=== PATIENT | male | born 1940 | race Caucasian/White ===

== ENCOUNTER → 2017-07-24 15:37 | Outpatient (CLI) | payer MEDICARE, OTHER, SELFPAY ==
[2017-07-24 18:21] LABS: Vitamin D,25 Hydroxy 49.2 ng/mL (29.95-100.01)
[2017-07-24 18:26] LABS: ALB/GLOB Ratio 1.1 RATIO (0.9-2.4); AST(SGOT) 37 U/L (15-37); Alanine Aminotransfer ALT/SGPT 72 U/L (16-61); Albumin, Serum 3.8 g/dL (3.2-5.0); Alkaline Phosphatase 74 U/L (45-117); Anion Gap 7 (5-15); BUN 19 mg/dL (7-18); BUN/Creat Ratio 17.4 RATIO (10-20); Calcium,Total 8.5 mg/dL (8.5-10.1); Chloride 98 mmol/L (98-107); Creatinine, Serum 1.09 mg/dL (0.70-1.30); EST Glomerular Filtration Rate 70 mL/min (>60); Est Glom Filt Rate - Afr Amer 85 mL/min (>60); Globulin 3.5 g/dL (2.2-4.2); Glucose 80 mg/dL (74-106); Potassium 4.1 mmol/L (3.5-5.1); Protein, Total 7.3 g/dL (6.4-8.2); Sodium Level 134 mmol/L (136-145); Thyroid Stim Hormone (TSH) 0.85 uIU/mL (0.358-3.74)
== END ==
PROVIDERS: Family Provider Internal Medicine; PCP Internal Medicine; Visit Provider Internal Medicine Endocrinology, Diabetes & Metabolism
DX: E03.8 Other specified hypothyroidism (principal); E55.9 Vitamin D deficiency, unspecified
CPT/HCPCS: 36415; 80053; 82306; 84443

== ENCOUNTER → 2018-03-20 07:18 | Outpatient (CLI) | payer MEDICARE, OTHER, SELFPAY ==
[2018-03-20 09:09] LABS: ALB/GLOB Ratio 1.1 RATIO (0.9-2.4); AST(SGOT) 26 U/L (15-37); Alanine Aminotransfer ALT/SGPT 52 U/L (16-61); Albumin, Serum 3.9 g/dL (3.2-5.0); Alkaline Phosphatase 63 U/L (45-117); Anion Gap 9 (5-15); BUN 17 mg/dL (7-18); BUN/Creat Ratio 18.7 RATIO (10-20); Calcium,Total 8.6 mg/dL (8.5-10.1); Chloride 96 mmol/L (98-107); Cholesterol 129 mg/dL (200); Creatinine, Serum 0.91 mg/dL (0.70-1.30); EST Glomerular Filtration Rate 86 mL/min (>60); Est Glom Filt Rate - Afr Amer 104 mL/min (>60); Globulin 3.7 g/dL (2.2-4.2); Glucose 115 mg/dL (74-106); High Density Lipoprotein 66 mg/dL; PSA,Total - Annual Screen 2.99 ng/mL (0.00-4.00); Potassium 4.3 mmol/L (3.5-5.1); Protein, Total 7.6 g/dL (6.4-8.2); Sodium Level 133 mmol/L (136-145); Triglycerides 67 mg/dL; Very Low Density Lipoprotein 13 mg/dL (5-40)
[2018-03-20 12:42] LABS: Hematocrit 42.8 % (40-54); Hemoglobin 14.4 g/dl (13.0-16.5); Mean Corp Hgb Conc 33.6 g/gl (32-36); Mean Corpuscular Hgb 30.6 pg (27.0-32.0); Mean Corpuscular Volume 91.1 fL (80-94); Mean Platelet Vol. 10.1 fl (6.2-12.0); Platelet Count 165 K/mm3 (150-450); RBC Distribution Width CV 13.3 % (11.6-14.6); RBC Distribution Width SD 43.8 fl (35.1-43.9); White Blood Count 5.1 K/mm3 (4.4-11.0)
[2018-03-20 12:43] LABS: Scan Indicated on CBC? Y/N NO
== END ==
PROVIDERS: Family Provider Internal Medicine; PCP Internal Medicine; Referring Provider Internal Medicine; Visit Provider Internal Medicine
DX: Z01.818 Encounter for other preprocedural examination (principal); E78.5 Hyperlipidemia, unspecified; Z12.5 Encounter for screening for malignant neoplasm of prostate
CPT/HCPCS: 36415; 80053; 80061; 84153; 85027; G0103

== ENCOUNTER → 2018-07-03 08:26 | Outpatient (CLI) | payer MEDICARE, OTHER, SELFPAY ==
[2018-07-03 10:32] LABS: Glucose 118 mg/dL (74-106)
[2018-07-03 12:17] LABS: Hemoglobin A1c 5.8 % (4.2-6.3)
== END ==
PROVIDERS: Family Provider Internal Medicine; PCP Internal Medicine; Referring Provider Internal Medicine; Visit Provider Internal Medicine
DX: R73.9 Hyperglycemia, unspecified (principal); E78.5 Hyperlipidemia, unspecified; I10 Essential (primary) hypertension
CPT/HCPCS: 36415; 82947; 83036

== ENCOUNTER 2018-08-26 13:30 | Outpatient (RCR) | payer MEDICARE, OTHER, SELFPAY ==
--- NOTE | 2018-08-07 17:51 | HP.OTEVAL ---
Patient's Visit Information AVEL SANFORD is a 78 year old M, referred to Occupational Therapy by Josesito Alas PA-C, with a diagnosis of synovitis and tenosynovitis R hand. Date of Evaluation: 08/07/18 Occupational Therapist: Alba Alcaraz - Subjective Subjective: Pt seen for initial occupational therapy evaluation secondary to synovitis and tenosynovitis R middle finger and ring finger with increased pain R middle finger and R ring finger. Pt had trigger finger release March 2018 Dr. Kraft was doing well and now has started having increased pain and stiffness with decreased ROM. Pt states increased pain and stiffness of joints especially in the morning when he wakes up and will sometimes wake him up at night. Pt R hand dominent. Pt lives by himself, independent with all BADLs/IADLs works out several times a week variety of classes silver sneakers at [facility]. - Pain R MF and RF 4 Pain Intensity Range: 0, 9 - Objective Objective/Observation: increased edema R hand MF, RF, decreased AROM R MF, RF - ROM ROM Comments: R MP MF -10/100 RF -5/99 L MP MF 0/108 RF 0/109. R PIP MF -3/95 RF -3/88 L PIP MF 0/103 RF 0/106. R DIP MF -3/40 RF -2/25 L DIP MF 0/60 RF 0/40 - Strength Employment Program Representative: R 33#, L 75# Lateral Pinch: R 8 # L 17# Tripod Pinch: R 2#, L 12# - Edema Other: Slight edema volar side R hand - Sensation Sensation Comments: tingling R MF and RF occassionally, not at time of evaluation - Quick DASH-Disab of Arm,Shoulder& Hand Quick DASH Score: 34.0900 - Goals Goal:: Pt will progress w/ R hand non destructive tester strength by 40# to be able to open containers independently by d/c from OT. Pt will progress w/ R hand tripod pinch by 8# to increase indep with functional living tasks. Goal:: Pt will progress with R middle finger MP extension by 8' and PIP extension by 3' to increase indep with functional living tasks by d/c from OT services. Goal:: Pt will demo no pain greater than 1/10 R hand with movement by d/c from OT services. Goal:: Pt will be educated on R UE HEP with good understanding and demo 100%x - Rehabilitation General Assessment: Pt seen for initial OT evaluation for synovitis, tenosynovitis R hand with decreased AROM R hand MF and RF, increased pain with movement, increased edema R hand and decreased non destructive tester strength R hand all indicating a need for skilled OT interventions to increase AROM, decrease pain and edema, increase non destructive tester/pinch strength R hand, educate on HEP and manual massage techniques for R hand to increase pts ability to use R hand normally again. 1-2x/wk x 4-6wks Rehabilitation Potential: Excellent - Anticipated Interventions Anticipated Interventions: A/AAROM/PROM, Strengthening, Edema Control, Scar Care, Massage, Modalities, Orthoses, Joint Protection/Energy Conservation, Ergonomic Education, Fine Motor Coord/John, ADL Training, Education re assistive Equipment, Education re Diagnosis, Education re Self Massage Techniques, Home Program - Visit Plan Frequency: 1-2x /Week Duration: 4-6 Weeks General Plan: increase AROM, decrease pain and edema, increase non destructive tester/pinch strength R hand, educate on HEP and manual massage techniques for R hand to increase pts ability to use R hand normally again with use of modalities as needed TEXT: Thank you for the opportunity to evaluate your patient. For Medicare and Medicare HMO plans, please review the plan of care and approve it. It will need to be FAXED BACK to us at [phone] for Medicare purposes. Please let me know if there are questions or concerns regarding this plan of care. Physician Signature: Date:
== END 2018-08-26 19:00 | disposition home or self-care (01) ==
LOC: OT 13:30
PROVIDERS: Family Provider Internal Medicine; PCP Internal Medicine; Referring Provider Physician Assistant; Visit Provider Physician Assistant
DX: M65.841 Other synovitis and tenosynovitis, right hand (principal)
CPT/HCPCS: 97035; 97110; 97140; 97165; 97166; 97530

== ENCOUNTER → 2018-10-01 | Outpatient (CLI) | payer MEDICARE, OTHER, SELFPAY ==
[2018-10-01 10:41] LABS: Vitamin D,25 Hydroxy 46.1 ng/mL (29.95-100.01)
[2018-10-01 10:55] LABS: AST(SGOT) 40 U/L (15-37); Alanine Aminotransfer ALT/SGPT 73 U/L (16-61); Albumin, Serum 3.8 g/dL (3.2-5.0); Alkaline Phosphatase 69 U/L (45-117); Anion Gap 7 (5-15); BUN 13 mg/dL (7-18); Calcium,Total 8.6 mg/dL (8.5-10.1); Chloride 102 mmol/L (98-107); Creatinine, Serum 0.93 mg/dL (0.70-1.30); EST Glomerular Filtration Rate 84 mL/min (>60); Est Glom Filt Rate - Afr Amer 102 mL/min (>60); Globulin 3.7 g/dL (2.2-4.2); Glucose 110 mg/dL (74-106); Protein, Total 7.5 g/dL (6.4-8.2); Sodium Level 137 mmol/L (136-145); Thyroid Stim Hormone (TSH) 1.05 uIU/mL (0.358-3.74)
== END | disposition home or self-care (01) ==
LOC: MTLAB 08:09
PROVIDERS: Family Provider Internal Medicine; PCP Internal Medicine; Referring Provider Internal Medicine Endocrinology, Diabetes & Metabolism; Visit Provider Internal Medicine Endocrinology, Diabetes & Metabolism
DX: E03.8 Other specified hypothyroidism (principal); E55.9 Vitamin D deficiency, unspecified; R73.01 Impaired fasting glucose
CPT/HCPCS: 36415; 80053; 82306; 84443

== ENCOUNTER → 2019-01-15 | Outpatient (CLI) | payer MEDICARE, OTHER, SELFPAY ==
[2019-01-15 10:44] LABS: AST(SGOT) 27 U/L (15-37); Alanine Aminotransfer ALT/SGPT 52 U/L (16-61); Albumin, Serum 3.9 g/dL (3.2-5.0); Alkaline Phosphatase 78 U/L (45-117); Anion Gap 5 (5-15); BUN 18 mg/dL (7-18); BUN/Creat Ratio 17.6 RATIO (10-20); Calcium,Total 8.8 mg/dL (8.5-10.1); Chloride 102 mmol/L (98-107); Creatinine, Serum 1.02 mg/dL (0.70-1.30); EST Glomerular Filtration Rate 75 mL/min (>60); Est Glom Filt Rate - Afr Amer 91 mL/min (>60); Glucose 102 mg/dL (74-106); Potassium 4.1 mmol/L (3.5-5.1); Protein, Total 7.9 g/dL (6.4-8.2); Sodium Level 135 mmol/L (136-145); Thyroid Stim Hormone (TSH) 1.39 uIU/mL (0.358-3.74)
== END | disposition home or self-care (01) ==
LOC: MTLAB 08:57
PROVIDERS: Family Provider Internal Medicine; PCP Internal Medicine; Referring Provider Internal Medicine Endocrinology, Diabetes & Metabolism; Visit Provider Internal Medicine Endocrinology, Diabetes & Metabolism
DX: E03.8 Other specified hypothyroidism (principal); Z12.5 Encounter for screening for malignant neoplasm of prostate
CPT/HCPCS: 36415; 80053; 84443

== ENCOUNTER 2019-01-16 10:58 | Emergency (ER) | payer MEDICARE, OTHER, SELFPAY ==
[2019-01-16 10:58] VITALS: BP 157/69; PULSE 54; RESP 16; TEMP 36.4; O2SAT 97; BMI 36.2
[2019-01-16 11:18] VITALS: BP 139/73; PULSE 52; RESP 16; O2SAT 96
[2019-01-16] MEDS: Morphine 4 MG/ML Syringe IM ×2 (12:26→13:40)
--- NOTE | 2019-01-16 12:50 | RAD_ITS ---
STUDY: X-RAY - PELVIS AND LEFT HIP REASON FOR EXAM: Male, 78 years old. Chronic left hip pain. TECHNIQUE: 3 views of the pelvis and hip. COMPARISON: None. FINDINGS: There is a non-specific bowel gas pattern. Metallic seeds are seen within the prostate. There is narrowing with cortical sclerosis and osteophyte formation of the sacroiliac joint consistent with degenerative osteoarthritic changes. Normal bilateral superior and inferior pubic rami. There is narrowing with sclerosis of the pubic symphysis. Normal bilateral ischial tuberosities. Normal visualized femoral head. There is osteoarthritic spur formation of the acetabular rim. There is moderate articular joint space narrowing of the hip. Degenerative changes in the lower lumbar spine. RAD/HIP, UNI W/ Pelvis 2-3 Views IMPRESSION: Degenerative changes. Electronically Signed: Alessio Arroyo, at 13:23 EDT , Service support ,
[2019-01-16 13:44] VITALS: RESP 18
--- NOTE | 2019-01-16 15:25 | CM.ED ---
SOCIAL WORK INFORMANT: DR. LOZA REASON FOR REFERRAL: RESOURCES LIVING ARRANGEMENTS: HOME ALONE IN A [address] [place] EMPLOYMENT/FINANCIAL: RETIRED/MEDICARE DME: WALKER (IF NEEDED) PCP: DR. PANCHAL MENTAL HEALTH HX: PATIENT DENIES ANY HX OF MENTAL HEALTH SUBSTANCE ABUSE HX: PATIENT DENIES ANY HX OF SUBSTANCE ABUSE ASSESSMENT: MET WITH PATIENT AND FRIEND AT BEDSIDE. PATIENT GAVE PERMISSION FOR THIS WORKER TO SPEAK OPENLY WITH FRIEND PRESENT. PATIENT STATES LIVES HOME ALONE AND IS INDEPENDENT WITH ALL ADLS. PATIENT STATES DOES NOT USE ASSISTIVE DEVICE, BUT IF NEEDED HAS A WALKER. PATIENT'S PLAN FOR DISCHARGE IS HOME. DISCUSSED HOME CARE SERVICES AND INFORMATION PROVIDED. PATIENT DENIES NEEDS AT THIS TIME. UPDATED DR. LOZA. PLAN: HOME BEFORE. RESOURCES PROVIDED. SINGH VILLARREAL, RN PSYCH, GARBAGE TRUCK DISPATCHER.
--- NOTE | 2019-01-16 15:35 | ED.VISSUMM ---
- ER Visit Summary Date of Service: 01/16/19 Chief Complaint: Left hip pain History of Present Illness: The patient is a 78 M who presents with left hip pain that became worse today. Patient states he was golfing yesterday. Patient states that he had difficulty getting out of bed today because of the pain. Patient states the pain is actually been waxing and waning over the past 5 days. Patient describes the pain is sharp. Patient denies any paresthesias or weakness. Patient states the pain is worse with movement and improves with rest. Patient denies any popping or snapping sensation. Physical Examination: Vital signs are stable. Patient is afebrile. Patient is in no acute distress. Musculoskeletal exam reveals tenderness over the left hip. There is decreased range of motion due to pain. There is no deformity noted. There is no pain over the knee or thigh. Pedal pulses are equal bilaterally. There are no sensory deficits noted. Strength is 5/5 bilaterally in the lower extremities. Heart was regular rate and rhythm. Lungs are clear and equal bilaterally. Abdomen is soft and nontender. Test Results: X-rays of the left hip were obtained. There is no acute fracture. Emergency Department Course and Treatment: Patient was given 2 injections of morphine here in the emergency department. Patient was able to ambulate here in the emergency department. Friend was concerned because he does live at home alone. Social work was in to evaluate the patient. He does have a walker at home that he will be able to use. She also gave him numbers for home health agencies to help him at home. Patient prefers to go home. Patient will follow up with his primary care physician in 5 to 7 days. Patient was given a prescription for a short course of Percocet. Patient understood and was agreeable with the plan. All questions were answered. Disposition: Discharge home Impression: Left hip strain This note was generated with [employer] dictation software. It may contain incorrect words, spelling, and punctuation that were not noted in review of the chart prior to signing ED Disposition - Plan for ED Patient: Disposition: Home or Assisted Living Diagnosis: Muscle strain of left hip Instructions: Hip Strain Prescriptions: Oxycodone HCl/Acetaminophen [Percocet 5/325] 1 tab PO Q6H PRN PRN 3 Days #12 tab PRN Reason: Pain Prescription Printed Referrals: Priya Chin [Primary Care Provider] - 3-5 Days
[2019-01-16 16:03] VITALS: BP 182/78; PULSE 53; RESP 18; O2SAT 97
== END 2019-01-16 16:04 | disposition home or self-care (01) ==
PROVIDERS: Emergency Provider Emergency Medicine; Family Provider Internal Medicine; PCP Internal Medicine
DX: S76.012A Strain of muscle, fascia and tendon of left hip, initial encounter (principal); I10 Essential (primary) hypertension; E78.00 Pure hypercholesterolemia, unspecified; E03.9 Hypothyroidism, unspecified; Z79.899 Other long term (current) drug therapy; X58.XXXA Exposure to other specified factors, initial encounter; Y93.53 Activity, golf; Y92.39 Other specified sports and athletic area as the place of occurrence of the external cause; Y99.8 Other external cause status
CPT/HCPCS: 73502; 96372; 99284

== ENCOUNTER 2019-03-18 11:00 | Outpatient (RCR) | payer MEDICARE, OTHER, SELFPAY ==
--- NOTE | 2019-01-22 17:00 | HP.PTEVAL_ITS ---
Patient's Visit Information AVEL SANFORD is a 78 year old M referred to Physical Therapy by Priya Chin with a diagnosis of LOW BACK PAIN. Date of Evaluation: 01/22/19 Physical Therapist: Anuel Chavez, PT, Cert MDT, OCS - Visit Plan Frequency: 2x /Week Duration: 4 Weeks Plan: PT INTERVENTIONS INTIALLY MODALTIES ,DLS,POSTURAL EX,GRADED LUMBAR ROM - Subjective Findings: This 78 y/o male presents to physical therapy with low back pain. Patient stated back pain from golfing 2 weeks . Patient has left LB ,patient went to ER due to get out bed thus went to ER via ambulance. Patient had MRI in hospital. Patie nt has been in bed past week. Patient aggraveting symptoms walking,bending,lifting,sitting,standing . Patient has difficulty even tie shoes affects self hygine and ADLS. Patient symptoms affects sleeping. Denies parathesia/tingling. Coughing/sneezing -. Bowel/bladder-. Alleviating factors CP. Patient back pain affects pain affects QOL. SOCIAL: SINGLE. VOCATION; retired - Pain Left Back Pain Intensity (Out of 10): 7 Pain Intensity Range: 10 - Objective POSTURE: foward posture ,lateral shift. GAIT :ambulates with mild foward posture antalgic gait. PALAPTION: tender L-S left. NEURO; denies parathesia/tingling ,reflexes 2/3. FLEXABLITY: hams /piriformis mod tight. LUMBAR ROM: flexion mpd loss pain ,extension mod loss pain side glides severe left pain right mod loss - Special Tests L/S Slump test left side: Negative L/S Slump test right side: Negative L/S Left Straight Leg Raise: Negative L/S Right Straight Leg Raise: Negative Lumbar Standing: Flexion - Mechanical Response: No effect Lumbar Standing: Flexion - Symptoms During Testing: Increases Lumbar Standing: Flexion - Symptoms After Testing: Worse Lumbar Standing: Extension - Mechanical Response: No effect Lumbar Standing: Extension - Symptoms During Testing: Increases Lumbar Standing: Extension - Symptoms After Testing: Worse Lumbar Standing: Right Side Glides - Mechanical Response: No effect Lumbar Standing: Right Side [place] - Symptoms During Testing: No effect Lumbar Standing: Right Side [place] - Symptoms After Testing: No effect Lumbar Standing: Left Side [place] - Mechanical Response: No effect Lumbar Standing: Left Side [place] - Symptoms During Testing: Increases Lumbar Standing: Left Side [place] - Symptoms After Testing: Worse - Goals Goal 1:: Independant with HEP Goal Time Frame: 4-6 Weeks Goal 2:: Improve posture for ADL'S Goal Time Frame: 4-6 Weeks Goal 3:: Patient to decrease lumbar pain by 50% or > to improve function with gait, Goal Time Frame: 4-6 Weeks Goal 4:: Patient to improve lumbar ROM for function of recovery Goal Time Frame: 4-6 Weeks Goal 5:: Patient to increase BACK owestry score by 5 points or > to improve QOL. Goal Time Frame: 4-6 Weeks - Rehabilitation Potential Physical Therapy Diagnosis: This pateint has left L-S pain woth possible lateral foraminal stenosis with disc involvemnt. with no perference of direction ,increase pain affecting gait ADL's and QOL thus benifit from skilled PT Rehabilitation Potential: Good - Anticipated Interventions Patient/Client Instruction: Educate patient on: Condition, Plan of Care For the Purpose of:: To decrease pain, To increase ROM, To improve muscle performance and motor function, To improve ability to perform ADL's, To increase tolerance to activity/condition/position, To improve ability of physical actions for home/community/work/leisure, To improve health of tissue, To decrease soft tissue restriction, To increase flexibility/ROM, To reduce risk of recurrence, To improve ability to perform tasks related to life management Therapeutic Exercise to Include: Strength training, Body mechanics, Postural training, Flexibilty training, Dynamic Lumbar Stabilization For the Purpose of:: To decrease pain, To increase ROM, To improve muscle performance and motor function, To improve ability to perform ADL's, To increase tolerance to activity/condition/position, To improve ability of physical actions for home/community/work/leisure, To improve health of tissue, To decrease soft tissue restriction, To increase flexibility/ROM TENS: Yes IF ES: Yes Cryotherapy (ice pack, ice massage): Yes Thermo therapy (hot pack): Yes Ultrasound (thermal/non thermal): Yes For the Purpose of:: To decrease pain, To decrease swelling/inflammation, To improve nutrient delivery to tissue, To increase oxygenation perfusion, To improve health of tissue, To decrease soft tissue restriction Thank you for the opportunity to evaluate your patient. For Medicare and Medicare HMO plans, please review the plan of care and approve it. It will need to be FAXED BACK to us at [phone] for Medicare purposes. For Medicare only, by signing this I certify the plan of care. Please let me know if there are questions or concerns regarding this plan of care. Physician Signature: Date:
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
--- NOTE | 2019-02-24 09:59 | HP.PTREVAL_ITS ---
Priya Chin, It has been my pleasure to treat AVEL SANFORD over the last 9 visits for LOW BACK PAIN. Please see the progress note below for an update on the physical therapy plan of care! Subjective: Doing well ,progressing well with ROM and strength with less pain.Improving ADLS' Objective/Function: POSTURE: mild foward posture. GAIT: reciprocal pattern. NEURO: intact. MMT: QUADS/HAMS 4/5,HIP 4-/5. LUMBAR ROM: flexion min/mod loss ,extension mod loss,side glides min/mod loss Plan Plan: PT INTERVENTIONS 2xWK FOR 4WKS ,DLS,POSTURAL EX, LUMBAR ROM,MODALTIES Goals Goal 1:: Independant with HEP Goal Time Frame: 4-6 Weeks Goal Progress: Progressing Goal 2:: Improve posture for ADL'S Goal Time Frame: 4-6 Weeks Goal Progress: Progressing Goal 3:: Patient to decrease lumbar pain by 50% or > to improve function with gait, Goal Time Frame: 4-6 Weeks Goal Progress: Progressing Goal 4:: Patient to improve lumbar ROM for function of recovery Goal Time Frame: 4-6 Weeks Goal Progress: Progressing Goal 5:: Patient to increase BACK owestry score by 5 points or > to improve QOL. Goal Time Frame: 4-6 Weeks Goal Progress: Progressing Anticipated Interventions Patient/Client Instruction: Educate patient on: Condition, Plan of Care For the Purpose of:: To decrease pain, To increase ROM, To improve muscle performance and motor function, To improve ability to perform ADL's, To increase tolerance to activity/condition/position, To improve ability of physical actions for home/community/work/leisure, To improve health of tissue, To decrease soft tissue restriction, To increase flexibility/ROM, To reduce risk of recurrence, To improve ability to perform tasks related to life management Therapeutic Exercise to Include: Strength training, Body mechanics, Postural training, Flexibilty training, Dynamic Lumbar Stabilization For the Purpose of:: To decrease pain, To increase ROM, To improve muscle performance and motor function, To improve ability to perform ADL's, To increase tolerance to activity/condition/position, To improve ability of physical actions for home/community/work/leisure, To improve health of tissue, To decrease soft tissue restriction, To increase flexibility/ROM TENS: Yes IF ES: Yes Cryotherapy (ice pack, ice massage): Yes Thermo therapy (hot pack): Yes Ultrasound (thermal/non thermal): Yes For the Purpose of:: To decrease pain, To decrease swelling/inflammation, To improve nutrient delivery to tissue, To increase oxygenation perfusion, To improve health of tissue, To decrease soft tissue restriction Please do not hesitate to contact me at [phone] by phone or Fax: if you have questions or concerns regarding this new plan of care! Sincerely, Anuel Chavez, PT, Cert MDT, OCS
--- NOTE | 2019-03-18 11:37 | HP.PTDCSUM ---
HP - PT D/C Summary It has been my pleasure to treat AVEL SANFORD under orders from Priya Chin, for the diagnosis of LOW BACK PAIN for a total of 18 visit(s). Discharge Date: 03/18/19 Please see the following information for a summary of their discharge status. - Subjective Subjective: Doing alot better ..Able to ADLS' and housework tasks - Pain Left Back Pain Intensity (Out of 10): 2 - Overall Improvement % Improvement: 70 - Objective Objective/Function: POSTURE: MILD FOWARD POSTURE. GAIT: RECIPROCAL PATTERN MILD FOWARD POSTURE. NEURO: intact. BLE: 08/15. LUMBAR ROM: MIN/MOD LOSS FLEXION,EXTENSION MOD LOSS,SIDE GLIDES MOD LOSS. FLEXABLITY: HAMS MILD TIGHT - Goals Goal 1:: Independant with HEP Goal Progress: Goal Met Goal 2:: Improve posture for ADL'S Goal Progress: Goal Met Goal 3:: Patient to decrease lumbar pain by 50% or > to improve function with gait, Goal Progress: Goal Met Goal 4:: Patient to improve lumbar ROM for function of recovery Goal Progress: Goal Met Goal 5:: Patient to increase BACK owestry score by 5 points or > to improve QOL. Goal Progress: Goal Met - Plan Plan: D/C - D/C Information Discharge Comments: HEP If there are questions or concerns regarding this patient's physical therapy, please feel free to call me at [phone]. Thank you for the referral of this patient. Sincerely, Anuel Chavez, PT, Cert MDT, OCS
--- NOTE | 2019-03-18 12:09 | HP.PTDCS(2) ---
HP - PT D/C Summary (2) It has been my pleasure to treat AVEL SANFORD under orders from Priya Chin, for the diagnosis of CERVICAL DDD for a total of 10 visit(s). Discharge Date: 03/18/19 Please see the following information for a summary of their discharge status. - Subjective Subjective: Doing good .. plan to see pain management. Nubmess in shoulders worse today - Overall Improvement % Improvement: 60 - Objective Objective/Function/Assessment: POSTURE: MOD THORACIC KYPHOSIS. AROM BUE: WFL. MMT: GROSSLY 4/5. CERVICAL ROM: FLEXION MIN LOS ,LATERAL FLEXION/ROTATION MOD LOSS NO PAIN - Goals Patient Goals: Improve Mobility, Improve Function, Decrease Pain Goal 1:: DECREASE C/O NECK AND UE SX'S Goal Progress: Goal Met Goal 2:: IMPROVE LIFTING, READING, SLEEP, WORK, DRIVING AND RECREATIONAL FUNCTION Goal Progress: Goal Met Goal 3:: INSTRUCT IN PROPHYLAXIS Goal Progress: Goal Met - Plan Plan: D/C TO HOME AND PAIN MANAGEMENT - D/C Information Discharge Comments: HEP, PLAN TO SEE PAIN MANAGEMNET If there are questions or concerns regarding this patient's physical therapy, please feel free to call me at [phone]. Thank you for the referral of this patient. Sincerely, Anuel Chavez, PT, Cert MDT, OCS
== END 2019-03-18 19:00 | disposition home or self-care (01) ==
LOC: PT 11:00
PROVIDERS: Family Provider Internal Medicine; PCP Internal Medicine; Referring Provider Internal Medicine; Visit Provider Internal Medicine
DX: M54.5 Low back pain (principal)
CPT/HCPCS: 97035; 97110; 97162; 97164; 97530

== ENCOUNTER → 2019-04-13 10:15 | Outpatient (CLI) | payer MEDICARE, OTHER, SELFPAY ==
[2019-04-13 12:34] LABS: Absolute Lymphocyte Count 1.36 X10^3/uL (0.83-4.51); Absolute Neutrophil Count 2.8 X10^3/uL (2.0-7.7); Basophil# 0.05 X10^3/uL; Eosinophil# 0.36 X10^3/uL; Eosinophils% 6.8 % (0-5); Hematocrit 45.8 % (40-54); Hemoglobin 15.3 g/dL (13.0-16.5); Lymphocyte # 1.36 X10^3/ul (4.0); Lymphocyte % 25.9 % (19-41); Mean Corp Hgb Conc 33.4 g/dL (32-36); Mean Corpuscular Hgb 30.5 pg (27.0-32.0); Mean Corpuscular Volume 91.2 fL (80-94); Monocyte# 0.65 X10^3/uL; Monocyte% 12.4 % (0-10); NRBC Flagged by Analyzer 0 % (0-5); Neutrophil # 2.82 X10^3/uL (2.7-7.7); Neutrophil % 53.5 % (47-70); Platelet Count 175 K/mm3 (150-450); RBC Distribution Width CV 13.9 % (11.6-14.6); RBC Distribution Width SD 46.3 fl (35.1-43.9); Red Blood Count 5.02 M/mm3 (4.6-6.2); White Blood Count 5.3 K/mm3 (4.4-11.0)
[2019-04-13 12:38] LABS: Hemoglobin A1c 5.9 % (4.2-6.3)
[2019-04-13 12:47] LABS: AST(SGOT) 30 U/L (15-37); Alanine Aminotransfer ALT/SGPT 54 U/L (16-61); Albumin, Serum 3.9 g/dL (3.2-5.0); Alkaline Phosphatase 69 U/L (45-117); Anion Gap 8 (5-15); BUN 18 mg/dL (7-18); Calcium,Total 8.8 mg/dL (8.5-10.1); Chloride 101 mmol/L (98-107); Cholesterol 142 mg/dL (200); EST Glomerular Filtration Rate 77 mL/min (>60); Est Glom Filt Rate - Afr Amer 93 mL/min (>60); Globulin 3.8 g/dL (2.2-4.2); Glucose 114 mg/dL (74-106); High Density Lipoprotein 59 mg/dL; PSA,Total - Annual Screen 1.07 ng/mL (0.00-4.00); Protein, Total 7.7 g/dL (6.4-8.2); Sodium Level 135 mmol/L (136-145); T4 Free Direct 1.09 ng/dL (0.76-1.46); Thyroid Stim Hormone (TSH) 1.18 uIU/mL (0.358-3.74); Triglycerides 115 mg/dL; Uric Acid 6.8 mg/dL (3.5-7.2); Very Low Density Lipoprotein 23 mg/dL (5-40)
[2019-04-14 10:05] LABS: Vitamin D,25 Hydroxy 66.9 ng/mL (29.95-100.01)
== END ==
PROVIDERS: Family Provider Internal Medicine; PCP Internal Medicine; Referring Provider Internal Medicine; Visit Provider Internal Medicine
DX: Z00.00 Encounter for general adult medical examination without abnormal findings (principal); I10 Essential (primary) hypertension; R73.9 Hyperglycemia, unspecified; E55.9 Vitamin D deficiency, unspecified; M10.9 Gout, unspecified; E03.9 Hypothyroidism, unspecified; Z12.5 Encounter for screening for malignant neoplasm of prostate; Z13.31 Encounter for screening for depression; Z13.9 Encounter for screening, unspecified
CPT/HCPCS: 36415; 80053; 80061; 82306; 83036; 84153; 84439; 84443; 84550; 85025; G0103

== ENCOUNTER → 2019-09-01 | Outpatient (CLI) | payer MEDICARE, OTHER, SELFPAY ==
[2019-09-01 18:02] LABS: Vitamin D,25 Hydroxy 55.5 ng/mL
[2019-09-01 18:25] LABS: ALB/GLOB Ratio 1.1 RATIO (0.9-2.4); AST(SGOT) 38 U/L (15-37); Alanine Aminotransfer ALT/SGPT 66 U/L (16-61); Albumin, Serum 3.8 g/dL (3.2-5.0); Alkaline Phosphatase 68 U/L (45-117); Anion Gap 8 (5-15); BUN 20 mg/dL (7-18); BUN/Creat Ratio 21.7 RATIO (10-20); Calcium,Total 8.5 mg/dL (8.5-10.1); Chloride 100 mmol/L (98-107); Creatinine, Serum 0.92 mg/dL (0.70-1.30); EST Glomerular Filtration Rate 85 mL/min (>60); Est Glom Filt Rate - Afr Amer 102 mL/min (>60); Globulin 3.4 g/dL (2.2-4.2); Glucose 101 mg/dL (74-106); Potassium 3.9 mmol/L (3.5-5.1); Protein, Total 7.2 g/dL (6.4-8.2); Sodium Level 136 mmol/L (136-145); Thyroid Stim Hormone (TSH) 1.13 uIU/mL (0.358-3.74)
== END | disposition home or self-care (01) ==
LOC: MTLAB 15:52
PROVIDERS: PCP Internal Medicine; Referring Provider Internal Medicine Endocrinology, Diabetes & Metabolism; Visit Provider Internal Medicine Endocrinology, Diabetes & Metabolism
DX: E03.8 Other specified hypothyroidism (principal); E55.9 Vitamin D deficiency, unspecified
CPT/HCPCS: 36415; 80053; 82306; 84443

== ENCOUNTER → 2019-10-07 11:12 | Outpatient (CLI) | payer MEDICARE, OTHER, SELFPAY ==
[2019-10-07 13:51] LABS: ALB/GLOB Ratio 1.1 RATIO (0.9-2.4); AST(SGOT) 26 U/L (15-37); Alanine Aminotransfer ALT/SGPT 53 U/L (16-61); Albumin, Serum 3.8 g/dL (3.2-5.0); Alkaline Phosphatase 70 U/L (45-117); Anion Gap 9 (5-15); BUN 22 mg/dL (7-18); BUN/Creat Ratio 21.6 RATIO (10-20); Calcium,Total 8.5 mg/dL (8.5-10.1); Chloride 96 mmol/L (98-107); Creatinine, Serum 1.02 mg/dL (0.70-1.30); EST Glomerular Filtration Rate 75 mL/min (>60); Est Glom Filt Rate - Afr Amer 91 mL/min (>60); Globulin 3.6 g/dL (2.2-4.2); Glucose 91 mg/dL (74-106); Potassium 3.7 mmol/L (3.5-5.1); Protein, Total 7.4 g/dL (6.4-8.2); Sodium Level 131 mmol/L (136-145); Thyroid Stim Hormone (TSH) 0.74 uIU/mL (0.358-3.74)
== END ==
PROVIDERS: PCP Internal Medicine; Referring Provider Internal Medicine Endocrinology, Diabetes & Metabolism; Visit Provider Internal Medicine Endocrinology, Diabetes & Metabolism
DX: E03.8 Other specified hypothyroidism (principal)
CPT/HCPCS: 36415; 80053; 84443

== ENCOUNTER 2020-02-20 21:59 | Inpatient (IN) | payer MEDICARE, OTHER, SELFPAY ==
[2020-02-20] VITALS (7 sets, daily range): BP systolic 142–213; BP diastolic 78–101; PULSE 70–82; RESP 14–20; TEMP 36.8; O2SAT 95–96; BMI 34.6
--- NOTE | 2020-02-20 22:01 | ED.RN ---
RN CALLED FOR EKG, NO OLD EKGS IN MUSE
--- NOTE | 2020-02-20 22:08 | EKG12_ITS ---
Test Reason : CP Blood Pressure : / mmHG Vent. Rate : 084 BPM Atrial Rate : 084 BPM P-R Int : 144 ms QRS Dur : 100 ms QT Int : 378 ms P-R-T Axes : 062 -13 086 degrees QTc Int : 446 ms Normal sinus rhythm Marked ST abnormality, possible lateral subendocardial injury Abnormal ECG Confirmed by NORMA MONZON, BAILEE ([id number]), video tape editor ALE MAS ([id number]) on 02/23/2020 12:38:17 PM Referred By: ANGEL Confirmed By:BAILEE GRENE MD
--- NOTE | 2020-02-20 22:08 | EKG12_ITS ---
Test Reason : CP Blood Pressure : / mmHG Vent. Rate : 074 BPM Atrial Rate : 074 BPM P-R Int : 178 ms QRS Dur : 110 ms QT Int : 402 ms P-R-T Axes : 064 -24 061 degrees QTc Int : 446 ms Sinus rhythm with occasional Premature ventricular complexes Consider Voltage criteria for Left ventricular hypertrophy Nonspecific ST - segment Abnormality Abnormal ECG Confirmed by NORMA MONZON, BAILEE ([id number]), gang investigator ALE MAS ([id number]) on 02/23/2020 12:40:20 PM Referred By: ANGEL Confirmed By:BAILEE GREEN MD
--- NOTE | 2020-02-20 22:08 | RAD_ITS ---
STUDY: X-RAY CHEST REASON FOR EXAM: Male, 79 years old. Chest pain. TECHNIQUE: Single frontal view of the chest. COMPARISON: None. FINDINGS: The lungs are clear and expanded. There is no demonstrated pleural abnormality. Normal size heart. Normal mediastinum and shant. Normal visualized pulmonary arteries. Normal visualized aortic arch and descending thoracic aorta. Normal visualized thoracic spine. Normal visualized ribs, clavicles, and shoulders. There is no demonstrated abnormality of the visualized soft tissue structures of the upper abdomen. RAD/Chest 1 View (Portable) IMPRESSION: Normal x-ray examination of the chest. Electronically Signed: Sandor Tejada MD at 23:19 EDT , Service support ,
[2020-02-20] MEDS: Nitroglycerin SL (ED/IMG/CATH) 0.4 MG TABLET SUBLINGUAL ×3 (22:17→22:27)
[2020-02-20 22:19] LABS: Absolute Lymphocyte Count 1.68 X10^3/uL (0.83-4.51); Absolute Neutrophil Count 3.3 X10^3/uL (2.0-7.7); Basophil# 0.03 X10^3/uL; Basophil% 0.5 % (0-1); Eosinophil# 0.21 X10^3/uL; Eosinophils% 3.6 % (0-5); Hematocrit 43.9 % (40-54); Hemoglobin 14.5 g/dL (13.0-16.5); Lymphocyte # 1.68 X10^3/ul (4.0); Lymphocyte % 28.5 % (19-41); Mean Corpuscular Hgb 30.3 pg (27.0-32.0); Mean Corpuscular Volume 91.6 fL (80-94); Mean Platelet Vol. 10.1 fl (6.2-12.0); Monocyte# 0.67 X10^3/uL; Monocyte% 11.4 % (0-10); NRBC Flagged by Analyzer 0 % (0-5); Neutrophil # 3.29 X10^3/uL (2.7-7.7); Neutrophil % 55.8 % (47-70); Platelet Count 154 K/mm3 (150-450); RBC Distribution Width CV 13.1 % (11.6-14.6); RBC Distribution Width SD 44.9 fl (35.1-43.9); Red Blood Count 4.79 M/mm3 (4.6-6.2); White Blood Count 5.9 K/mm3 (4.4-11.0)
[2020-02-20] MEDS: Ondansetron 4 MG/2 ML Vial IV (22:19)
[2020-02-20 22:28] LABS: Prothrombin Time (Protime)PT. 12.7 SECONDS (11.7-14.9)
[2020-02-20 22:29] LABS: Partial Thromboplast Time 27.2 Seconds (24.1-36.2)
[2020-02-20 22:42] LABS: Anion Gap 8 (5-15); BUN 23 mg/dL (7-18); BUN/Creat Ratio 22.3 RATIO (10-20); Calcium,Total 9.2 mg/dL (8.5-10.1); Chloride 107 mmol/L (98-107); Creatinine, Serum 1.03 mg/dL (0.70-1.30); EST Glomerular Filtration Rate 74 mL/min (>60); Est Glom Filt Rate - Afr Amer 90 mL/min (>60); Estimated Creatinine Clearance 67.88 ml/min; Glucose 186 mg/dL (74-106); Magnesium 1.8 mg/dL (1.6-2.6); Potassium 3.3 mmol/L (3.5-5.1); Sodium Level 139 mmol/L (136-145); Thyroid Stim Hormone (TSH) 0.98 uIU/mL (0.358-3.74)
[2020-02-20] MEDS: Heparin Injection (Vial) 5,000 UNIT/ML VIAL 9500 UNIT IV (22:49)
[2020-02-20] MEDS: HEPARIN/D5w 25,000 UNITS 25,000 UNITS/250 ML IV.SOLN. 16 UNITS IV (22:50)
[2020-02-20] MEDS: Nitroglycerin Infusion 250 ML 3 MG CONT INF (23:08)
[2020-02-20] MEDS: 0.9% Normal Saline 1,000 ML 150 ML IV (23:10)
--- NOTE | 2020-02-20 23:30 | ED.DCSUM_ITS ---
- ER Visit Summary Date of Service: 02/20/20 Chief Complaint: Chest pain History of Present Illness: The patient is a [address] Lares. He had a stress test approximately 3 years ago. Is never had a heart catheterization. Reports has had chest pain with exertion for approximately 1 month. Because of this he is not really been undergoing much activity. Patient reports that he has left-sided chest pain he describes a sharp that began 15 minutes ago while he was at rest. Zeta 10 at worst and 7-10 currently. Is worsened by exertion. Is relieved by nothing. He is had nausea. No vomiting. It is also made him short of breath and diaphoretic. He denies any radiation of the pain. Physical Examination: Vitals: Stable. Afebrile. General: Well-nourished and well-developed. Diaphoretic. Head: Normocephalic atraumatic. Neck: Supple, no lymphadenopathy. No JVD. Nontender. Cardiovascular: Regular rate and rhythm. No murmurs. Respiratory: No respiratory distress. Clear to auscultation bilaterally. Abdominal: Soft, nontender, nondistended, normal bowel sounds. No guarding, rebound, or peritoneal signs. Back: Nontender. Extremities: Nontender, no edema. Skin: Normal color, no rash. Neurologic: Alert and oriented ?3. Cranial nerves II through XII are intact. Normal strength and sensation. Psych: Normal affect. Test Results: EKG is sinus at [address] elevation in lead aVR and ST depression in leads I, aVL, V3 to V6. There is no old EKG for comparison. Repeat EKG shows the ST depression to be improved and a PVC. CBC shows monocytes of 11. Chem-7 shows a potassium of 3.3, BUN of 23, glucose 186. TSH is 0.98. Coags are normal. Troponin is negative. Clinical Impression(s) from Imaging Studies Chest X-Ray 02/20/20 22:08 IMPRESSION: Normal x-ray examination of the chest. Electronically Signed: Sandor Tejada MD at 23:19 EDT , Service support , Emergency Department Course and Treatment: Patient was given aspirin p.o. After discussion with Dr. Rodriguez, who reviewed the EKGs, the patient was started on a heparin drip with a bolus. His pain resolved with nitroglycerin and he was placed on an IV. He is chest pain-free currently. Treatment Plan: Patient was discussed with Dr. Shah. The patient will be admitted to the hospital for further evaluation and treatment. Disposition: Admitted in improved condition. Impression: 1. Unstable angina. 2. NEFTALY score 5. 3. Critical care time 33 minutes. This note was generated with [employer] dictation software. It may contain incorrect words, spelling, and punctuation that were not noted in review of the chart prior to signing ED Disposition - Plan for ED Patient: Referrals: Priya Chin MD [Primary Care Provider] -
--- NOTE | 2020-02-20 23:51 | PCM.HP.STD ---
Problem List (1) Unstable angina Status: Acute (2) Hypertensive urgency Status: Acute (3) Hypokalemia Status: Acute (4) Hyperglycemia Status: Acute (5) HTN (hypertension) Status: Chronic Qualifiers: Hypertension type: essential hypertension Qualified Code(s): I10 - Essential (primary) hypertension (6) HLD (hyperlipidemia) Status: Chronic Qualifiers: Hyperlipidemia type: unspecified Qualified Code(s): E78.5 - Hyperlipidemia, unspecified (7) DEEPAK (obstructive sleep apnea) Status: Chronic (8) Anxiety and depression Status: Chronic (9) Obesity (BMI 30.0-34.9) Status: Chronic History of Present Illness Date of Admission: 02/20/20 Chief Complaint: Chest pain 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 He notes he has been having L sided chest discomfort, mild, 1/10 with no associated symptoms with activity for the past ~4 weeks. He noted this evening following NG administration in the ED his pain quickly subsided to 1/10. He notes significant family cardiac history with her and father each undergoing a CABG twice although in their 60s and 70s in addition to a brother who underwent a CABG in his 50s. Work-up in the ED included T 98.3, heart rate 82, BP initially 213/101, respiratory rate 14, 96% on room air, repeat BP following nitroglycerin administration 165/87, CBC with WBC 5.9, hemoglobin 14.5, platelet 154 without market shift, unremarkable coags, BMP with potassium 3.3, glucose 186 otherwise not marked appearing, magnesium 1.8, TSH 0.98, troponin less than 0.015, EKG w/ sinus rhythm with noted initial ST elevations in aVR with ST depression in leads I, aVL, V3 to V6 with then a repeat EKG demonstrating ST depression improved with evidence of PVCs following nitroglycerin administration. In the ED patient administered Zofran, nitroglycerin, aspirin therapy transitioned eventually to nitroglycerin drip and heparin drip following ED discussion with cardiology. Past Medical History Past Medical History (Chronic Problems): Chronic Problems HTN (hypertension) (Chronic) HLD (hyperlipidemia) (Chronic) DEEPAK (obstructive sleep apnea) (Chronic) Anxiety and depression (Chronic) Obesity (BMI 30.0-34.9) (Chronic) Allergies No Known Allergies Allergy (Verified 01/16/19 11:21) Home Medications: Ambulatory Orders Medication Instructions Recorded Aspirin [Aspirin, Baby] 81 mg PO DAILY@0800 01/16/19 Atorvastatin Calcium 20 mg PO DAILY 01/16/19 Cholecalciferol (Vitamin D3) 50,000 unit PO QWEEK 01/16/19 [Vitamin D] Fluoxetine [Prozac] 40 mg PO DAILY 01/16/19 Levothyroxine [Synthroid] 50 mcg PO DAILY 01/16/19 Valsartan/Hydrochlorothiazide 1 ea PO DAILY 01/16/19 [Valsartan-Hctz 320-12.5 mg Tab] Psychiatric History: Anxiety, Depression Lives: Alone Smoking Status: Never smoker Tobacco Use: Non-smoker Alcohol: Occasional Drugs: None - *Family History Maternal History Items: High Cholesterol, Heart Disease, Hypertension, - - Patient notes a significant maternal family history of heart disease, mother with initial bypass surgery at age 72 and eventually requiring an additional bypass cardiac surgery. Paternal History Items: High Cholesterol, Heart Disease, Hypertension, - - Patient notes a significant paternal family history of heart disease, father with initial bypass surgery at age 65 and eventually requiring an additional bypass cardiac surgery. Sibling History Items: High Cholesterol, Heart Disease, Hypertension, - - Patient notes brother with a significant heart disease history with initial heart attack and bypass surgery at age 55. Review of Systems Constitutional: Reports: Malaise, Weakness, Fatigue. Denies: Anorexia, Chills, Fever, Weight Change HEENT: Denies: Head Aches, Sinus Congestion, Sinus Drainage Cardiovascular: Reports: Chest Pain. Denies: Light Headedness, Orthopnea, Palpitations, Syncope Respiratory: Reports: Shortness of Breath. Denies: Cough, Shortness of breath at rest, Shortness of breath upon exertion, Sputum production Gastrointestinal: Reports: Nausea. Denies: Abdominal Pain, Vomiting Genitourinary: Denies: Dysuria Musculoskeletal: Reports: Joint Pain, Neck Pain, Shoulder Pain. Denies: Joint Tenderness Skin: Denies: Rash, Wounds Neurological: Denies: Numbness, Tingling, Focal weakness Psychiatric: Reports: Anxiety, Depression. Denies: Homicidal Ideations, Suicidal Ideations Hematologic/ Lymphatic: Denies: Easy Bruising, Easy Bleeding VTE Information - Inpt Only VTE Present on Admission: No VTE Mechan Device Prophylaxis: SCD's VTE Pharm Prophylaxis ordered?: Yes Patient Problems: Active and Suspected Problems Unstable angina (Acute) Hypertensive urgency (Acute) Hypokalemia (Acute) Hyperglycemia (Acute) Subjective: Patient seated upright in the ED bed, mildly fatigued appearance, notes chest discomfort is significantly improved, 1 out of 10. Objective: Physical Examination: General: awake, alert, oriented x 3 and cooperative, seated upright in the ED bed in no apparent distress, chest pain improved, 1 out of 10 in severity.. Skin: normal color, turgor, no icterus, cyanosis. HEENT: AT/NC, EOMI, PERRLA, MMM, no carotid bruits or JVD noted. Lungs: CTA bilaterally, moderate effort, mild decrease BL bases, no rales, ronchi or wheezing. Heart: Regular rate and rhythm; no gallop, rub audible. Abdomen: soft, obese, NTTP, ND, hyperactive BS, no obvious HSM; however, habitus makes examination difficult. Extremities: no cyanosis, clubbing, or edema. Neurological: patient awake, alert, oriented x 3; cognitive function intact; pupils equally reactive to light and accomodation; cranial nerves II-XII grossly normal, moving all 4 extremities, no focal deficits, strength moderately global decrease secondary to acute presentation complaints. Psychiatric: affect appears mildly fatigued otherwise normal, no acute evidence of depressive or anxiety feelings. - Physical Exam Vitals/I&O's: Vital Signs Temp Pulse Resp BP Pulse Ox 98.3 F 70 20 H 142/81 H 95 02/20/20 22:03 02/20/20 23:08 02/20/20 23:00 02/20/20 23:08 02/20/20 23:00 Oxygen Delivery Method Room Air Weight: 262 lb 5.601 oz Body Mass Index (BMI) 34.6 Laboratory Results 02/20/20 22:08: WBC 5.9, RBC 4.79, Hgb 14.5, Hct 43.9, MCV 91.6, MCH 30.3, MCHC 33.0, RDW Std Deviation 44.9 H, RDW Coeff of Tc 13.1, Plt Count 154, MPV 10.1, Immature Gran % (Auto) 0.200, Neut % (Auto) 55.8, Lymph % (Auto) 28.5, [place] % (Auto) 11.4 H, Eos % (Auto) 3.6, Baso % (Auto) 0.5, Absolute Neuts (auto) 3.3, Absolute Lymphs (auto) 1.68, Nucleated RBC % 0 02/20/20 22:08: PT 12.7, INR 1.0, APTT 27.2 02/20/20 22:08: Sodium 139, Potassium 3.3 L, Chloride 107, Carbon Dioxide 24.0, Anion Gap 8, BUN 23 H, Creatinine 1.03, Estim Creat Clear Calc 67.88, Est GFR (MDRD) Af Amer 90, Est GFR (MDRD) Non-Af 74, BUN/Creatinine Ratio 22.3 H, Glucose 186 H, Calcium 9.2, Magnesium 1.8, Troponin I < 0.015, TSH 0.98 Current Medications Heparin Sodium (Porcine) (Heparin Na) 0 unit IV UD PRN; Protocol PRN Reason: dose adjustment Sodium Chloride () 1,000 mls @ 150 mls/hr IV .[id number] [facility] Last Admin: 02/20/20 23:10 Dose: 150 mls/hr Documented by: Heparin Sodium/Dextrose () 25,000 units in 250 mls @ 16 mls/hr IV .[id number] [facility]; Protocol Last Admin: 02/20/20 22:50 Dose: 1,600 units/hr, 16 mls/hr Documented by: Nitroglycerin/Dextrose () 250 mls @ 3 mls/hr CONT INF .[id number] [facility]; Protocol Last Admin: 02/20/20 23:08 Dose: 5 mcg/min, 3 mls/hr Documented by: Assessment/Plan All Active Problems Unstable angina (Acute) Hypertensive urgency (Acute) Hypokalemia (Acute) Hyperglycemia (Acute) 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 1. Chest Pain concerning for unstable angina with EKG changes: EKG w/ sinus rhythm with noted initial ST elevations in aVR with ST depression in leads I, aVL, V3 to V6 with then a repeat EKG demonstrating ST depression improved with evidence of PVCs following nitroglycerin administration. In the ED patient administered Zofran, nitroglycerin, aspirin therapy transitioned eventually to nitroglycerin drip and heparin drip following ED discussion with cardiology. Initial troponin less than 0.015, magnesium 1.8. Given usage of nitroglycerin drip will plan ICU admission, continue cardiology consultation, maintain on a monitored bed, continue serial cardiac enzymes and EKGs. Continue heparin drip. Continue medical management w/ asa, ARB, add BB, statin w/ AM FLP. Cardiology consulted, plan for cardiac catheterization. Maintain NPO after midnight. ASA, morphine. 2. Hypertensive Urgency: Patient with several day history of elevated blood pressures, significantly elevated upon ED presentation at 213/101, improving following nitroglycerin administration, significant EKG changes as noted #1 with concern for unstable angina with incomplete block concern for discussions with cardiology. We will continue valsartan, add beta-shad, continue for now hydrochlorothiazide but regimen may be discontinued pending cardiology discretion. 3. Hypokalemia: Admission K+ 3.3, magnesium 1.8, supplementation given, repeat level in AM. 4. Hyperglycemia: Admission glucose 186, no history of diabetes, will obtain A1c and if significant would plan oral medication initiation once appropriate, nutrition consultation, transition to ADA diet with Accu-Cheks and sliding scale. 5. Hyperlipidemia: Continue home statin regimen. AM FLP. 6. Anxiety and depression: We will continue patient home Prozac regimen. 7. Hypothyroidism: Continue home synthroid regimen, TSH normal. 8. Obesity: Weight loss and lifestyle changes encouraged. 9. DEEPAK: We will continue BiPAP nightly. 10. DVT prophylaxis: SCDs, Lovenox. 11. CODE status: Patient HCPOA is Kathy Montoya, his daughter and living will is currently in place. Discussed CODE status at length including difference between FULL code, DNR-CCA and DNR-CC status. Following discussions about the differences in these status, requested Full Code status. Advanced Care Planning Face to Face Time: 16 minutes. Inpatient E&M: 28869 Init Hosp L3 Procedures: 54058 Advncd Care Plan 30 Min
[2020-02-21] VITALS (44 sets, daily range): BP systolic 103–177; BP diastolic 55–118; PULSE 53–72; RESP 11–22; TEMP 36.9; O2SAT 95–99; BMI 36.3; BMI 36.4
--- NOTE | 2020-02-21 00:50 | ECHOCS_ITS ---
Reason For Study: Arrhythmia Procedure This was a 2D Doppler, Color Flow transthoracic echocardiogram. The study was technically difficult. Contrast injection was performed. Exam performed portable in ICU/CCU. Left Ventricle Normal LV size. The estimated ejection fraction is 60 %. Unable to assess diastolic dysfunction. No regional wall motion abnormalities noted. Right Ventricle Normal RV size. Normal systolic function. Atria The left atrium is mildly enlarged. Normal right atrium. No doppler evidence for ASD. Mitral Valve There is moderate mitral annular calcification. There is no mitral valve stenosis. Trivial mitral valve insufficiency. Tricuspid Valve There is no tricuspid stenosis. Trivial tricuspid valve insufficiency. Pulmonary artery systolic pressure is 40 mmHg. Aortic Valve Trisinus/trileaflet aortic valve. Mild aortic stenosis. Trivial aortic valve insufficiency. Pulmonic Valve There is no pulmonic valvular stenosis. No pulmonic valve insufficiency. Great Vessels Normal aortic root. Pericardium/Pleural No pericardial effusion. Medication Diluted definity 3ml given slow IV push to enhance endocardial definition. MMode/2D Measurements & Calculations LVIDd: 5.2 cm IVSd: 1.8 cm LVOT diam: 2.2 cm LVIDs: 4.1 cm LVPWd: 1.7 cm RVDd: 4.3 cm FS: 20.8 % LVOT area: 3.7 cm2 Ao root diam: 3.9 cm LAV(MOD-sp4): 89.7 ml LVAd ap4: 55.1 cm2 LA dimension: 4.5 cm EDV(MOD-sp4): 244.7 ml EDV(sp4-el): 257.9 ml LVAs ap4: 31.8 cm2 ESV(MOD-sp4): 96.2 ml ESV(sp4-el): 96.9 ml EF(MOD-sp4): 60.7 % EF(sp4-el): 62.4 % SV(MOD-sp4): 148.5 ml SV(sp4-el): 161.0 ml LA A4 area: 25.9 cm2 RA A4 area: 19.2 cm2 Time Measurements MV dec time: 0.26 sec Doppler Measurements & Calculations MV E max elia: 87.6 cm/sec Lat Peak E' Elia: 9.0 cm/sec Med Peak E' Elia: 6.1 cm/sec MV A max elia: 82.2 cm/sec E/E' lat: 9.7 E/E' med: 14.3 MV E/A: 1.1 MV V2 max: 82.3 cm/sec MV P1/2t max elia: 81.5 cm/sec Ao V2 max: 238.3 cm/sec MV max P.7 mmHg MV P1/2t: 99.5 msec Ao max P.7 mmHg MV V2 mean: 47.7 cm/sec MV dec slope: 240.1 cm/sec2 Ao V2 mean: 161.1 cm/sec MV mean P.0 mmHg MVA(P1/2t): 2.2 cm2 Ao mean P.2 mmHg MV V2 VTI: 30.0 cm Ao V2 VTI: 53.4 cm MVA(VTI): 3.9 cm2 ANGELIQUE(I,D): 2.2 cm2 ANGELIQUE(V,D): 1.9 cm2 AI max elia: 344.0 cm/sec LV V1 max: 120.9 cm/sec SV(LVOT): 117.6 ml AI max P.3 mmHg LV V1 max P.8 mmHg LV V1 mean P.2 mmHg AI dec slope: 99.0 cm/sec2 LV V1 mean: 82.0 cm/sec AI P1/2t: 1018 msec LV V1 VTI: 31.6 cm PA V2 max: 86.7 cm/sec TR max elia: 313.6 cm/sec TR max P.3 mmHg Interpretation Summary Unable to assess diastolic dysfunction. Trivial mitral valve insufficiency. Mild aortic stenosis. Trivial aortic valve insufficiency. The estimated ejection fraction is 60 %. Contrast injection was performed. The study was technically difficult. Ordering Physician: Waleska Shah Referring Physician: Priya Chin Performed By: Aj Brantley RCS
[2020-02-21 01:36] LABS: Hemoglobin A1c 5.5 % (3.8-5.6)
[2020-02-21 04:40] LABS: Absolute Lymphocyte Count 1.68 X10^3/uL (0.83-4.51); Basophil# 0.03 X10^3/uL; Basophil% 0.5 % (0-1); Eosinophil# 0.21 X10^3/uL; Eosinophils% 3.6 % (0-5); Hematocrit 40.2 % (40-54); Hemoglobin 13.3 g/dL (13.0-16.5); Lymphocyte # 1.68 X10^3/ul (4.0); Lymphocyte % 28.6 % (19-41); Mean Corp Hgb Conc 33.1 g/dL (32-36); Mean Corpuscular Hgb 30.5 pg (27.0-32.0); Mean Corpuscular Volume 92.2 fL (80-94); Mean Platelet Vol. 10.2 fl (6.2-12.0); Monocyte# 0.97 X10^3/uL; Monocyte% 16.5 % (0-10); NRBC Flagged by Analyzer 0 % (0-5); Neutrophil # 2.98 X10^3/uL (2.7-7.7); Neutrophil % 50.6 % (47-70); Platelet Count 143 K/mm3 (150-450); RBC Distribution Width CV 13.2 % (11.6-14.6); RBC Distribution Width SD 44.8 fl (35.1-43.9); Red Blood Count 4.36 M/mm3 (4.6-6.2); White Blood Count 5.9 K/mm3 (4.4-11.0)
[2020-02-21 05:10] LABS: Partial Thromboplast Time 131.1 Seconds (24.1-36.2)
[2020-02-21] MEDS: Levothyroxine 50 MCG Tablet PO (05:19)
[2020-02-21 05:47] LABS: ALB/GLOB Ratio 1.1 RATIO (0.9-2.4); AST(SGOT) 28 U/L (15-37); Alanine Aminotransfer ALT/SGPT 34 U/L (16-61); Albumin, Serum 3.4 g/dL (3.2-5.0); Alkaline Phosphatase 73 U/L (45-117); Anion Gap 6 (5-15); BUN 23 mg/dL (7-18); BUN/Creat Ratio 27.1 RATIO (10-20); Calcium,Total 8.5 mg/dL (8.5-10.1); Chloride 106 mmol/L (98-107); Cholesterol 104 mg/dL (200); Creatinine, Serum 0.85 mg/dL (0.70-1.30); EST Glomerular Filtration Rate 93 mL/min (>60); Est Glom Filt Rate - Afr Amer 112 mL/min (>60); Estimated Creatinine Clearance 77.51 ml/min; Globulin 3.1 g/dL (2.2-4.2); Glucose 98 mg/dL (74-106); High Density Lipoprotein 58 mg/dL; Potassium 4.2 mmol/L (3.5-5.1); Protein, Total 6.5 g/dL (6.4-8.2); Sodium Level 139 mmol/L (136-145); Triglycerides 35 mg/dL; Very Low Density Lipoprotein 7 mg/dL (5-40)
--- NOTE | 2020-02-21 05:55 | EKG12_ITS ---
Test Reason : AM EKG Blood Pressure : / mmHG Vent. Rate : 055 BPM Atrial Rate : 055 BPM P-R Int : 150 ms QRS Dur : 084 ms QT Int : 408 ms P-R-T Axes : 101 -17 -15 degrees QTc Int : 390 ms Sinus bradycardia with sinus arrhythmia Inferior infarct , age undetermined Abnormal ECG When compared with ECG of 21-FEB-2020 04:45, MANUAL COMPARISON REQUIRED, DATA IS UNCONFIRMED Confirmed by LUDY MONZON, RICHARD ([id number]), fashion editor JESSY CONTRERAS ([id number]) on 02/24/2020 11:23:45 AM Referred By: JAYA Confirmed By:MARCIA BOSTON MD
--- NOTE | 2020-02-21 07:04 | PCM.PN.HOSP ---
Patient Problems: Active and Suspected Problems Unstable angina (Acute) Hypertensive urgency (Acute) Hypokalemia (Acute) Hyperglycemia (Acute) Reason for Visit: Acute non-STEMI Subjective: Patient is a 79-year-old gentleman admitted with chest pain subsequent serial enzymes obtained as part of patient's evaluation came back consistent with acute non-STEMI treatment initiated per protocol admitted to the intensive care unit with consultation placed to cardiology Objective: GENERAL: cooperative HEENT: Atraumatic; EYES; Anicteric, Normal Conjunctiva NECK; supple, normal thyroid, RESPIRATORY: Diminished to auscultation CARDIOVASCULAR: Regular S1 S2, GI: soft, normoactive bowel sounds, : No Renal angle tenderness; EXTREMITIES: No edema, no clubbing, MUSCULOSKELETAL: no muscle waisting NEURO: Awake; no lateralizing signs. SKIN: No Rash PSYCH; Flat affect Vitals/I&O's: Vital Signs Temp Pulse Resp BP Pulse Ox 98.4 F 57 L 21 H 115/59 L 97 02/21/20 04:00 02/21/20 07:00 02/21/20 07:00 02/21/20 07:00 02/21/20 07:00 Oxygen Flow Rate (L/min) 2 Oxygen Delivery Method Nasal Cannula Weight: 118.3 kg Body Mass Index (BMI) 36.3 Intake and Output for Last 24 Hours 02/19/20 02/20/20 02/21/20 23:59 23:59 23:59 Intake Total 902.72 / 902.72 Output Total 300 / 300 Balance 602.72 / 602.72 Laboratory Results 02/20/20 22:08: WBC 5.9, RBC 4.79, Hgb 14.5, Hct 43.9, MCV 91.6, MCH 30.3, MCHC 33.0, RDW Std Deviation 44.9 H, RDW Coeff of Tc 13.1, Plt Count 154, MPV 10.1, Immature Gran % (Auto) 0.200, Neut % (Auto) 55.8, Lymph % (Auto) 28.5, Bee % (Auto) 11.4 H, Eos % (Auto) 3.6, Baso % (Auto) 0.5, Absolute Neuts (auto) 3.3, Absolute Lymphs (auto) 1.68, Nucleated RBC % 0 02/20/20 22:08: PT 12.7, INR 1.0, APTT 27.2 02/20/20 22:08: Sodium 139, Potassium 3.3 L, Chloride 107, Carbon Dioxide 24.0, Anion Gap 8, BUN 23 H, Creatinine 1.03, Estim Creat Clear Calc 67.88, Est GFR (MDRD) Af Amer 90, Est GFR (MDRD) Non-Af 74, BUN/Creatinine Ratio 22.3 H, Glucose 186 H, Calcium 9.2, Magnesium 1.8, Troponin I < 0.015, TSH 0.98 02/20/20 22:50: Hemoglobin A1c 5.5 02/21/20 01:15: Troponin I 2.010 H* 02/21/20 04:26: WBC 5.9, RBC 4.36 L, Hgb 13.3, Hct 40.2, MCV 92.2, MCH 30.5, MCHC 33.1, RDW Std Deviation 44.8 H, RDW Coeff of Tc 13.2, Plt Count 143 L, MPV 10.2, Immature Gran % (Auto) 0.200, Neut % (Auto) 50.6, Lymph % (Auto) 28.6, Bee % (Auto) 16.5 H, Eos % (Auto) 3.6, Baso % (Auto) 0.5, Absolute Neuts (auto) 3.0, Absolute Lymphs (auto) 1.68, Nucleated RBC % 0 02/21/20 04:26: Sodium 139, Potassium 4.2, Chloride 106, Carbon Dioxide 27.0, Anion Gap 6, BUN 23 H, Creatinine 0.85, Estim Creat Clear Calc 77.51, Est GFR (MDRD) Af Amer 112, Est GFR (MDRD) Non-Af 93, BUN/Creatinine Ratio 27.1 H, Glucose 98, Calcium 8.5, Total Bilirubin 0.40, AST 28, ALT 34, Alkaline Phosphatase 73, Total Protein 6.5, Albumin 3.4, Globulin 3.1, Albumin/Globulin Ratio 1.1, Triglycerides 35, Cholesterol 104, LDL Cholesterol 39, VLDL Cholesterol 7, HDL Cholesterol 58 02/21/20 04:26: Troponin I 3.520 H* 02/21/20 04:26: APTT 131.1 H* Current Medications Acetaminophen (Tylenol) 650 mg PO Q6H PRN PRN PRN Reason: Pain Score 1-10/Temp > 100.7 F Al Hydroxide/Mg Hydroxide (Mylanta Ii) 30 ml PO Q6H PRN PRN PRN Reason: Gastric Burning Albuterol Sulfate (Ventolin Aerosols) 2.5 mg INHALATION Q2H PRN PRN PRN Reason: Dyspnea, wheezing Aspirin (Aspirin, Baby) 81 mg PO DAILY@0800 [facility] Atorvastatin Calcium (Lipitor) 80 mg PO QHS [facility] Carvedilol (Coreg) 3.125 mg PO BID [facility] Famotidine (Pepcid) 20 mg PO BID [facility] Fluoxetine HCl (Prozac) 40 mg PO DAILY [facility] Guaifenesin (Robitussin) 10 ml PO Q4H PRN PRN PRN Reason: COUGH Heparin Sodium (Porcine) (Heparin Na) 0 unit IV UD PRN; Protocol PRN Reason: dose adjustment Hydrochlorothiazide () 12.5 mg PO DAILY [facility] Heparin Sodium/Dextrose () 25,000 units in 250 mls @ 16 mls/hr IV .[id number] [facility]; Protocol Last Titration: 02/21/20 06:00 Dose: 0 units/hr, 0 mls/hr Documented by: Nitroglycerin/Dextrose () 250 mls @ 3 mls/hr CONT INF .[id number] [facility]; Protocol Last Titration: 02/21/20 06:00 Dose: 10 mcg/min, 6 mls/hr Documented by: Sodium Chloride () 1,000 mls @ 100 mls/hr IV .Q10H [facility] Last Admin: 02/21/20 01:39 Dose: Not Given Documented by: Sodium Chloride () 250 mls @ 15 mls/hr IV .[id number] PRN PRN Reason: Saline Flush Sodium Chloride () 250 mls @ 15 mls/hr IV .[id number] PRN PRN Reason: Additional IVPB Infusion Levothyroxine Sodium (Synthroid) 50 mcg PO DAILY@0600 [facility] Last Admin: 02/21/20 05:19 Dose: 50 mcg Documented by: Losartan Potassium (Cozaar) 100 mg PO DAILY [facility] Magnesium Hydroxide (Milk Of Magnesia) 30 ml PO DAILY PRN PRN PRN Reason: Constipation Melatonin (Melatonin) 3 mg PO QHS PRN PRN PRN Reason: INSOMNIA Morphine Sulfate () 2 mg IV Q3H PRN PRN PRN Reason: Pain Score 6-10 Ondansetron HCl (Zofran) 4 mg IV Q8H PRN PRN PRN Reason: NAUSEA/VOMITING Oxycodone HCl (Oxyir) 5 mg PO Q4H PRN PRN PRN Reason: Pain Score 4-5 Prochlorperazine Edisylate (Compazine Iv) 5 mg IV Q4H PRN PRN PRN Reason: Breakthrough Nausea/Vomiting Psyllium Hydrophilic Mucilloid (Metamucil) 1 packet PO DAILY PRN PRN PRN Reason: Constipation Senna/Docusate Sodium (Senokot-S, Ghazala-Colace) 2 tablet PO BID PRN PRN PRN Reason: Constipation Sodium Chloride () 10 - 40 ml IV UD PRN PRN Reason: SALINE FLUSH Throat Lozenges (Cepacol Sore Throat Lozenge) 1 lozenge MUCOUS MEM Q2H PRN PRN PRN Reason: SORE THROAT STROKE Vital Signs/Narrative: Vital Signs Temp Pulse Resp BP BP Pulse Ox 02/21/20 07:00 57 L 21 H 115/59 L 97 02/21/20 06:00 56 L 15 138/69 H 138/69 H 99 02/21/20 05:00 145/72 H 02/21/20 04:45 134/58 H 02/21/20 04:30 157/83 H 02/21/20 04:15 161/90 H 02/21/20 04:00 98.4 F 53 L 13 167/83 H 98 02/21/20 03:32 53 L Medical Necessity - Tobacco Use Smoking Status: Never smoker Tobacco Use: Non-smoker Assessment/Plan All Active Problems Unstable angina (Acute) Hypertensive urgency (Acute) Hypokalemia (Acute) Hyperglycemia (Acute) Patient is a 79-year-old gentleman admitted with chest pain subsequent serial enzymes obtained as part of patient's evaluation came back consistent with acute non-STEMI treatment initiated per protocol admitted to the intensive care unit with consultation placed to cardiology 1. Acute non-STEMI ?Patient has been admitted to the intensive care unit treatment initiated per protocol with heparin, antiplatelet therapy, beta-blockers and statin therapy. 2D echo ordered consultation placed to cardiology 2. Hypertension - Blood pressure controlled, home medications continued with dose adjustment as needed 3. Dyslipidemia -Patient is on statin therapy, continued at home dose 4. Hypothyroidism - Patient is on levothyroxine home dose continued 5. Depression with anxiety ?Patient is on SSRI 6. Obstructive sleep apnea ?On BiPAP at night 7. Obesity with BMI of 36.4 ?Weight loss advised 8. 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 DVT prophylaxis ?Patient on heparin Active Medications Acetaminophen (Tylenol) 650 mg PO Q6H PRN PRN PRN Reason: Pain Score 1-10/Temp > 100.7 F Al Hydroxide/Mg Hydroxide (Mylanta Ii) 30 ml PO Q6H PRN PRN PRN Reason: Gastric Burning Albuterol Sulfate (Ventolin Aerosols) 2.5 mg INHALATION Q2H PRN PRN PRN Reason: Dyspnea, wheezing Aspirin (Aspirin, Baby) 81 mg PO DAILY@0800 [facility] Last Admin: 02/21/20 08:18 Dose: 81 mg Documented by: Atorvastatin Calcium (Lipitor) 80 mg PO QHS [facility] Carvedilol (Coreg) 3.125 mg PO BID [facility] Famotidine (Pepcid) 20 mg PO BID [facility] Fluoxetine HCl (Prozac) 40 mg PO DAILY [facility] Guaifenesin (Robitussin) 10 ml PO Q4H PRN PRN PRN Reason: COUGH Heparin Sodium (Porcine) (Heparin Na) 0 unit IV UD PRN; Protocol PRN Reason: dose adjustment Hydrochlorothiazide () 12.5 mg PO DAILY [facility] Heparin Sodium/Dextrose () 25,000 units in 250 mls @ 16 mls/hr IV .[id number] [facility]; Protocol Last Titration: 02/21/20 06:00 Dose: 0 units/hr, 0 mls/hr Documented by: Nitroglycerin/Dextrose () 250 mls @ 3 mls/hr CONT INF .[id number] [facility]; Protocol Last Titration: 02/21/20 06:00 Dose: 10 mcg/min, 6 mls/hr Documented by: Sodium Chloride () 1,000 mls @ 100 mls/hr IV .Q10H [facility] Last Admin: 02/21/20 01:39 Dose: Not Given Documented by: Sodium Chloride () 250 mls @ 15 mls/hr IV .[id number] PRN PRN Reason: Saline Flush Sodium Chloride () 250 mls @ 15 mls/hr IV .[id number] PRN PRN Reason: Additional IVPB Infusion Levothyroxine Sodium (Synthroid) 50 mcg PO DAILY@0600 [facility] Last Admin: 02/21/20 05:19 Dose: 50 mcg Documented by: Losartan Potassium (Cozaar) 100 mg PO DAILY [facility] Magnesium Hydroxide (Milk Of Magnesia) 30 ml PO DAILY PRN PRN PRN Reason: Constipation Melatonin (Melatonin) 3 mg PO QHS PRN PRN PRN Reason: INSOMNIA Morphine Sulfate () 2 mg IV Q3H PRN PRN PRN Reason: Pain Score 6-10 Ondansetron HCl (Zofran) 4 mg IV Q8H PRN PRN PRN Reason: NAUSEA/VOMITING Oxycodone HCl (Oxyir) 5 mg PO Q4H PRN PRN PRN Reason: Pain Score 4-5 Prochlorperazine Edisylate (Compazine Iv) 5 mg IV Q4H PRN PRN PRN Reason: Breakthrough Nausea/Vomiting Psyllium Hydrophilic Mucilloid (Metamucil) 1 packet PO DAILY PRN PRN PRN Reason: Constipation Senna/Docusate Sodium (Senokot-S, Ghazala-Colace) 2 tablet PO BID PRN PRN PRN Reason: Constipation Sodium Chloride () 10 - 40 ml IV UD PRN PRN Reason: SALINE FLUSH Throat Lozenges (Cepacol Sore Throat Lozenge) 1 lozenge MUCOUS MEM Q2H PRN PRN PRN Reason: SORE THROAT Clinical Impression(s) from Imaging Studies Chest X-Ray 02/20/20 22:08 IMPRESSION: Normal x-ray examination of the chest. Electronically Signed: Sandor Tejada MD at 23:19 EDT , Service support , Inpatient E&M: [id number] [facility] H[facility] L3
[2020-02-21] MEDS: Aspirin 81 MG TAB.CHEW PO (08:18)
[2020-02-21] MEDS: Famotidine 20 MG Tablet PO ×2 (09:32→21:21)
[2020-02-21] MEDS: hydroCHLOROthiazide 12.5mg 12.5 MG PO (09:32)
[2020-02-21] MEDS: Losartan Potassium 100 MG Tablet PO (09:32)
[2020-02-21] MEDS: Carvedilol 3.125 MG TABLET PO ×2 (09:32→21:21)
[2020-02-21] MEDS: FLUoxetine 20 MG Capsule 40 MG PO (09:33)
[2020-02-21] MEDS: 0.9% Normal Saline 1,000 ML 100 ML IV ×2 (09:33→19:39)
--- NOTE | 2020-02-21 11:40 | PCM.CONS.C ---
Problem List (1) CAD (coronary artery disease) Status: Acute Reason for Consult Date of Consultation: 02/21/20 Reason for Consultation: CAD,NSTEMI History of Present Illness: The patient is a 79 year old M [] Patient seen and evaluated at bedside today along with the nursing staff. His symptoms of chest pain improved significantly still having mild discomfort in the left shoulder radiating to the left arm. Patient presented to the hospital last night with symptoms of chest pain His blood pressure in the ER was significant elevated 200/101. Past medical history includes history of depression, hypothyroidism. Has significant family history of CAD parents had a history of: Atherosclerosis as well as his brother He is a retired pharmacist Also on presentation he has hypokalemia with a low serum potassium around 3.2 has been corrected. His initial EKG is abnormal with ST depression noted in the inferolateral leads lead I aVL and also in the fourth V6 He also had a total R wave in V3 Presentation is likely posterior myocardial infarction, his current medication include the heparin, nitro drip, aspirin, beta-shad, Cozaar and atorvastatin And has been stable clinically Today his underlying EKG showed normal sinus with a heart rate in the range of around 59. He still had a prominent R wave in V3 with the Q waves noted in the inferior leads. This is consistent with inferior infarct/inferoposterior. I discussed the cardiac care plan in detail with the patient and nursing staff will continue current medication Patient will need evaluation by cardiac catheterization to assess for CAD and discuss myocardial revascularization based on the finding of cardiac cath As well he will be evaluated by echocardiogram. I also discussed with the patient and nursing staff if he had recurrent episode of chest pain will plan for urgent cardiac catheterization today. Past Medical History Allergies/Adverse Reactions: Allergies No Known Allergies Allergy (Verified 01/16/19 11:21) Home Medications: Ambulatory Orders Medication Instructions Recorded Aspirin [Aspirin, Baby] 81 mg PO DAILY@0800 01/16/19 Atorvastatin Calcium 20 mg PO DAILY 01/16/19 Cholecalciferol (Vitamin D3) 50,000 unit PO QWEEK 01/16/19 [Vitamin D] Fluoxetine [Prozac] 40 mg PO DAILY 01/16/19 Levothyroxine [Synthroid] 50 mcg PO DAILY 01/16/19 Valsartan/Hydrochlorothiazide 1 ea PO DAILY 01/16/19 [Valsartan-Hctz 320-12.5 mg Tab] Past Medical History (Chronic Problems): Chronic Problems HTN (hypertension) (Chronic) HLD (hyperlipidemia) (Chronic) DEEPAK (obstructive sleep apnea) (Chronic) Anxiety and depression (Chronic) Obesity (BMI 30.0-34.9) (Chronic) Psychiatric History: Anxiety, Depression - *Family History Maternal History Items: High Cholesterol, Heart Disease, Hypertension, - - Patient notes a significant maternal family history of heart disease, mother with initial bypass surgery at age 72 and eventually requiring an additional bypass cardiac surgery. Paternal History Items: High Cholesterol, Heart Disease, Hypertension, - - Patient notes a significant paternal family history of heart disease, father with initial bypass surgery at age 65 and eventually requiring an additional bypass cardiac surgery. Sibling History Items: High Cholesterol, Heart Disease, Hypertension, - - Patient notes brother with a significant heart disease history with initial heart attack and bypass surgery at age 55. Lives: Alone Smoking Status: Never smoker Tobacco Use: Non-smoker Alcohol: Occasional Drugs: None Review of Systems - Review of Systems General: Denies: Fever, Night Sweats, Fatigue Cardiovascular: Reports: Chest Discomfort. Denies: Shortness of Breath, Orthopnea, PND, Peripheral Edema, Palpitations, Lightheadedness, Dizziness, Near Syncope, Syncope Respiratory: Denies: Cough, Sputum Production, Hemoptysis Gastrointestinal: Denies: Hematemesis, Hematochezia, Melena Genitourinary: Denies: Dysuria, Hematuria Skin: Denies: Rash Objective: Vital Signs Temp Pulse Resp BP Pulse Ox 98.4 F 57 L 21 H 115/59 L 97 02/21/20 04:00 02/21/20 07:00 02/21/20 07:00 02/21/20 07:00 02/21/20 08:06 Oxygen Flow Rate (L/min) 2 Oxygen Delivery Method Nasal Cannula Weight: 260 lb 12.909 oz Body Mass Index (BMI) 36.3 Intake and Output for Last 24 Hours 02/19/20 02/20/20 02/21/20 23:59 23:59 23:59 Intake Total 1127.72 / 1127.72 Output Total 300 / 300 Balance 827.72 / 827.72 General: Awake, Alert, Oriented x 3 HEENT: PERRL, EOMI, Sclera Non Icteric Neck: Supple, Good ROM, No Lymph Node Enlargement Lungs: Clear to auscultation Cardiovascular: Regular Rhythm, Normal S1, Normal S2, No Murmurs, No Rubs, No Gallops Vascular: No Carotid Bruits, Normal Femoral Pulses, Normal Radial Pulses, Normal Dorsalis Pedal Pulse, Normal Posterior Tibial Pulses Abdomen: Bowel Sounds Present, Soft, Non Tender, No HSM, No Organomegaly Extremities: No Cyanosis, No Clubbing, No edema Neurological: No Focal Motor or Sensory Deficit 02/20/20 22:08: WBC 5.9, RBC 4.79, Hgb 14.5, Hct 43.9, MCV 91.6, MCH 30.3, MCHC 33.0, Plt Count 154, MPV 10.1, Immature Gran % (Auto) 0.200, Neut % (Auto) 55.8, Lymph % (Auto) 28.5, Sawyer % (Auto) 11.4 H, Eos % (Auto) 3.6, Baso % (Auto) 0.5, Absolute Neuts (auto) 3.3, Nucleated RBC % 0 02/20/20 22:08: PT 12.7, INR 1.0, APTT 27.2 02/20/20 22:08: Sodium 139, Potassium 3.3 L, Chloride 107, Carbon Dioxide 24.0, Anion Gap 8, BUN 23 H, Creatinine 1.03, Est GFR (MDRD) Af Amer 90, Est GFR (MDRD) Non-Af 74, BUN/Creatinine Ratio 22.3 H, Glucose 186 H, Calcium 9.2, Magnesium 1.8, Troponin I < 0.015 02/20/20 22:50: Hemoglobin A1c 5.5 02/21/20 01:15: Troponin I 2.010 H* 02/21/20 04:26: WBC 5.9, RBC 4.36 L, Hgb 13.3, Hct 40.2, MCV 92.2, MCH 30.5, MCHC 33.1, Plt Count 143 L, MPV 10.2, Immature Gran % (Auto) 0.200, Neut % (Auto) 50.6, Lymph % (Auto) 28.6, Sawyer % (Auto) 16.5 H, Eos % (Auto) 3.6, Baso % (Auto) 0.5, Absolute Neuts (auto) 3.0, Nucleated RBC % 0 02/21/20 04:26: Sodium 139, Potassium 4.2, Chloride 106, Carbon Dioxide 27.0, Anion Gap 6, BUN 23 H, Creatinine 0.85, Est GFR (MDRD) Af Amer 112, Est GFR (MDRD) Non-Af 93, BUN/Creatinine Ratio 27.1 H, Glucose 98, Calcium 8.5, Total Bilirubin 0.40, Triglycerides 35, Cholesterol 104, LDL Cholesterol 39, VLDL Cholesterol 7, HDL Cholesterol 58 02/21/20 04:26: Troponin I 3.520 H* 02/21/20 04:26: APTT 131.1 H* Rhythm: EKG: ECHO: Stress Test: Cardiac Cath: PCI: CT Surgery: Holter monitor: EPS: PPM: CXR: Chest CT Scan: Assessment/Plan Cardiac care plan discussed in detail 1. CAD with non-ST elevation myocardial infarction/inferior/inferoposterior 2. We will continue current cardiac medication with a beta-shad, statin, aspirin, heparin, nitro drip 3. If he had further episode of chest pain will proceed with cardiac catheterization. If he remains stable on the current medical treatment plan will be to perform cardiac catheterization in the morning 4. We will sign out for the cardiac team for continuation of cardiac care Cardiac care plan discussed in detail with the patient as well as the nursing staff and order has been set up for cardiac cath in the morning.
[2020-02-21] MEDS: HEPARIN/D5w 25,000 UNITS 25,000 UNITS/250 ML IV.SOLN. 13 UNITS IV (18:26)
[2020-02-21] MEDS: 0.9% Saline Lock 10 ML Syringe IV (18:27)
[2020-02-21 19:56] LABS: Partial Thromboplast Time 55.5 Seconds (24.1-36.2)
[2020-02-21] MEDS: MELATONIN 3 MG TABLET PO (21:21)
[2020-02-21] MEDS: Atorvastatin Calcium 80 MG Tablet PO (21:21)
--- NOTE | 2020-02-21 21:22 | CPS ---
Patient's home BiPAP machine setup at bedside. Will keep hospital machine in room till morning just in case patient doesn't tolerate home machine. If patient does well overnight then ENGINEER FIRST ASSISTANT will pull and clean hospital machine. Water chamber filled on home machine and mask placed within reach. If patient has any problems with machine he understands to let staff know so problems can be fixed.
[2020-02-22] VITALS (20 sets, daily range): BP systolic 122–178; BP diastolic 60–91; PULSE 55–82; RESP 12–20; TEMP 36.6–36.7; O2SAT 92–99
[2020-02-22 01:42] LABS: Partial Thromboplast Time 52.6 Seconds (24.1-36.2)
[2020-02-22] MEDS: Heparin Injection (Vial) 5,000 UNIT/ML VIAL IV (02:15)
[2020-02-22] MEDS: HEPARIN/D5w 25,000 UNITS 25,000 UNITS/250 ML IV.SOLN. 14 UNITS IV (02:16)
[2020-02-22 04:27] LABS: Absolute Lymphocyte Count 1.11 X10^3/uL (0.83-4.51); Absolute Neutrophil Count 5.2 X10^3/uL (2.0-7.7); Basophil# 0.03 X10^3/uL; Basophil% 0.4 % (0-1); Eosinophil# 0.14 X10^3/uL; Eosinophils% 1.9 % (0-5); Hematocrit 37.1 % (40-54); Hemoglobin 12.3 g/dL (13.0-16.5); Lymphocyte # 1.11 X10^3/ul (4.0); Lymphocyte % 15.1 % (19-41); Mean Corp Hgb Conc 33.2 g/dL (32-36); Mean Corpuscular Hgb 30.4 pg (27.0-32.0); Mean Corpuscular Volume 91.8 fL (80-94); Mean Platelet Vol. 10.2 fl (6.2-12.0); Monocyte# 0.89 X10^3/uL; Monocyte% 12.1 % (0-10); NRBC Flagged by Analyzer 0 % (0-5); Neutrophil # 5.17 X10^3/uL (2.7-7.7); Neutrophil % 70.4 % (47-70); POSITIVE COUNT YES; Platelet Count 136 K/mm3 (150-450); RBC Distribution Width CV 13.4 % (11.6-14.6); RBC Distribution Width SD 45.5 fl (35.1-43.9); Red Blood Count 4.04 M/mm3 (4.6-6.2); White Blood Count 7.4 K/mm3 (4.4-11.0)
[2020-02-22 04:36] LABS: International Normalized Ratio 1.2; Prothrombin Time (Protime)PT. 14.3 SECONDS (11.7-14.9)
[2020-02-22 04:42] LABS: AST(SGOT) 27 U/L (15-37); Alanine Aminotransfer ALT/SGPT 30 U/L (16-61); Albumin, Serum 3.1 g/dL (3.2-5.0); Alkaline Phosphatase 53 U/L (45-117); Anion Gap 6 (5-15); BUN 16 mg/dL (7-18); BUN/Creat Ratio 17.3 RATIO (10-20); Calcium,Total 8.2 mg/dL (8.5-10.1); Chloride 104 mmol/L (98-107); Creatinine, Serum 0.92 mg/dL (0.70-1.30); EST Glomerular Filtration Rate 84 mL/min (>60); Est Glom Filt Rate - Afr Amer 102 mL/min (>60); Estimated Creatinine Clearance 71.62 ml/min; Glucose 122 mg/dL (74-106); Potassium 3.8 mmol/L (3.5-5.1); Protein, Total 6.1 g/dL (6.4-8.2); Sodium Level 137 mmol/L (136-145)
[2020-02-22] MEDS: 0.9% Normal Saline 1,000 ML 100 ML IV (05:31)
--- NOTE | 2020-02-22 05:55 | EKG12_ITS ---
Test Reason : AM EKG Blood Pressure : / mmHG Vent. Rate : 057 BPM Atrial Rate : 057 BPM P-R Int : 168 ms QRS Dur : 092 ms QT Int : 434 ms P-R-T Axes : 000 -26 -25 degrees QTc Int : 422 ms Sinus bradycardia with sinus arrhythmia with occasional Premature ventricular complexes Inferior infarct , age undetermined Abnormal ECG When compared with ECG of 20-FEB-2020 22:16, MANUAL COMPARISON REQUIRED, DATA IS UNCONFIRMED Confirmed by LUDY MONZON, RICHARD ([id number]), makeup editor JESSY CONTRERAS ([id number]) on 02/24/2020 11:24:44 AM Referred By: JAYA Confirmed By:MARCIA BOSTON MD
[2020-02-22] MEDS: Nitroglycerin Infusion 250 ML 12 MG CONT INF (06:27)
--- NOTE | 2020-02-22 07:36 | PCM.PN.HOSP ---
Patient Problems: Active and Suspected Problems Unstable angina (Acute) Hypertensive urgency (Acute) Hypokalemia (Acute) Hyperglycemia (Acute) CAD (coronary artery disease) (Acute) Reason for Visit: Follow-up on acute non-STEMI Subjective: Patient was seen and examined. He complains of slight headache. Remains on nitro drip. Denies any chest pain or palpitations or dizziness. No acute events overnight.He will be going for cardiac cath today. Vitals/I&O's: Vital Signs Temp Pulse Resp BP Pulse Ox 97.9 F 56 L 18 140/77 H 97 02/22/20 00:00 02/22/20 07:22 02/22/20 06:59 02/22/20 06:59 02/22/20 06:59 Oxygen Flow Rate (L/min) 2 Oxygen Delivery Method CPAP Weight: 118.5 kg Body Mass Index (BMI) 36.3 Intake and Output for Last 24 Hours 02/20/20 02/21/20 02/22/20 23:59 23:59 23:59 Intake Total 2901.22 / 3101.22 1418.54 / 1418.54 Output Total 650 / 850 625 / 625 Balance 2251.22 / 2251.22 793.54 / 793.54 General: Alert, Oriented x3, Cooperative, No apparent distress, - - obese HEENT: Atraumatic, PERRLA, EOMI, Normocephalic Oral: Moist Mucosa Neck: Supple Lungs: Clear to auscultation, Normal air movement Cardiovascular: Regular rate, Regular Rhythm, Normal S1, Normal S2, No murmurs Abdomen: Bowel Sounds Present, Soft, Non Tender, Non-Distended, No Hepato-splenomegaly Extremities: No edema Skin: No rashes, No breakdown Musculoskeletal: No Tenderness to Palpation of Joints or Extremities Lymphatic: No Cervical, Supraclavicular, or Inguinal Adenopathy Neurological: Cranial nerves II-XII grossly intact, Neuro grossly intact Psych/Mental Status: Normal Affect, Appropriate Laboratory Results 02/21/20 13:25: APTT 65.0 H 02/21/20 19:30: APTT 55.5 H 02/22/20 01:25: APTT 52.6 H 02/22/20 04:15: Troponin I 1.050 H* 02/22/20 04:15: WBC 7.4, RBC 4.04 L, Hgb 12.3 L, Hct 37.1 L, MCV 91.8, MCH 30.4, MCHC 33.2, RDW Std Deviation 45.5 H, RDW Coeff of Tc 13.4, Plt Count 136 L, MPV 10.2, Immature Gran % (Auto) 0.100, Neut % (Auto) 70.4 H, Lymph % (Auto) 15.1 L, [place] % (Auto) 12.1 H, Eos % (Auto) 1.9, Baso % (Auto) 0.4, Absolute Neuts (auto) 5.2, Absolute Lymphs (auto) 1.11, Nucleated RBC % 0 02/22/20 04:15: PT 14.3, INR 1.2, APTT 65.0 H 02/22/20 04:15: Sodium 137, Potassium 3.8, Chloride 104, Carbon Dioxide 27.0, Anion Gap 6, BUN 16, Creatinine 0.92, Estim Creat Clear Calc 71.62, Est GFR (MDRD) Af Amer 102, Est GFR (MDRD) Non-Af 84, BUN/Creatinine Ratio 17.3, Glucose 122 H, Calcium 8.2 L, Total Bilirubin 0.40, AST 27, ALT 30, Alkaline Phosphatase 53, Total Protein 6.1 L, Albumin 3.1 L, Globulin 3.0, Albumin/Globulin Ratio 1.0 Current Medications Acetaminophen (Tylenol) 650 mg PO Q6H PRN PRN PRN Reason: Pain Score 1-10/Temp > 100.7 F Al Hydroxide/Mg Hydroxide (Mylanta Ii) 30 ml PO Q6H PRN PRN PRN Reason: Gastric Burning Albuterol Sulfate (Ventolin Aerosols) 2.5 mg INHALATION Q2H PRN PRN PRN Reason: Dyspnea, wheezing Aspirin (Aspirin, Baby) 81 mg PO DAILY@0800 [facility] Last Admin: 02/21/20 08:18 Dose: 81 mg Documented by: Atorvastatin Calcium (Lipitor) 80 mg PO QHS [facility] Last Admin: 02/21/20 21:21 Dose: 80 mg Documented by: Carvedilol (Coreg) 3.125 mg PO BID [facility] Last Admin: 02/21/20 21:21 Dose: 3.125 mg Documented by: Famotidine (Pepcid) 20 mg PO BID [facility] Last Admin: 02/21/20 21:21 Dose: 20 mg Documented by: Fluoxetine HCl (Prozac) 40 mg PO DAILY [facility] Last Admin: 02/21/20 09:33 Dose: 40 mg Documented by: Guaifenesin (Robitussin) 10 ml PO Q4H PRN PRN PRN Reason: COUGH Heparin Sodium (Porcine) (Heparin Na) 0 unit IV UD PRN; Protocol PRN Reason: dose adjustment Last Admin: 02/22/20 02:15 Dose: 1,000 unit Documented by: Hydrochlorothiazide () 12.5 mg PO DAILY [facility] Last Admin: 02/21/20 09:32 Dose: 12.5 mg Documented by: Heparin Sodium/Dextrose () 25,000 units in 250 mls @ 16 mls/hr IV .[id number] [facility]; Protocol Last Admin: 02/22/20 02:16 Dose: 1,400 units/hr, 14 mls/hr Documented by: Nitroglycerin/Dextrose () 250 mls @ 3 mls/hr CONT INF .[id number] [facility]; Protocol Last Admin: 02/22/20 06:27 Dose: 20 mcg/min, 12 mls/hr Documented by: Sodium Chloride () 1,000 mls @ 100 mls/hr IV .Q10H [facility] Last Admin: 02/22/20 05:31 Dose: 100 mls/hr Documented by: Sodium Chloride () 250 mls @ 15 mls/hr IV .[id number] PRN PRN Reason: Saline Flush Sodium Chloride () 250 mls @ 15 mls/hr IV .[id number] PRN PRN Reason: Additional IVPB Infusion Levothyroxine Sodium (Synthroid) 50 mcg PO DAILY@0600 [facility] Last Admin: 02/22/20 05:31 Dose: Not Given Documented by: Losartan Potassium (Cozaar) 100 mg PO DAILY [facility] Last Admin: 02/21/20 09:32 Dose: 100 mg Documented by: Magnesium Hydroxide (Milk Of Magnesia) 30 ml PO DAILY PRN PRN PRN Reason: Constipation Melatonin (Melatonin) 3 mg PO QHS PRN PRN PRN Reason: INSOMNIA Last Admin: 02/21/20 21:21 Dose: 3 mg Documented by: Morphine Sulfate () 2 mg IV Q3H PRN PRN PRN Reason: Pain Score 6-10 Ondansetron HCl (Zofran) 4 mg IV Q8H PRN PRN PRN Reason: NAUSEA/VOMITING Oxycodone HCl (Oxyir) 5 mg PO Q4H PRN PRN PRN Reason: Pain Score 4-5 Prochlorperazine Edisylate (Compazine Iv) 5 mg IV Q4H PRN PRN PRN Reason: Breakthrough Nausea/Vomiting Psyllium Hydrophilic Mucilloid (Metamucil) 1 packet PO DAILY PRN PRN PRN Reason: Constipation Senna/Docusate Sodium (Senokot-S, Ghazala-Colace) 2 tablet PO BID PRN PRN PRN Reason: Constipation Sodium Chloride () 10 - 40 ml IV UD PRN PRN Reason: SALINE FLUSH Last Admin: 02/21/20 18:27 Dose: 10 ml Documented by: Throat Lozenges (Cepacol Sore Throat Lozenge) 1 lozenge MUCOUS MEM Q2H PRN PRN PRN Reason: SORE THROAT STROKE Vital Signs/Narrative: Vital Signs Pulse Resp BP BP Pulse Ox 02/22/20 07:22 56 L 02/22/20 06:59 57 L 18 140/77 H 97 02/22/20 06:27 63 147/76 H 02/22/20 06:00 61 16 147/76 H 98 02/22/20 05:00 56 L 17 141/65 H 97 02/22/20 04:00 60 16 140/67 H 98 Medical Necessity - Tobacco Use Smoking Status: Never smoker Tobacco Use: Non-smoker Assessment/Plan All Active Problems Unstable angina (Acute) Hypertensive urgency (Acute) Hypokalemia (Acute) Hyperglycemia (Acute) CAD (coronary artery disease) (Acute) 1. Acute NSTEMI, patient's vitals have been stable, troponin peaked at 3.52 Going for cardiac cath this morning, continue on heparin drip, aspirin, statin, carvedilol We will follow-up on cardiology recommendations 2. Hypertension, fairly uncontrolled, on continue on carvedilol, hydrochlorothiazide, losartan 3. Hyperlipidemia, continue home high-dose atorvastatin 4. Hypothyroidism, continue on synthroid 5. Anxiety/depression, stable, continue on Prozac 6. Obesity/DEEPAK, continue on BiPAP 7. DVT prophylaxis?on heparin drip Inpatient E&M: [id number] [facility]
--- NOTE | 2020-02-22 08:23 | NURSING ---
Echo in progress
[2020-02-22 08:36] LABS: Partial Thromboplast Time 64.4 Seconds (24.1-36.2)
[2020-02-22] MEDS: Carvedilol 3.125 MG TABLET PO (09:48)
[2020-02-22] MEDS: hydroCHLOROthiazide 12.5mg 12.5 MG PO (09:48)
[2020-02-22] MEDS: Losartan Potassium 100 MG Tablet PO (09:48)
[2020-02-22] MEDS: Aspirin 81 MG TAB.CHEW PO (09:48)
[2020-02-22] MEDS: Famotidine 20 MG Tablet PO (10:39)
[2020-02-22] MEDS: FLUoxetine 20 MG Capsule 40 MG PO (10:39)
[2020-02-22] MEDS: DiphenhydrAMINE 50 MG/ML Syringe IV (10:39)
[2020-02-22] MEDS: 0.9% Saline Lock 10 ML Syringe IV (10:39)
--- NOTE | 2020-02-22 10:45 | CASEMGMT ---
RN CM Face to Face with patient for initial transition planning/care coordination assessment. RN CM introduced self and role at [facility]. Patient lying in bed, alert and oriented. Patient willing to participate in assessment and is able to answer all questions appropriately. Care providers, pharmacy, and demographics verified. Patient wishes to discharge home, will monitor how patient progresses with therapy for possible HHC at discharge. Patient states he has no further needs or concerns at this time. CM to follow for discharge planning needs that may arise. PCP: Elsy Specialists: lizeth Dobbs Preferred Pharmacy: [facility] Insurance: [facility], MMO Prescription Benefit: yes Living Will/HPOA: yes, leif Kathy Lindsay LNOK: daughter Living Arrangements: Patient lives alone in a Condo with no steps to enter the home. Patient states he is independent at home. Transportation: Self, Friend DME/HHC: Patient states he has a cane, walker, Bipap at home. Patient denies previous HHC. Disposition Plan: Patient to discharge home with family support and follow-up plans in place. Will monitor need for HHC. [employer], RN, CM
--- NOTE | 2020-02-22 10:58 | PCM.PN.CARD ---
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 2 days ago patient developed rest pain with severe diaphoresis and shortness of breath. The pain was described as left upper shoulder pain. Since admission, the chest pain and shoulder pain have dissipated and there was some residual pain on the left side. Enzymes were elevated. On admission EKG showed ST depression in the anterolateral lead which was reversible. Patient is known to have hypertension and hyperlipidemia. He is a non-smoker and drinks occasionally. Objective: Vital Signs Temp Pulse Resp BP Pulse Ox 97.9 F 66 16 150/69 H 97 02/22/20 09:58 02/22/20 10:00 02/22/20 10:00 02/22/20 10:00 02/22/20 10:00 Oxygen Flow Rate (L/min) 2 Oxygen Delivery Method Room Air Weight: 261 lb 3.964 oz Body Mass Index (BMI) 36.3 Intake and Output for Last 24 Hours 02/20/20 02/21/20 02/22/20 23:59 23:59 23:59 Intake Total 2901.22 / 3101.22 1799.34 / 1799.34 Output Total 650 / 850 625 / 625 Balance 2251.22 / 2251.22 1174.34 / 1174.34 General: Healthy Appearing, Obese HEENT: Atraumatic Neck: Supple Lungs: Clear to auscultation Cardiovascular: Regular Rhythm, Normal S1, Normal S2, No Murmurs, No Rubs, No Gallops Vascular: No Carotid Bruits, Normal Femoral Pulses, Normal Radial Pulses, Normal Dorsalis Pedal Pulse, Normal Posterior Tibial Pulses Abdomen: Bowel Sounds Present, Soft, Non Tender, No HSM, No Organomegaly 02/21/20 13:25: APTT 65.0 H 02/21/20 19:30: APTT 55.5 H 02/22/20 01:25: APTT 52.6 H 02/22/20 04:15: Troponin I 1.050 H* 02/22/20 04:15: WBC 7.4, RBC 4.04 L, Hgb 12.3 L, Hct 37.1 L, MCV 91.8, MCH 30.4, MCHC 33.2, Plt Count 136 L, MPV 10.2, Immature Gran % (Auto) 0.100, Neut % (Auto) 70.4 H, Lymph % (Auto) 15.1 L, [place] % (Auto) 12.1 H, Eos % (Auto) 1.9, Baso % (Auto) 0.4, Absolute Neuts (auto) 5.2, Nucleated RBC % 0 02/22/20 04:15: PT 14.3, INR 1.2, APTT 65.0 H 02/22/20 04:15: Sodium 137, Potassium 3.8, Chloride 104, Carbon Dioxide 27.0, Anion Gap 6, BUN 16, Creatinine 0.92, Est GFR (MDRD) Af Amer 102, Est GFR (MDRD) Non-Af 84, BUN/Creatinine Ratio 17.3, Glucose 122 H, Calcium 8.2 L, Total Bilirubin 0.40 02/22/20 08:15: APTT 64.4 H Rhythm: EKG: ECHO: Stress Test: Cardiac Cath: PCI: CT Surgery: Holter monitor: EPS: PPM: CXR: Chest CT Scan: Medical Necessity - Tobacco Use Smoking Status: Never smoker Tobacco Use: Non-smoker Assessment/Plan #1 non-STEMI, patient will proceed with cardiac catheterization. The risk and benefit have been explained to the patient, patient is willing to proceed and given consent. Because of the questionable dye allergy, IV Solu-Medrol, IV Benadryl will be given. Patient has been taking Pepcid for last 2 days.
--- NOTE | 2020-02-22 12:39 | CL.D_ITS ---
Patient Name: AVEL SANFORD Study Date: 02/22/2020 Performing: Solange Shelton MD Ht: 71 inches 180 cm : 1940 Wt: 262.7 lbs 119 kg Age: 79 Gender: male BSA: 2.36 PROCEDURE(S) PERFORMED [id number] CLINICAL PROFILE AND INDICATIONS Indications: ACS <= 24 hrs Heart Failure: None Stress/Imaging Stress/Image Study Performed: No CAD Presentations: Non-STEMI. Symptom onset Date/Time: Time Not Available CONCLUSIONS Multivessel CAD as described RECOMMENDATIONS Refer for CABG DESCRIPTION OF PROCEDURE The patient arrived to the procedure lab. The risks and benefits of the procedure as well as a full d escription of our services here and current unavailability of surgical backup were fully explained to the patient and/or their significant other prior to the catheterization. The Timeout was completed, verifying the correct patient and procedure. The patient's procedural site was prepped and draped in the usual fashion. Local anesthetic was given subcutaneously to right radial region with Lidocaine 2% . Using a modified Seldinger technique, arterial access was obtained via the right radial artery, a 6 Fr sheath was inserted. Left Coronary Artery selective angiography was performed in multiple views u sing a 5 Fr. JL3.5 catheter. Right Coronary Artery selective angiography was then performed in multip le views using a 5 Fr. JR 4 catheter.The arterial sheath was pulled and a TR Band was applied for hem ostasis. 15cc of air applied CORONARY ANGIOGRAPHY DOMINANCE: Co- Dominant LEFT MAIN: No significant disease noted LEFT ANTERIOR DESCENDING ARTERY: MID LAD: 100 % Stenosis. Mid and distal LAD fill via collaterals CIRCUMFLEX ARTERY: PROX CIRC: 95 % Stenosis RAMUS: 90 % Stenosis RIGHT CORONARY ARTERY: MID RCA: 90 % Stenosis COMPLICATIONS No Complications PROCEDURE MEDICATIONS Fentanyl 50 mcg IV Oxygen: 2 L/min via nasal cannula Heparin 25,000u / 250ml D5W @ 0 u/hr discontinued in ICU 02/22/2020 11:22:57 Heparin given IA 02/22/2020 11:46:06 Verapamil 2.5mg, Ntg 100mcgs, 3000 units of Heparin given IA 02/22/2020 11:46:06 SUMMARY OF HEMODYNAMIC DATA Time AIR REST ECG 11:19:39 AO 138/69 (98) SA 11:50:38 Signed By Solange Shelton MD On 02/22/2020 12:38:57 Solange Shelton MD
--- NOTE | 2020-02-22 13:27 | DCINST_ITS ---
- Discharge Diagnoses Current Active Problems: Current Active and Chronic Problems Unstable angina (Acute) Hypertensive urgency (Acute) Hypokalemia (Acute) Hyperglycemia (Acute) HTN (hypertension) (Chronic) HLD (hyperlipidemia) (Chronic) DEEPAK (obstructive sleep apnea) (Chronic) Anxiety and depression (Chronic) Obesity (BMI 30.0-34.9) (Chronic) CAD (coronary artery disease) (Acute) Reason(s) for Visit for Discharge Instructions: Chest pain Allergies/Adverse Reactions: Allergies No Known Allergies Allergy (Verified 01/16/19 11:21) Medications to take at Discharge Aspirin [Aspirin, Baby] 81 mg PO DAILY@0800 01/16/19 Atorvastatin Calcium 20 mg PO DAILY 01/16/19 Cholecalciferol (Vitamin D3) [Vitamin D] 50,000 unit PO QWEEK 01/16/19 Fluoxetine [Prozac] 40 mg PO DAILY 01/16/19 Levothyroxine [Synthroid] 50 mcg PO DAILY 01/16/19 Valsartan/Hydrochlorothiazide [Valsartan-Hctz 320-12.5 mg Tab] 1 ea PO DAILY 01/16/19 Primary Care Physician: Pirya Chin MD [Primary Care Provider] - Test Results: Test results from this visit will be discussed in further detail at your follow- up appointment, if applicable. Proposed Discharge Date: 02/22/20
--- NOTE | 2020-02-22 13:28 | DS.PCM_ITS ---
Discharge Date and Diagnosis - Problem List Patient Problems: Active and Suspected Problems Hypomagnesemia (Acute) Hypertensive emergency (Acute) Acute non-ST elevation myocardial infarction (NSTEMI) (Acute) Hypokalemia (Acute) CAD (coronary artery disease) (Acute) Date of Admission: 02/20/20 Date of Discharge: 02/22/20 - Primary Discharge Diagnosis Acute Problems: Active Problems Acute NSTEMI Hypertensive emergency, POA Hypokalemia Hypomagnesemia - Secondary Discharge Diagnosis Chronic Problems: Chronic Problems HTN (hypertension) (Chronic) HLD (hyperlipidemia) (Chronic) DEEPAK (obstructive sleep apnea) (Chronic) Anxiety and depression (Chronic) Obesity (BMI 30.0-34.9) (Chronic) Hospital Course and Treatment Imaging Results: Clinical Impression(s) from Imaging Studies Chest X-Ray 02/20/20 22:08 IMPRESSION: Normal x-ray examination of the chest. Electronically Signed: Sandor Tejada MD at 23:19 EDT , Service support , Cardiology Operations: None Procedures: Cardiac catheterization, Transthoracic echo Summary of Care Provided: The patient is a 79 year old M with past medical history of hypertension, hyperlipidemia, hypothyroidism, anxiety/depression, DEEPAK on BiPAP who presented with sudden onset of stabbing, substernal/left-sided chest pain that started 30 minutes prior to arrival. Patient admitting vitals showed elevated blood pressure of 213/101, heart rate 82. Troponins of 154. Potassium was 3.3, magnesium is 1.8, TSH 0.98. Troponins were negative. EKG showed ST segment elevation in aVR with ST segment depression in 1, aVL, V3 to V6. He was started on nitroglycerin drip after the emergency department discussed with cardiology. Patient was admitted with diagnosis of unstable angina, monitored in the ICU. His troponin began to trend up and peaked at 3.5. Patient was kept on heparin drip as well as aspirin, statin, beta-[place]. Had 2D echo done that showed EF of 60%, trivial aortic and mitral valve insufficiency, mild aortic stenosis. He underwent cardiac catheterization on 02/22/20 and findings showed multivessel disease. Patient was accepted by the [facility] for CABG. Patient Problems: Active and Suspected Problems Hypomagnesemia (Acute) Hypertensive emergency (Acute) Acute non-ST elevation myocardial infarction (NSTEMI) (Acute) Hypokalemia (Acute) CAD (coronary artery disease) (Acute) Subjective: See progress note of the day Objective: See progress note on the day - Physical Exam Vitals/I&O's: Vital Signs Temp Pulse Resp BP Pulse Ox 98.0 F 58 L 20 H 170/72 H 93 02/22/20 12:30 02/22/20 13:00 02/22/20 13:00 02/22/20 13:00 02/22/20 13:00 Oxygen Flow Rate (L/min) 2 Oxygen Delivery Method Room Air Weight: 118.5 kg Body Mass Index (BMI) 36.3 Intake and Output for Last 24 Hours 02/20/20 02/21/20 02/22/20 23:59 23:59 23:59 Intake Total 2901.22 / 3101.22 2099.34 / 2099.34 Output Total 650 / 850 975 / 975 Balance 2251.22 / 2251.22 1124.34 / 1124.34 Laboratory Results 02/21/20 13:25: APTT 65.0 H 02/21/20 19:30: APTT 55.5 H 02/22/20 01:25: APTT 52.6 H 02/22/20 04:15: Troponin I 1.050 H* 02/22/20 04:15: WBC 7.4, RBC 4.04 L, Hgb 12.3 L, Hct 37.1 L, MCV 91.8, MCH 30.4, MCHC 33.2, RDW Std Deviation 45.5 H, RDW Coeff of Tc 13.4, Plt Count 136 L, MPV 10.2, Immature Gran % (Auto) 0.100, Neut % (Auto) 70.4 H, Lymph % (Auto) 15.1 L, [place] % (Auto) 12.1 H, Eos % (Auto) 1.9, Baso % (Auto) 0.4, Absolute Neuts (auto) 5.2, Absolute Lymphs (auto) 1.11, Nucleated RBC % 0 02/22/20 04:15: PT 14.3, INR 1.2, APTT 65.0 H 02/22/20 04:15: Sodium 137, Potassium 3.8, Chloride 104, Carbon Dioxide 27.0, Anion Gap 6, BUN 16, Creatinine 0.92, Estim Creat Clear Calc 71.62, Est GFR (MDRD) Af Amer 102, Est GFR (MDRD) Non-Af 84, BUN/Creatinine Ratio 17.3, Glucose 122 H, Calcium 8.2 L, Total Bilirubin 0.40, AST 27, ALT 30, Alkaline Phosphatase 53, Total Protein 6.1 L, Albumin 3.1 L, Globulin 3.0, Albumin/Globulin Ratio 1.0 02/22/20 08:15: APTT 64.4 H Current Medications Acetaminophen (Tylenol) 650 mg PO Q6H PRN PRN PRN Reason: Pain Score 1-10/Temp > 100.7 F Al Hydroxide/Mg Hydroxide (Mylanta Ii) 30 ml PO Q6H PRN PRN PRN Reason: Gastric Burning Albuterol Sulfate (Ventolin Aerosols) 2.5 mg INHALATION Q2H PRN PRN PRN Reason: Dyspnea, wheezing Aspirin (Aspirin, Baby) 81 mg PO DAILY@0800 [facility] Last Admin: 02/22/20 09:48 Dose: 81 mg Documented by: Atorvastatin Calcium (Lipitor) 80 mg PO QHS [facility] Last Admin: 02/21/20 21:21 Dose: 80 mg Documented by: Carvedilol (Coreg) 3.125 mg PO BID [facility] Last Admin: 02/22/20 09:48 Dose: 3.125 mg Documented by: Famotidine (Pepcid) 20 mg PO BID [facility] Last Admin: 02/22/20 10:39 Dose: 20 mg Documented by: Fluoxetine HCl (Prozac) 40 mg PO DAILY [facility] Last Admin: 02/22/20 10:39 Dose: 40 mg Documented by: Guaifenesin (Robitussin) 10 ml PO Q4H PRN PRN PRN Reason: COUGH Heparin Sodium (Porcine) (Heparin Na) 0 unit IV UD PRN; Protocol PRN Reason: dose adjustment Last Admin: 02/22/20 02:15 Dose: 1,000 unit Documented by: Hydrochlorothiazide () 12.5 mg PO DAILY [facility] Last Admin: 02/22/20 09:48 Dose: 12.5 mg Documented by: Sodium Chloride () 1,000 mls @ 100 mls/hr IV .Q10H [facility] Last Infusion: 02/22/20 12:30 Dose: 60 mls/hr Documented by: Sodium Chloride () 250 mls @ 15 mls/hr IV .[id number] PRN PRN Reason: Saline Flush Sodium Chloride () 250 mls @ 15 mls/hr IV .[id number] PRN PRN Reason: Additional IVPB Infusion Sodium Chloride () 1,000 mls @ 60 mls/hr IV .[id number] [facility] Stop: 02/22/20 18:24 Last Admin: 02/22/20 13:00 Dose: Not Given Documented by: Levothyroxine Sodium (Synthroid) 50 mcg PO DAILY@0600 [facility] Last Admin: 02/22/20 05:31 Dose: Not Given Documented by: Losartan Potassium (Cozaar) 100 mg PO DAILY [facility] Last Admin: 02/22/20 09:48 Dose: 100 mg Documented by: Magnesium Hydroxide (Milk Of Magnesia) 30 ml PO DAILY PRN PRN PRN Reason: Constipation Melatonin (Melatonin) 3 mg PO QHS PRN PRN PRN Reason: INSOMNIA Last Admin: 02/21/20 21:21 Dose: 3 mg Documented by: Morphine Sulfate () 2 mg IV Q3H PRN PRN PRN Reason: Pain Score 6-10 Ondansetron HCl (Zofran) 4 mg IV Q8H PRN PRN PRN Reason: NAUSEA/VOMITING Oxycodone HCl (Oxyir) 5 mg PO Q4H PRN PRN PRN Reason: Pain Score 4-5 Prochlorperazine Edisylate (Compazine Iv) 5 mg IV Q4H PRN PRN PRN Reason: Breakthrough Nausea/Vomiting Psyllium Hydrophilic Mucilloid (Metamucil) 1 packet PO DAILY PRN PRN PRN Reason: Constipation Senna/Docusate Sodium (Senokot-S, Ghazala-Colace) 2 tablet PO BID PRN PRN PRN Reason: Constipation Sodium Chloride () 10 - 40 ml IV UD PRN PRN Reason: SALINE FLUSH Last Admin: 02/22/20 10:39 Dose: 10 ml Documented by: Throat Lozenges (Cepacol Sore Throat Lozenge) 1 lozenge MUCOUS MEM Q2H PRN PRN PRN Reason: SORE THROAT Discharge Diet: Low fat/ Low Cholesterol, 2000 mg Sodium Diet Home Medications: Medications to take at Discharge Aspirin [Aspirin, Baby] 81 mg PO DAILY@0800 01/16/19 Atorvastatin Calcium 20 mg PO DAILY 01/16/19 Cholecalciferol (Vitamin D3) [Vitamin D] 50,000 unit PO QWEEK 01/16/19 Fluoxetine [Prozac] 40 mg PO DAILY 01/16/19 Levothyroxine [Synthroid] 50 mcg PO DAILY 01/16/19 Valsartan/Hydrochlorothiazide [Valsartan-Hctz 320-12.5 mg Tab] 1 ea PO DAILY 01/16/19 Primary Care Physician: Priya Chin MD [Primary Care Provider] - Disposition: Acute care Hospital Minutes spent on discharge:: 45 Patient Condition:: Stable Medical Necessity - Tobacco Use Smoking Status: Never smoker Tobacco Use: Non-smoker Meaningful Use Info Meaningful Use Diagnoses (Choose all that apply): AMI - AMI/Post PCI/Angioplasty Aspirin given w/in 24hrs of arrival?: Yes ASA at discharge?: Yes Antiplatelet Therapy at Discharge:: Yes Statins at discharge?: Yes Raymond/ARB at discharge?: No Reason Raymond/ARB not ordered:: Not indicated Beta [place] at discharge?: Yes Done w/ Acute [place] measure.: Yes Documented LVEF (%): 60 Inpatient E&M: [id number] Disch Hosp
[2020-02-22] MEDS: Morphine 2 MG/ML Syringe IV (14:03)
[2020-02-22] MEDS: Carvedilol 12.5 MG Tablet PO (14:03)
== END 2020-02-22 14:22 | disposition short-term general hospital (02) | DRG 281 ==
LOC: ED 22:27 → ICU 02-21 00:15
PROVIDERS: Internal Medicine Interventional Cardiology; Admitting Provider Family Medicine; Emergency Provider Emergency Medicine; PCP Internal Medicine; Visit Provider Internal Medicine
DX: I21.4 Non-ST elevation (NSTEMI) myocardial infarction (principal); I16.1 Hypertensive emergency; I25.110 Atherosclerotic heart disease of native coronary artery with unstable angina pectoris; E87.6 Hypokalemia; E83.42 Hypomagnesemia; I10 Essential (primary) hypertension; E78.5 Hyperlipidemia, unspecified; E66.9 Obesity, unspecified; G47.33 Obstructive sleep apnea (adult) (pediatric); Z79.899 Other long term (current) drug therapy; Z68.36 Body mass index [BMI] 36.0-36.9, adult; R73.9 Hyperglycemia, unspecified; E03.9 Hypothyroidism, unspecified; G89.29 Other chronic pain; M47.812 Spondylosis without myelopathy or radiculopathy, cervical region; F41.9 Anxiety disorder, unspecified; F32.9 Major depressive disorder, single episode, unspecified
CPT/HCPCS: 71045; 80048; 80053; 80061; 83036; 83735; 84443; 84484; 85025; 85610; 85730; 93005; 93306; 93454; 94002; 99152; 99153; 99251; 99284; J7030; Q9957; Q9967; A4216; C1769; C1894; C8929; G0463; J2405

== ENCOUNTER 2020-03-08 20:18 | Emergency (ER) | payer MEDICARE, OTHER, SELFPAY ==
[2020-02-21 00:51] VITALS: BMI 36.3
[2020-03-08 20:20] VITALS: BP 130/104; PULSE 70; RESP 18; TEMP 37; O2SAT 95; BMI 35.6
--- NOTE | 2020-03-08 20:26 | RAD_ITS ---
STUDY: X-RAY - RIGHT SHOULDER REASON FOR EXAM: Male, 80 years old. On to right upper arm and chest. History of bypass surgery 12 days ago. TECHNIQUE: 4 view(s) of the shoulder. COMPARISON: None. FINDINGS: There is mild degenerative arthrosis of the glenohumeral articulation. There is degenerative arthrosis of the acromioclavicular joint without inferior osseous spur formation. Normal acromion. There is no acute fracture, dislocation or destructive osseous pathology. Normal humeral head and visualized proximal humerus. The soft tissue structures are unremarkable. Normal visualized pulmonary apex. RAD/Shoulder min 2 Views IMPRESSION: Degenerative changes of the right shoulder without visualized fracture or dislocation Electronically Signed: Cl Lancaster DO at 21:06 EDT Tel [phone], Service support ,
--- NOTE | 2020-03-08 20:28 | ED.DCSUM_ITS ---
History of Present Illness Chief Complaint: General Illness Informant: Patient Onset: Today Context: Sudden Onset Timing: Continuous Current Severity: Mild Maximum Severity: Mild Narrative: The patient is a 80-year-old male that presents to the emergency department with injury. Patient is recently status post CABG. He had his operation on the 18 of this month. He was recently discharged and has been at home. He states that today, he was trying to put on his slippers. He states he was able to get one on, and try to get on the other. He states that he lost his balance and fell. He struck his right shoulder and right chest against an end table. He did not strike his head or lose consciousness. He was unable to get up, as he is not allowed to push or pull with his upper extremities. He denies shortness of breath. There was no bleeding from his chest. He states he is otherwise been doing very well in his recovery. Prior similar symptoms: No Recent Illness/Hospitalization: Yes Past Medical History - Allergies and Home Meds Allergies/Adverse Reactions: Allergies No Known Allergies Allergy (Verified 03/08/20 20:26) Primary Care Physician: Priya Chin MD [Primary Care Provider] - Prior records reviewed: Yes Past Medical History: - Surgical History: coronary bypass surgery - Coronary vascular disease, h ypertension, hyperlipidemia Smoking Status: Never smoker - Family History Maternal Family History: Reports: High Cholesterol, Heart Disease, Hypertension, - - Patient notes a significant maternal family history of heart disease, mother with initial bypass surgery at age 72 and eventually requiring an additional bypass cardiac surgery. Paternal Family History: Reports: High Cholesterol, Heart Disease, Hypertension, - - Patient notes a significant paternal family history of heart disease, father with initial bypass surgery at age 65 and eventually requiring an additional bypass cardiac surgery. Sibling Family History: Reports: High Cholesterol, Heart Disease, Hypertension, - - Patient notes brother with a significant heart disease history with initial heart attack and bypass surgery at age 55. Review of Systems General: Denies: Chills, Fever, Sweats Eyes: Denies: Visual changes - bilaterally, Diplopia ENT: Denies: Rhinorrhea, Sore throat Cardiovascular: Denies: Chest pain, Palpitations Respiratory: Denies: Dyspnea, Cough, Dyspnea on exertion Gastrointestinal: Denies: Abdominal pain, Nausea, Vomiting, Diarrhea, Melena, Hematochezia Genitourinary: Denies: Dysuria, Hematuria, Frequency Musculoskeletal: Denies: Back pain, Extremity Pain Skin: Denies: Rash, Wounds Neurological: Denies: Headache, Weakness, Numbness Physical Exam Vital Signs/Narrative: Vital Signs Temp Pulse Resp BP Pulse Ox 03/08/20 20:20 98.6 F 70 18 130/104 H 95 Inital Vital Signs reviewed: Yes General: Well nourished, Well developed, No Acute Distress Head: Normocephalic, Atraumatic Eyes: Perrl, EOMI ENT: Moist mucous membranes, No rhinorrhea Neck: Supple, Nontender Cardiovascular: Regular rate, Regular rhythm, No murmurs Respiratory: No distress, CTA bilaterally, Chest nontender, - - Patient's incision is clean, dry, and intact. There is no evidence of dehiscence. His chest wall has some mild ecchymosis without step-off. There is no crepitus. Abdomen: Soft, Nontender, Nondistended, Normal bowel sounds Back: Nontender, Normal Inspection Extremities: Nontender, No edema Skin: Normal color, No rash Neurological: Alert, Oriented x3, Cranial nerves II-XII grossly intact, Normal Strength, Normal Sensation Psychological: Normal affect, Normal Mood Diagnostic/Tx/Re-eval Clinical Impression(s) from Imaging Studies Shoulder X-Ray 03/08/20 20:26 IMPRESSION: Degenerative changes of the right shoulder without visualized fracture or dislocation Electronically Signed: Cl Lancaster DO at 21:06 EDT Tel [phone], Service support , Chest X-Ray 03/08/20 20:40 IMPRESSION: 1. No evidence of acute traumatic injury of the chest. 2. Cardiomegaly with evidence of median sternotomy. There is no acute pulmonary disease. Electronically Signed: Cl Lancaster DO at 21:08 EDT Tel [phone], Service support , - Medical Decision Making Patient presents with fall after having recent bypass surgery. He really has no significant chest tenderness. His incision is intact. There is no evidence of dehiscence. His abdomen is soft and nontender. I did obtain plain films of the chest and of the shoulder. Both were unremarkable. The patient is resting comfortably. At this point, I do not suspect dangerous injury. I do feel that he safe for discharge and continue his follow-up. He is comfortable with this plan of care. Impression 1. Chest contusion 2. Recent CABG ED Disposition - Plan for ED Patient: Instructions: ED CHEST CONTUSION Referrals: Priya Chin MD [Primary Care Provider] -
--- NOTE | 2020-03-08 20:40 | RAD_ITS ---
STUDY: X-RAY CHEST REASON FOR EXAM: Male, 80 years old. Fall. Struck right upper arm and chest on table. History of cardiac bypass surgery 12 days ago TECHNIQUE: Single AP portable view of the chest. 02/20/2020. COMPARISON: None. FINDINGS: The lungs are clear and expanded. There is no demonstrated pleural abnormality. Sternal cerclage wires are present from a prior sternotomy. The heart is mildly enlarged. Normal mediastinum and shant. Normal visualized pulmonary arteries. There is atherosclerotic calcification of the aortic arch with tortuosity. The thoracic spine is obscured by the mediastinum. There is degenerative osteoarthritis of the bilateral shoulders. There are no visualized rib fractures. There is no demonstrated abnormality of the visualized soft tissue structures of the upper abdomen. RAD/Chest 1 View (Portable) IMPRESSION: 1. No evidence of acute traumatic injury of the chest. 2. Cardiomegaly with evidence of median sternotomy. There is no acute pulmonary disease. Electronically Signed: lC Lancaster DO at 21:08 EDT Tel [phone], Service support ,
[2020-03-08 21:44] VITALS: BP 137/78; PULSE 68; RESP 16
== END 2020-03-08 22:05 | disposition home or self-care (01) ==
LOC: ED 21:02
PROVIDERS: Emergency Provider Emergency Medicine; PCP Internal Medicine
DX: S20.219A Contusion of unspecified front wall of thorax, initial encounter (principal); I10 Essential (primary) hypertension; E78.5 Hyperlipidemia, unspecified; W18.30XA Fall on same level, unspecified, initial encounter; Y93.89 Activity, other specified; Y92.009 Unspecified place in unspecified non-institutional (private) residence as the place of occurrence of the external cause; Y99.8 Other external cause status; Z95.1 Presence of aortocoronary bypass graft
CPT/HCPCS: 71045; 73030; 99283

== ENCOUNTER → 2020-03-31 09:59 | Outpatient (CLI) | payer MEDICARE, OTHER, SELFPAY ==
[2020-03-25 13:27] VITALS: BMI 32.9
--- NOTE | 2020-03-31 10:06 | PCM.CR.ITP ---
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 Personal Learning Style:: Audio/Visual, Written Barriers to Learning: Vision Impairment Stage of change r/t lifestyle modifications:: Action Gave educational material for:: Treating Heart Disease, Emotions & Heart Disease, Stress Management & Relaxation, Sleep Disorders & Heart Disease, How The Heart Works, What it means to have Heart Disease, How Coronary Artery Disease is Diagnosed, Heart Procedures, What Heart Medications Do, Risk Factors & Modifications, Living an Active Life, Nutrition - Education/Goals Individual Counseling: Initial Assessment: Abnormal Cholesterol Levels, High Blood Pressure, Overweight/Obesity Cardiac Rehabilitation Goals: 1. Maintain the individual as the primary focus of care. 2. To improve the patient's quality of life. 3. Identification of cardiac risk factors and provide cardiac risk factor management. 4. Enhance the psychosocial status of the patient. 5. Reconditioning enough to allow the patient to resume customary activities. 6. Control symptoms of cardiac disease Personal Goals: Initial Assessment: Improve energy level, Participate in home exercise program, Improve knowledge of cardiac disease, Improve muscle strength and endurance, Improve diet and eating habits (eat healthier), Control risk factors (learn risk factor modification), Other goal: - PLAY GOLF Scale for measuring improvement of personal goals: Enter appropriate number in Comments. 2 = Unchanged. 3 = Slightly Better. 4 = Moderate Improvement. 5 = Met my Goal - Diagnosis & Disease Process Outcomes/Goals: Pt IDs own risk factors & lifestyle modifications by Session 10, Verbalizes symptoms of angina & response by session 3., Pt independently manages Plan/Interventions: Assist Pt to ID & engage in lifestyle modification to reduce CVD risk, Instruct on individual risk factors, Review symptoms of angina & emergency actions, Review secondary diagnosis & identify educational needs. - Safety Referral to Physical Therapy: No Referral to [facility] Case Management: No Fall Risk Assessed:: Yes Assistive Devices:: None Exercise - Initial Assessment - Visit Date of Eval: 03/31/20 Session #:: 0 - PRE-CARDIAC REHAB EVAL. Mets: Pre-: >7 METS for 30 minutes by discharge - Physician Prescribed Exercise Modalities: Treadmill, Airdyne, NuStep Frequency: 3x/week for 12 weeks [36 sessions] Intensity: 60-80% of age predicted maximum heart rate reserve Current METSs:: 3.0 Target Heart Rate:: 93-120 Resting Blood Pressure: 141/72 EKG Type: SINUS BRADYCARDIA - Outcomes & Goals Goals:: Verbalizes understanding of THR, RPE & goal METS by session 6, Documents in home exercise log/reports 30 min aerobic 5 day/wk by DC, Demonstrates accurate pulse taking by DC - Intervention & Plan Exercise Program Goals: Instruct on personal THR & RPE, Instruct on MET level & personal MET goal, Show patient to take own pulse /validate performance until accurate, Instruct on home exercise - Physical Activity Home Exercise Physical Activity - Home Exercise: Safe Exercise, Warm-up, Self-monitoring, Cool-Down, Home Exercise > 30 min Daily, Sitting Time <3 hours/daily - Outcomes & Goals Outcomes/Goals: Demonstrates correct Warm-up/exercise Cool-Down (S3) if = 2.5 METs, Verbalizes symptoms of exercise intolerance by Session 3 (S3), Demonstrate safe equipment use (S3) & follows exercise prescrition (6) - Intervention & Plan Plan/Intervention: Instruct warm-up & cool-down if exercising at > 2 METs, Instruct on symptoms of exercise intolerance & actions to take, Instruct & monitor on saf, Assess intial functional capacity & safety risk Nutrition - Initial Assessment - Program Goals Nutrition Program Goals: LDL <100 optimal. 100 - 129 Near optimal. 130 - 159 Borderline High. 160 - 189 High. Total Cholesterol <200 desirable. 200 - 239 Borderline High. >/= 240 High. HDL < 40 Low >/=60 High. Triglycerides <150 desirable. <199 optimal. VlDL 5 - 40. HgbA1C <7%. BMI <25 Patient has diagnosis of Hyperlipidemia (ICD E78)?: Yes - Visit Date of Assessment:: 03/31/20 Session #:: 0 - PRE-CARDIAC REHAB EVALUATION - Cholesterol/Lipids Triglycerides (mg/dL): 35 - 02/21/2020 Total Cholesterol (mg/dL): 104 LDL Cholesterol (mg/dL): 39 HDL Cholesterol (mg/dL): 58 Determine presence & major risk factors that modify LDL goal: Hypertension or hypertensive medication, Family history of premature CHD in Male < 55 years: female <65 yearsFa, Age men > 45 years; women >/= 55 years Outcomes/Goals: Pt IDs own risk factors & lifestyle modifications by Session 10, Verbalizes symptoms of angina & response by session 3., Pt independently manages Intervention/Plan: Instruct on personal lipid levels & lipid goals/NCEP guidelines, Instruct on cholesterol - Diabetes (Other Core Measures) Diabetes Type: Not Applicable - Weight Mgt (Other Care) Not Applicable: No Height: 5 ft 11 in Weight:: 236 lb BMI: 32.9 Diagnosis Overweight/Obesity BMI> 30% ICD-10 E66: Yes Diagnosis High BMI/Morbid Obesity BMI> 35% ICD-10 Z68: No Outcomes/Goals: Pt sets, maintains & shows weight loss goal & trend during rehab Intervention/Plan: Instruct on ideal BMI & set weight loss goal w/patient, Assist pt to ID & incorporate diet changes for weight loss by S9, Refer to Structured Weight Loss program as appropriate - Healthy Eating Habits Will attend diet classes:: Yes Outcomes/Goals:: Consume diet rich in vegs,fruits,whole grain/high fiber,fish,lean meat, Limit sat/trans fats,cholesterol & added salts & sugars Intervention/Plan:: Assess current eating habits - Education Gave educational materials for:: Healthy eating Medical - Initial Assessment - Visit Date of Eval: 03/31/20 Session #:: 0 - PRE-CARDIAC REHAB EVALUATION - Medication Compliance Preventative Medication(s):: Aspirin, Statin/lipid, Beta shad H/O mental health issues: depression, anxiety, or addiction?: Yes Doesn?t believe in the benefits of treatment?: No Believes medications are unnecessary or harmful?: No Has a concern about medication side effects?: No Expresses concern over the cost of medications?: No Outcomes/Goals: Verbalizes medications,desired effect & common side effects @ DC, Pt self-reports following medication regimen, Keeps card in wallet w/medications listed by DC Interventions/plans: Instruct on medication effects & side effects, Review medication list w/patient every two weeks, Instruct importance of taking meds as ordered & assist problem solving - Tobacco Use Tobacco Use: Non-smoker - Hypertension Hypertension Diagnosis:: Hypertension ICD-10 I10 Resting Blood Pressure:: 141/72 - ON MEDICATIONS [place] [employer] Hypertension Guidelines: [place] [employer] Hypertension Guidelines. Normal BP Less than 120/80. Elevated BP 120/80. Hypertension Stage 1: BP 130-139/80-89. Hypertesnion Stage 2: BP 140 or higher/90 or higher. Hypertension Crisis: BP higher than 180/120 Outcomes/Goals: Able to verbalize/achieve optimal blood pressure <130/80, Incorporates diet changes & exercise for blood pressure control by DC Interventions/plan: Instruct on optimal blood pressure, hypertension & medications, Instruct on effects of sodium, alcohol, stress, exercise &hypertension - Tobacco Cessation Referral Smoking Cessation Referral:: No Individual Education/Counseling:: No Education Schedule Given:: Yes Psychosocial - Initial Assess - VIsit Date of Eval: 03/31/20 Session #:: 0 - PRECARDIAC REHAB EVALUATION Not Applicable: No History of previous Mental disease:: Yes History of Emotional Disorders: Anxious, Depression - Target Goals Target Goals: Assess presence or absence of depression. Using a valid screening tool, maximizes coping skills. Positive support system - Psychosocial Test Tool Used:: [place] QOL Cardiac, PHQ-9 Questionnaire phq-9 Severity: Severity. 1-4 Minimal Depression. 5-9 Mild Depression. 10-14 Moderate Depression. 15-19 Moderately Sever Depression. 20-27 Severe Depression. Rule: - Referral to Behavioral Health PS - Interventions: Yes Attend Stress Management Classes, No Referral to Behavioral Health if PHQ-9 score >9:, No Referral to [facility], No Referral to Physician if PHQ-9 if score is 5-9: - Outcomes/Goals: See list Psychosocial Outcomes/Goals:: ID's personal stressors & 2 strategies to manage stress by discharge - Intervention/Plan: See List Interventions/Plan:: Assess stressors,coping strategies & signs of derpression on admission, Instruct/assist pt to develop coping & personal stress Mgt strategies, Instruct patient to recognize signs & symptoms of depression, Instruct patient to recog Patient Health Questionnaire Initial Assessment 1. Little interest or pleasure in doing things: More than half the days 2. Feeling down, depressed, or hopeless: Several days 3. Trouble falling or staying asleep, or sleeping too much: Not at all 4. Feeling tired or having little energy: Nearly every day 5. Poor appetite or overeating: Not at all 6. Feeling bad about yourself -- or that you are a failure or have let yourself or your family down: Several days 7. Trouble concentrating on things, such as reading the newspaper or watching television: Not at all 8. Moving or speaking so slowly that other people could have noticed. Or the opposite - being so fidgety or restless that you have been moving around a lot more than usual: Not at all 9. Thoughts that you would be better off , or of hurting yourself in some way: Not at all How difficult have these problems made it for you to do your work, take care of things at home, or get along with other people?: Somewhat difficult Total Score: 7 SLIM-Q SV Test - Statements CAD is a disease of the arteries in the heart: False Examples of risk factors for heart disease: True Angina is chest pain or discomfort: True The benefits of resistance training include: True Eating more meat and dairy products: False Anti-platelet medications such as aspirin are important: True The only effective way to manage stress: False An exercise warm-up slowly increases heart rate: True Prepared, processed foods usually have high sodium: True Depression is common after a heart attack: True The statin medications lower cholesterol: True To control blood pressure, lower the amount of sodium: True If someone gets chest discomfort during walking: False Transfats are partially hydrogenated vegetable oils: True Sleep apnea that is not treated increases the risk: True To control cholesterol, one should become a vegetarian: True Someone knows if he/she is exercising at the right level: True Diabetes cannot be prevented with exercise & health eating: False Stress is a large risk for heart attack: True A diet that can help lower blood pressure is rich in: True - Total Score Total Correct Responses: 18 Self-Efficacy Initial Assessment We would like to know how confident you are in doing certain activities. Please select your confidence level for:: Select your confidence level for the following using the scale 1-10 where 1 is not at all confident and 10 is totally confident. Your score is the average of all 6 responses. Fatigue: How confident are you that you can keep the fatigue caused by your disease from interfering with the things you want to do? Select Number: 5 Physical Discomfort or Pain: How confident are you that you can keep the physical discomfort or pain of your disease from interfering with the things you want to do? Select Number: 5 Emotional Distress: How confident are you that you can keep the emotional distress caused by your disease from interfering with the things you want to do? Select Number: 9 Other Symptoms or Health Problems: How confident are you that you can keep other symptoms or health problems from interfering with the things you want to do? Select Number: 9 Different Tasks and Activities: How confident are you that you can do the different tasks and activities needed to manage your health condition so as to reduce your need to see a doctor? Select Number: 9 Medication: How confident are you that you can do things other than just taking medication to reduce how much your illness affects your everyday life? Select Number: 10 Total Score:: 7 Nutrition Survey - Nutrition Survey Instructions Scoring Instructions: Scoring is as follows: Yes = 1 points. No = 0 point. Patient score that is >/=12 is considered to be at potential nutritional risk and could benefit from a referral to a registered dietitian. - Nutrition Survey Initial Have you lost >10 lbs over the past 2 months without trying?: Yes Are you following a special diet at home for diabetes, low fat, or low salt?: No Are you interested in meeting with a dietitian for help understanding your diet?: No Do you eat less than 3 meals a day?: No Do you eat fatty meats (gomez, sausage, ribs, etc), fried foods, desserts, large amounts of salad dressings, margarine, butter, or cheese most days?: No Do you have food allergies? [Enter types in comment field]: Yes Do you eat in restaurants more than 3 times a week?: No Do you season food with salt, seasoning salt, or garlic salt?: No Do you used canned, boxed, frozen meals, or soups, seasoning packets?: No Total Score:: 2
--- NOTE | 2020-03-31 10:07 | PCM.CR.HP2 ---
CR - History & Physical - General Arrival date:: 03/31/20 Arrival time:: 10:10 Date of Referral:: 03/25/20 Date of CR Evaluation:: 03/31/20 Referring Physician: MUNA Primary Diagnosis: S/P CABG - History of Present Cardiac Event Onset Date: Enter Onset Date of cardiac illnesses in Comment field below Current stable Angina Pectoris:: Yes Acute Myocardial Infarction within 12 months:: Yes - ACUTE non-STEMI [place] Coronary Artery Bypass Graft:: Yes - 02/22/2020 - Medications Home Medications: Ambulatory Orders Medication Instructions Recorded Aspirin [Aspirin, Baby] 81 mg PO DAILY@0800 01/16/19 Cholecalciferol (Vitamin D3) 50,000 unit PO QWEEK 01/16/19 [Vitamin D] Levothyroxine [Synthroid] 50 mcg PO DAILY 01/16/19 atorvastatin 80 mg tablet 80 mg PO QHS 03/25/20 fluoxetine 20 mg capsule 20 mg PO DAILY cap 03/25/20 fluoxetine 40 mg capsule 40 mg PO DAILY cap 03/25/20 metoprolol tartrate 25 mg tablet 12.5 mg PO DAILY tab 03/25/20 valsartan 80 1 tab PO DAILY #90 tab 03/25/20 mg-hydrochlorothiazide 12.5 mg tablet - Allergies Allergies/Adverse Reactions: Allergies No Known Allergies Allergy (Verified 03/25/20 13:29) - Sleep Disorder Evaluation Hx of Sleep Apnea: Yes Do you snore loudly (louder than talking or can be heard through closed doors)?: Yes Do you often feel tired/ fatigued/ sleepy during daytime?: No Has anyone observed you stop breathing during sleep?: No History of Hypertension (for STOP score): Yes - PATIENT IS DIAGNOSED WITH DEEPAK AND HAS HOME BiPAP UNIT. STOP Results: Positive Advanced Directives - Advanced Directives Power of Oceanographic Meteorologist: Yes Living Will: Yes Advance Directives Information Provided: No Advance Directives on File: No - NOT SURE IF THEY ARE ON FILE HERE. DNR Order?:: No - MOLST See MOLST form: No Past Medical History - Covid-19 Screening Fever: No Unexplained muscle aches: No Current respiratory symptoms: No Upper respiratory infections symptoms: No Gastro-intestinal symptoms: No Lkn-Iuzt-Ngbjrf symptoms: No Has tested positive for COVID-19 in last 30 days: No Had contact w/person w/symptoms or Covid-19 (+) last 14 days: No Has High Risk Exposures ID'd by Health dept/Inf Control team: No 65 years or older:: Yes Lives in Assisted Living facility:: No Has a chronic lung disease or moderate to severe asthma:: No Has a serious heart condition:: Yes Immunocompromised:: No Severely obese (Body Mass Index of 40 or higher):: No Diabetic:: No Has chronic kidney disease undergoing dialysis:: No Has liver disease:: No - Past Medical Illness Medical History: Past Medical History (Last Reviewed 03/25/20 @ 15:[address] 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 Juan Manuel Toro MD) H/O coronary artery bypass surgery (Chronic) Onset Date: 02/22/20 Z95.1 CABG x 4 TREADWELL-LAD, SVG-D1, SVG-Ramus, SVG-RPDA 02/22/2020 History of left heart catheterization Onset Date: 02/22/20 Z98.890 Surgical History: coronary bypass surgery - Coronary vascular disease, hypertension, hyperlipidemia - Family History Summary Family History: Family History (Last Reviewed 03/25/20 @ 15:[address] Juan Manuel Toro MD) Mother CAD (coronary artery disease) Father CAD (coronary artery disease) Brother CAD (coronary artery disease) Social History - Smoking History Smoking Status: Never smoker Hx Tobacco Use: No Hx Smoking Exposure: No - Alcohol Use Alcohol Usage: Yes - GLASS OF WINE 2-3 TIMES PER WEEK. - Substance Abuse Hx Substance Use: No - Occupation Occupation (List type of work in comments):: Retired - Hobbies, Recreation, Social Activities Hobbies: Sports - gOLF, Reading, Walking - 1400 FT TWICE DAILY, UPPER BODY EXERCISES., Exercise, Other Recreational Activities: I am able to engage in most, but not all activities Social Environment - Status Marital Status: - Current Living Arrangements Living Environment:: Spouse - Children How many children do you have?: 3 Do any of your children live nearby?: Yes - BOYS IN [place] AND [place] - Safety Do you feel safe in your surroundings?: Yes - Assistance Do you need any assistance at home?: NONE Review of Systems - Review of Systems Hints: Right click = Denies (Slash). Left click = Reports ([place]) Review of Present Symptoms: Reports: Wound Healing, Fatigue - IF GETS TO FATIGUED, STOPS AND RESTS., Appetite - Normal - SMALLER AMOUNTS OF FOOD, BUT APPETITE IS GOOD. EATING REGULARLY., Appetite - Special Diet - LOW SODIUM, LOW FAT, CUT BACK ON RED MEATS TO TWICE WEEK., Sleep - Normal. Denies: Shortness of Breath at Rest, Shortness of Breath with Exertion, Operative Discomfort, Dizziness/Lightheadedness, Heart Arrhythmia/Irregularities, Sexual Changes - Pain Is Patient Pain Free?: Yes Pain Location: none Pain Level: 0/10 Risk Factor Assessment - Chief Complaint Chief Complaint: 80 Y[address] MALE OF [address] JUAN MANUEL TORO WHO PRESENTS TO CR TODAY FOLLOWING RECENT CABG ON 02/22/2020. PATIENT HAS H/O ATHERSCLEROTIC HEART DISEASE WITH ANGINA PECTORIS, ESSENTIAL HYPERTENSION, AND HYPERLIPIDEMIA. - Vital Signs Temperature: 97.2 F Respiratory Rate: 16 Pulse Ox: 96 Blood Pressure: 141/72 - Pulse Pulse Rate: 52 Pulse Rhythm: Regular - Hypertension Blood Pressure Sitting - Right Arm: 141/72 - Blood Cholesterol/Lipids Total Cholesterol (mg/dL) Goal = less than 200 mg/dL: 104 - 02/21/2020 HDL Cholesterol (mg/dL) Goal = less than 40 mg/dL: 58 LDL Cholesterol (mg/dL) Goal = less than 70 mg/dL: 39 Triglycerides (mg/dL) Goal = less than 150 mg/dL: 35 - Obesity Height: 5 ft 11 in Weight:: 236 lb Weight in Pounds: 236.0 lbs Weight Source: Standing Scale Body Mass Index (BMI): 32.9 - Risk Stratification Risk Guidelines: Lowest Risk: Risk Factor for Smoking, Risk Factor for Dyslipidemia, Risk Factor for Diabetes, Risk Factor for Sedentary Lifestyle, Moderate Risk: Risk Factor for Hypertension - STILL STAGE II HYPERTENSIVE FOLLOWING CABG; CONTINUE TO MONITOR BPs FOR ONE WEEK AND REPORT BACK TO DR. TORO., Risk Factor for Depression - PATIENT HAS PREVIOUS H/O DEPRESSION & ANXIETY, Highest Risk: Risk Factor for Obesity - For Smoking Smoking Risk Guidelines: Smoking Low Risk: None or quit greater than 6 months ago. Smoking Moderate Risk: Smoker or quit 6 months or less ago. Smoking High Risk: Smoker - For Dyslipidemia Dyslipidemia Risk Guidelines: Low Risk: Moderate Risk: High Risk: 15-25% fat 25.1-29% fat >/= 30% fat. <7% sat fat 7-9% sat fat >9% sat fat. <150 mg chol 150-299 mg chol >/= 300 mg chol. LDL <100 LDL 100-129 LDL >/= 130. Chol/HDL ratio <5.0 Chol/HDL ratio 5.0-6.0 Chol/HDL ratio >6.0. Triglycerides <100 Triglycerides 100-149 Triglycerides >/= 150 - For Diabetes Mellitus Diabetes Risk Guidelines: Diabetes Low Risk: HgA1c <6.5% and/or FBG <120. Diabetes Moderate Risk: HgA1c 6.6-7.9% and/or FBG 120-180. Diabetes High Risk: HgA1c >/= 8% and/or FBG >180 - For Obesity/Overweight Obesity/Overweight Risk Guidelines: Obesity Low Risk: BMI <25.0. Obesity Moderate Risk: BMI 25-29.9. Obesity High Risk: BMI >/= 30.0 - For Hypertension Hypertension Risk Guidelines: Hypertension Low Risk: Systolic <120 and Diastolic <80. Hypertension Moderate Risk: Systolic 120-139 and Diastolic 80-89. Hypertension High Risk: Systolic >/= 140 and Diastolic >/= 90 - For Sedentary Lifestyle Sedentary Lifestyle Risk Guidelines: Sedentary Lifestyle Low Risk: >/= 1,500 kcal/week. Sedentary Lifestyle Moderate Risk: 700-1,499 kcal/week. Sedentary Lifestyle High Risk: < 700 kcal/week - For Depression Depression Risk Guidelines: Depression Low Risk: Not clinically depressed. Depression Moderate Risk: Mildly depressed. Depression High Risk: Clinically depressed - Family History Family History: Family History (Last Reviewed 03/25/20 @ 15:[address] Juan Manuel Toro MD) Mother CAD (coronary artery disease) Father CAD (coronary artery disease) Brother CAD (coronary artery disease) Motivation - Motivation to Participate On a scale of 1 to 10, how prepared are you to commit to attending program?: 10 - WANT TO DO THIS. What do you see as barriers to successfully being able to complete the program?: NONE What do you see as the benefits of succesfully completing the program? In other words, what do you hope to get out of participating in the program?: GETTING BETTER Are there issues you are dealing with that will interfere with completing the program?: NONE, i KNOW i HAVE TO DO THIS TO GET BETTER. Do you have a spouse or signficant other, family or friends who will help support you to complete the program?: YES, EXCELLENT SUPPORT SYSTEM.
[2020-03-31 10:25] VITALS: BP 141/72; BMI 32.9
[2020-03-31 10:38] VITALS: BP 141/72; PULSE 52; RESP 16; TEMP 36.2; O2SAT 96; BMI 32.9
== END ==
PROVIDERS: PCP Internal Medicine; Referring Provider Internal Medicine Cardiovascular Disease; Visit Provider Internal Medicine Cardiovascular Disease
DX: I25.119 Atherosclerotic heart disease of native coronary artery with unspecified angina pectoris (principal); I10 Essential (primary) hypertension; I25.2 Old myocardial infarction; E78.5 Hyperlipidemia, unspecified; F41.9 Anxiety disorder, unspecified; F32.9 Major depressive disorder, single episode, unspecified; E03.9 Hypothyroidism, unspecified; G47.33 Obstructive sleep apnea (adult) (pediatric); E66.9 Obesity, unspecified; Z95.1 Presence of aortocoronary bypass graft; Z79.82 Long term (current) use of aspirin; Z79.899 Other long term (current) drug therapy

== ENCOUNTER 2020-04-11 13:00 | Outpatient (RCR) | payer MEDICARE, OTHER, SELFPAY ==
[2020-03-31 10:25] VITALS: BMI 32.9
[2020-03-31 10:38] VITALS: BMI 32.9
== END 2020-04-11 23:59 ==
LOC: CR 13:00
PROVIDERS: PCP Internal Medicine; Referring Provider Internal Medicine Cardiovascular Disease; Visit Provider Internal Medicine Cardiovascular Disease
DX: I25.119 Atherosclerotic heart disease of native coronary artery with unspecified angina pectoris (principal); Z95.1 Presence of aortocoronary bypass graft; I25.2 Old myocardial infarction; I10 Essential (primary) hypertension; E78.5 Hyperlipidemia, unspecified
CPT/HCPCS: 93798

== ENCOUNTER 2020-05-11 13:00 | Outpatient (RCR) | payer MEDICARE, OTHER, SELFPAY ==
[2020-03-31 10:25] VITALS: BMI 32.9
[2020-03-31 10:38] VITALS: BMI 32.9
--- NOTE | 2020-05-02 13:49 | CR.ITP_ITS ---
Exercise - 30-day Assessment - Visit Date of Eval: 05/02/20 Session #:: 11 - Physician Prescribed Exercise Modalities: Treadmill, Airdyne, NuStep Frequency: 3x/week for 12 weeks [36 sessions] Intensity: 60-80% of age predicted maximum heart rate reserve Current METSs:: 3 Target Heart Rate:: 93-120 Current RPE:: 12-13 Maximum Excercise HR:: 84 Resting Blood Pressure: 132/64 Maximum Exercise Blood Pressure: 140/70 EKG Type: Sinus jerri to sinus rhjythm with T wave abnormality, rare PVC. Rate depend - Outcomes & Goals Goals:: Verbalizes understanding of THR, RPE & goal METS by session 6, Documents in home exercise log/reports 30 min aerobic 5 day/wk by DC, Demonstrates accurate pulse taking by DC, Other additional outcome/goals: see below - Intervention & Plan Exercise Program Goals: Instruct on personal THR & RPE, Instruct on MET level & personal MET goal, Show patient to take own pulse /validate performance until accurate, Instruct on home exercise, Other additional plan/int - 30-day Reassessments 30 day Reassessments:: Progressing - Physical Activity Home Exercise Physical Activity - Home Exercise: Safe Exercise, Warm-up, Self-monitoring, Cool-Down, Home Exercise > 30 min Daily, Sitting Time <3 hours/daily - Outcomes & Goals Outcomes/Goals: Demonstrates correct Warm-up/exercise Cool-Down (S3) if = 2.5 METs, Verbalizes symptoms of exercise intolerance by Session 3 (S3), Demonstrate safe equipment use (S3) & follows exercise prescrition (6), Other: See below - Intervention & Plan Plan/Intervention: Instruct warm-up & cool-down if exercising at > 2 METs, Instruct on symptoms of exercise intolerance & actions to take, Instruct & monitor on saf, Assess intial functional capacity & safety risk, Other See below - 30-day Reassessments 30 day Reassessments:: Progressing Nutrition - 30-Day Assessment - Program Goals Nutrition Program Goals: LDL <100 optimal. 100 - 129 Near optimal. 130 - 159 Borderline High. 160 - 189 High. Total Cholesterol <200 desirable. 200 - 239 Borderline High. >/= 240 High. HDL < 40 Low >/=60 High. Triglycerides <150 desirable. <199 optimal. VlDL 5 - 40. HgbA1C <7%. BMI <25 Patient has diagnosis of Hyperlipidemia (ICD E78)?: Yes - Visit Date of Assessment:: 05/02/20 Session #:: 11 - Cholesterol/Lipids Determine presence & major risk factors that modify LDL goal: Hypertension or hypertensive medication, Low HDL cholesterol <40 mg/dL*, Family history of premature CHD in Male < 55 years: female <65 yearsFa, Age men > 45 years; women >/= 55 years Outcomes/Goals: Pt IDs own risk factors & lifestyle modifications by Session 10, Verbalizes symptoms of angina & response by session 3., Pt independently manages, Other Additional Outcomes/Goals: Intervention/Plan: Advocate for lipid panel cholesterol medication if applicable, Instruct on personal lipid levels & lipid goals/NCEP guidelines, Instruct on cholesterol, Other additional plan/int 30-day Reassessments:: Progressing - Weight Mgt (Other Care) Height: 5 ft 11 in Weight:: 107.048 kg BMI: 32.9 Outcomes/Goals: Pt sets, maintains & shows weight loss goal & trend during rehab, Other additional outcomes/goals Intervention/Plan: Instruct on ideal BMI & set weight loss goal w/patient, Assist pt to ID & incorporate diet changes for weight loss by S9, Refer to Structured Weight Loss program as appropriate, Encourage goal of using 250- 300dcal per session for weight loss, Other additional plan/interventions 30 day Reassessments:: Progressing - Healthy Eating Habits Will attend diet classes:: Yes Outcomes/Goals:: Consume diet rich in vegs,fruits,whole grain/high fiber,fish,lean meat, Limit sat/trans fats,cholesterol & added salts & sugars, Other additional outcome/goals: Intervention/Plan:: Assess current eating habits, Other Additional plan/interventions 30-day Reassessments:: Progressing Medical- 30-Day Assessment - Visit Date of Eval: 05/02/20 Session #:: 11 - Medication Compliance Preventative Medication(s):: Aspirin, Statin/lipid, Beta shad H/O mental health issues: depression, anxiety, or addiction?: Yes Doesn?t believe in the benefits of treatment?: No Believes medications are unnecessary or harmful?: No Has a concern about medication side effects?: No Expresses concern over the cost of medications?: No Outcomes/Goals: Verbalizes medications,desired effect & common side effects @ D C, Pt self-reports following medication regimen, Keeps card in wallet w/medications listed by DC, Other additional outcome/goals: Interventions/plans: Instruct on medication effects & side effects, Review medication list w/patient every two weeks, Instruct importance of taking meds as ordered & assist problem solving, Other additional 30-day Reassessments:: Progressing - Tobacco Use Tobacco Use: Non-smoker Do you use smokeless tobacco?: No 30-day Reassessments:: Progressing - Hypertension Hypertension Diagnosis:: Hypertension ICD-10 I10 Resting Blood Pressure:: 132/64 [place] [employer] Hypertension Guidelines: [place] [employer] Hypertension Guidelines. Normal BP Less than 120/80. Elevated BP 120/80. Hypertension Stage 1: BP 130-139/80-89. Hypertesnion Stage 2: BP 140 or higher/90 or higher. Hypertension Crisis: BP higher than 180/120 Outcomes/Goals: Able to verbalize/achieve optimal blood pressure <130/80, Inco rporates diet changes & exercise for blood pressure control by DC, Other additional outcomes/goals Interventions/plan: Instruct on optimal blood pressure, hypertension & medic ations, Instruct on effects of sodium, alcohol, stress, exercise &hypertension, Other additional plan/interventions 30 day Reassessments:: Progressing - Tobacco Cessation Referral Smoking Cessation Referral:: No Individual Education/Counseling:: No Education Schedule Given:: Yes Psychosocial - 30-Day Assess - VIsit Date of Eval: 05/02/20 Session #:: 11 Not Applicable: Yes History of Emotional Disorders: Anxious, Depression - Target Goals Target Goals: Assess presence or absence of depression. Using a valid screening tool, maximizes coping skills. Positive support system - Psychosocial Test phq-9 Severity: Severity. 1-4 Minimal Depression. 5-9 Mild Depression. 10-14 Moderate Depression. 15-19 Moderately Sever Depression. 20-27 Severe Depression. Rule: - Outcomes/Goals: See list Psychosocial Outcomes/Goals:: ID's personal stressors & 2 strategies to manage stress by discharge, Other Additional outcome/goals: - Intervention/Plan: See List Interventions/Plan:: Assess stressors,coping strategies & signs of derpression on admission, Instruct/assist pt to develop coping & personal stress Mgt strategies, Refer to Behavioral Health if appropriate, Refer to Physician if ap propriate, Instruct patient to recognize signs & symptoms of depression, Instruct patient to recog, Other additional plan/intervention - 30-day Reassessments: 30 day Reassessments:: Progressing Patient Health Questionnaire 30-Day Re-eval Assessment 1. Little interest or pleasure in doing things: More than half the days 2. Feeling down, depressed, or hopeless: Several days 3. Trouble falling or staying asleep, or sleeping too much: Not at all 4. Feeling tired or having little energy: Nearly every day 5. Poor appetite or overeating: Not at all 6. Feeling bad about yourself -- or that you are a failure or have let yourself or your family down: Several days 7. Trouble concentrating on things, such as reading the newspaper or watching television: Not at all 8. Moving or speaking so slowly that other people could have noticed. Or the opposite - being so fidgety or restless that you have been moving around a lot more than usual: Not at all 9. Thoughts that you would be better off , or of hurting yourself in some way: Not at all How difficult have these problems made it for you to do your work, take care of things at home, or get along with other people?: Somewhat difficult Total Score: 7 Self-Efficacy 30-Day Re-eval Assessment We would like to know how confident you are in doing certain activities. Please select your confidence level for:: Select your confidence level for the jessy lottmeaghan using the scale 1-10 where 1 is not at all confident and 10 is totally confident. Your score is the average of all 6 responses. Fatigue: How confident are you that you can keep the fatigue caused by your disease from interfering with the things you want to do? Select Number: 5 Physical Discomfort or Pain: How confident are you that you can keep the physical discomfort or pain of your disease from interfering with the things you want to do? Select Number: 5 Emotional Distress: How confident are you that you can keep the emotional distress caused by your disease from interfering with the things you want to do? Select Number: 9 Other Symptoms or Health Problems: How confident are you that you can keep other symptoms or health problems from interfering with the things you want to do? Select Number: 9 Different Tasks and Activities: How confident are you that you can do the different tasks and activities needed to manage your health condition so as to reduce your need to see a doctor? Select Number: 9 Medication: How confident are you that you can do things other than just taking medication to reduce how much your illness affects your everyday life? Select Number: 10 Total Score:: 7
[2020-05-02 14:02] VITALS: BP 132/64; BMI 32.9
== END 2020-05-12 23:59 ==
LOC: CR 13:00
PROVIDERS: PCP Internal Medicine; Referring Provider Internal Medicine Cardiovascular Disease; Visit Provider Internal Medicine Cardiovascular Disease
DX: I25.119 Atherosclerotic heart disease of native coronary artery with unspecified angina pectoris (principal); Z95.1 Presence of aortocoronary bypass graft; I25.2 Old myocardial infarction; I10 Essential (primary) hypertension; E78.5 Hyperlipidemia, unspecified
CPT/HCPCS: 93798

== ENCOUNTER → 2020-05-23 13:44 | Outpatient (CLI) | payer MEDICARE, OTHER, SELFPAY ==
[2020-03-31 10:38] VITALS: BMI 32.9
[2020-05-02 14:02] VITALS: BMI 32.9
[2020-05-23 15:30] LABS: Vitamin D,25 Hydroxy 55.7 ng/mL
[2020-05-23 15:39] LABS: ALB/GLOB Ratio 0.9 RATIO (0.9-2.4); AST(SGOT) 14 U/L (15-37); Alanine Aminotransfer ALT/SGPT 29 U/L (16-61); Albumin, Serum 3.7 g/dL (3.2-5.0); Alkaline Phosphatase 84 U/L (45-117); Anion Gap 7 (5-15); BUN 19 mg/dL (7-18); BUN/Creat Ratio 18.1 RATIO (10-20); Calcium,Total 8.6 mg/dL (8.5-10.1); Chloride 99 mmol/L (98-107); Creatinine, Serum 1.05 mg/dL (0.70-1.30); EST Glomerular Filtration Rate 73 mL/min (>60); Est Glom Filt Rate - Afr Amer 88 mL/min (>60); Glucose 79 mg/dL (74-106); Protein, Total 7.7 g/dL (6.4-8.2); Sodium Level 132 mmol/L (136-145); Thyroid Stim Hormone (TSH) 1.08 uIU/mL (0.358-3.74)
== END ==
PROVIDERS: PCP Internal Medicine; Referring Provider Internal Medicine Endocrinology, Diabetes & Metabolism; Visit Provider Internal Medicine Endocrinology, Diabetes & Metabolism
DX: E03.8 Other specified hypothyroidism (principal); E55.9 Vitamin D deficiency, unspecified; Z95.1 Presence of aortocoronary bypass graft
CPT/HCPCS: 36415; 80053; 82306; 84443; 93798

== ENCOUNTER 2020-06-03 13:00 | Outpatient (RCR) | payer MEDICARE, OTHER, SELFPAY ==
[2020-03-31 10:38] VITALS: BMI 32.9
[2020-05-02 14:02] VITALS: BMI 32.9
[2020-05-13 00:36] VITALS: BP 132/64
--- NOTE | 2020-05-27 06:36 | PCM.CR.ITP ---
Exercise - 60-day Assessment - Visit Date of Eval: 05/27/20 Session #:: 20 - Physician Prescribed Exercise Modalities: Treadmill, Airdyne, NuStep Frequency: 3x/week for 12 weeks [36 sessions] Intensity: 60-80% of age predicted maximum heart rate reserve Current METSs:: 3.5 Target Heart Rate:: 93-120 Current RPE:: 13-14 Maximum Excercise HR:: 82 Resting Blood Pressure: 138/68 Maximum Exercise Blood Pressure: 160/68 EKG Type: SINUS OMAR TO NSR WITH RARE PVCs. - Outcomes & Goals Goals:: Verbalizes understanding of THR, RPE & goal METS by session 6, Documents in home exercise log/reports 30 min aerobic 5 day/wk by DC, Demonstrates accurate pulse taking by DC - Intervention & Plan Exercise Program Goals: Instruct on personal THR & RPE, Instruct on MET level & personal MET goal, Show patient to take own pulse /validate performance until accurate, Instruct on home exercise - 30-day Reassessments 30 day Reassessments:: Progressing - Physical Activity Home Exercise Physical Activity - Home Exercise: Safe Exercise, Warm-up, Self-monitoring, Cool-Down, Home Exercise > 30 min Daily, Sitting Time <3 hours/daily - Outcomes & Goals Outcomes/Goals: Demonstrates correct Warm-up/exercise Cool-Down (S3) if = 2.5 METs, Verbalizes symptoms of exercise intolerance by Session 3 (S3), Demonstrate safe equipment use (S3) & follows exercise prescrition (6) - Intervention & Plan Plan/Intervention: Instruct warm-up & cool-down if exercising at > 2 METs, Instruct on symptoms of exercise intolerance & actions to take, Instruct & monitor on saf, Assess intial functional capacity & safety risk - 30-day Reassessments 30 day Reassessments:: Progressing Nutrition - 60-Day Assessment - Program Goals Nutrition Program Goals: LDL <100 optimal. 100 - 129 Near optimal. 130 - 159 Borderline High. 160 - 189 High. Total Cholesterol <200 desirable. 200 - 239 Borderline High. >/= 240 High. HDL < 40 Low >/=60 High. Triglycerides <150 desirable. <199 optimal. VlDL 5 - 40. HgbA1C <7%. BMI <25 Patient has diagnosis of Hyperlipidemia (ICD E78)?: Yes - Visit Date of Assessment:: 05/27/20 Session #:: 20 - Cholesterol/Lipids Determine presence & major risk factors that modify LDL goal: Hypertension or hypertensive medication, Family history of premature CHD in Male < 55 years: female <65 yearsFa, Age men > 45 years; women >/= 55 years Outcomes/Goals: Pt IDs own risk factors & lifestyle modifications by Session 10, Verbalizes symptoms of angina & response by session 3., Pt independently manages Intervention/Plan: Instruct on personal lipid levels & lipid goals/NCEP guidelines, Instruct on cholesterol Referral to dietitian:: No - aFTER SPEAKING WITH THE PATIENT, THEY INDICATED THEY ARE NOT INTERESTED. 30-day Reassessments:: Progressing - Weight Mgt (Other Care) Not Applicable: No Height: 5 ft 11 in Weight:: 233 lb 8 oz BMI: 32.5 Diagnosis Overweight/Obesity BMI> 30% ICD-10 E66: Yes Diagnosis High BMI/Morbid Obesity BMI> 35% ICD-10 Z68: No Outcomes/Goals: Pt sets, maintains & shows weight loss goal & trend during rehab Intervention/Plan: Instruct on ideal BMI & set weight loss goal w/patient, Assist pt to ID & incorporate diet changes for weight loss by S9, Encourage goal of using 250-300dcal per session for weight loss 30 day Reassessments:: Progressing - Healthy Eating Habits Will attend diet classes:: Yes Outcomes/Goals:: Consume diet rich in vegs,fruits,whole grain/high fiber,fish,lean meat, Limit sat/trans fats,cholesterol & added salts & sugars Intervention/Plan:: Assess current eating habits 30-day Reassessments:: Progressing Medical- 60-Day Assessment - Visit Date of Eval: 05/27/20 Session #:: 20 - Medication Compliance Preventative Medication(s):: Aspirin, Statin/lipid, Beta shad H/O mental health issues: depression, anxiety, or addiction?: No Doesn?t believe in the benefits of treatment?: No Believes medications are unnecessary or harmful?: No Has a concern about medication side effects?: No Expresses concern over the cost of medications?: No Outcomes/Goals: Verbalizes medications,desired effect & common side effects @ DC, Pt self-reports following medication regimen, Keeps card in wallet w/medications listed by DC Interventions/plans: Instruct on medication effects & side effects, Review medication list w/patient every two weeks, Instruct importance of taking meds as ordered & assist problem solving 30-day Reassessments:: Progressing - Tobacco Use Tobacco Use: Non-smoker - Hypertension Hypertension Diagnosis:: Hypertension ICD-10 I10 Resting Blood Pressure:: 138/68 - Reported to Dr. Smiley [place] [employer] Hypertension Guidelines: [place] [employer] Hypertension Guidelines. Normal BP Less than 120/80. Elevated BP 120/80. Hypertension Stage 1: BP 130-139/80-89. Hypertesnion Stage 2: BP 140 or higher/90 or higher. Hypertension Crisis: BP higher than 180/120 Peak Exercise Blood Pressure:: 160/68 Outcomes/Goals: Able to verbalize/achieve optimal blood pressure <130/80, Incorporates diet changes & exercise for blood pressure control by DC Interventions/plan: Instruct on optimal blood pressure, hypertension & medications, Instruct on effects of sodium, alcohol, stress, exercise &hypertension 30 day Reassessments:: Progressing - Tobacco Cessation Referral Smoking Cessation Referral:: No Individual Education/Counseling:: No Education Schedule Given:: Yes Psychosocial - 60-Day Assess - VIsit Date of Eval: 05/27/20 Session #:: 20 Not Applicable: Yes History of previous Mental disease:: No - Target Goals Target Goals: Assess presence or absence of depression. Using a valid screening tool, maximizes coping skills. Positive support system - Psychosocial Test Tool Used:: PHQ-9 Questionnaire phq-9 Severity: Severity. 1-4 Minimal Depression. 5-9 Mild Depression. 10-14 Moderate Depression. 15-19 Moderately Sever Depression. 20-27 Severe Depression. Rule: - Referral to Behavioral Health PS - Interventions: Yes Attend Stress Management Classes, No Referral to Behavioral Health if PHQ-9 score >9:, No Referral to [facility], No Referral to Physician if PHQ-9 if score is 5-9: - Outcomes/Goals: See list Psychosocial Outcomes/Goals:: ID's personal stressors & 2 strategies to manage stress by discharge - Intervention/Plan: See List Interventions/Plan:: Assess stressors,coping strategies & signs of derpression on admission, Instruct/assist pt to develop coping & personal stress Mgt strategies, Instruct patient to recognize signs & symptoms of depression, Instruct patient to recog - 30-day Reassessments: 30 day Reassessments:: Progressing Patient Health Questionnaire 60-Day Re-eval Assessment 1. Little interest or pleasure in doing things: Several days 2. Feeling down, depressed, or hopeless: Not at all 3. Trouble falling or staying asleep, or sleeping too much: Not at all 4. Feeling tired or having little energy: More than half the days 5. Poor appetite or overeating: Not at all 6. Feeling bad about yourself -- or that you are a failure or have let yourself or your family down: Not at all 7. Trouble concentrating on things, such as reading the newspaper or watching television: Not at all 8. Moving or speaking so slowly that other people could have noticed. Or the opposite - being so fidgety or restless that you have been moving around a lot more than usual: Not at all 9. Thoughts that you would be better off , or of hurting yourself in some way: Not at all How difficult have these problems made it for you to do your work, take care of things at home, or get along with other people?: Somewhat difficult Total Score: 3 Self-Efficacy 60-Day Re-eval Assessment We would like to know how confident you are in doing certain activities. Please select your confidence level for:: Select your confidence level for the following using the scale 1-10 where 1 is not at all confident and 10 is totally confident. Your score is the average of all 6 responses. Fatigue: How confident are you that you can keep the fatigue caused by your disease from interfering with the things you want to do? Select Number: 7 Physical Discomfort or Pain: How confident are you that you can keep the physical discomfort or pain of your disease from interfering with the things you want to do? Select Number: 8 Emotional Distress: How confident are you that you can keep the emotional distress caused by your disease from interfering with the things you want to do? Select Number: 9 Other Symptoms or Health Problems: How confident are you that you can keep other symptoms or health problems from interfering with the things you want to do? Select Number: 9 Different Tasks and Activities: How confident are you that you can do the different tasks and activities needed to manage your health condition so as to reduce your need to see a doctor? Select Number: 10 Medication: How confident are you that you can do things other than just taking medication to reduce how much your illness affects your everyday life? Select Number: 10 Total Score:: 8
[2020-05-27 06:43] VITALS: BP 138/68; BP 160/68; BMI 32.5
== END 2020-06-12 23:59 ==
LOC: CR 13:00
PROVIDERS: PCP Internal Medicine; Referring Provider Internal Medicine Cardiovascular Disease; Visit Provider Internal Medicine Cardiovascular Disease
DX: Z95.1 Presence of aortocoronary bypass graft (principal); I25.119 Atherosclerotic heart disease of native coronary artery with unspecified angina pectoris; I25.2 Old myocardial infarction; I10 Essential (primary) hypertension; E78.5 Hyperlipidemia, unspecified
CPT/HCPCS: 93798

== ENCOUNTER 2020-07-04 13:00 | Outpatient (RCR) | payer MEDICARE, OTHER, SELFPAY ==
[2020-03-31 10:38] VITALS: BMI 32.9
[2020-05-27 06:43] VITALS: BMI 32.5
[2020-06-13 00:32] VITALS: BP 138/68; BP 160/68
--- NOTE | 2020-06-29 14:07 | PCM.CR.ITP ---
Exercise - 90-day Assessment - Visit Date of Eval: 06/29/20 Session #:: 27 - Physician Prescribed Exercise Modalities: Treadmill, Airdyne, NuStep Frequency: 3x/week for 12 weeks [36 sessions] Intensity: 60-80% of age predicted maximum heart rate reserve Current METSs:: 4 Target Heart Rate:: 93-120 Current RPE:: 13-14 Maximum Excercise HR:: 92 Resting Blood Pressure: 144/72 Maximum Exercise Blood Pressure: 158/80 EKG Type: Sinus jerri to sinus rhythm with T wave inversion rare PVC and PAC. - Outcomes & Goals Goals:: Verbalizes understanding of THR, RPE & goal METS by session 6, Documents in home exercise log/reports 30 min aerobic 5 day/wk by DC, Demonstrates accurate pulse taking by DC, Other additional outcome/goals: see below - Intervention & Plan Exercise Program Goals: Instruct on personal THR & RPE, Instruct on MET level & personal MET goal, Show patient to take own pulse /validate performance until accurate, Instruct on home exercise, Other additional plan/int - 30-day Reassessments 30 day Reassessments:: Progressing - Physical Activity Home Exercise Physical Activity - Home Exercise: Safe Exercise, Warm-up, Self-monitoring, Cool-Down, Home Exercise > 30 min Daily, Sitting Time <3 hours/daily - Outcomes & Goals Outcomes/Goals: Demonstrates correct Warm-up/exercise Cool-Down (S3) if = 2.5 METs, Verbalizes symptoms of exercise intolerance by Session 3 (S3), Demonstrate safe equipment use (S3) & follows exercise prescrition (6), Other: See below - Intervention & Plan Plan/Intervention: Instruct warm-up & cool-down if exercising at > 2 METs, Instruct on symptoms of exercise intolerance & actions to take, Instruct & monitor on saf, Assess intial functional capacity & safety risk, Other See below - 30-day Reassessments 30 day Reassessments:: Progressing Nutrition - 90-Day Assessment - Program Goals Nutrition Program Goals: LDL <100 optimal. 100 - 129 Near optimal. 130 - 159 Borderline High. 160 - 189 High. Total Cholesterol <200 desirable. 200 - 239 Borderline High. >/= 240 High. HDL < 40 Low >/=60 High. Triglycerides <150 desirable. <199 optimal. VlDL 5 - 40. HgbA1C <7%. BMI <25 Patient has diagnosis of Hyperlipidemia (ICD E78)?: Yes - Visit Date of Assessment:: 06/29/20 Session #:: 27 - Cholesterol/Lipids Determine presence & major risk factors that modify LDL goal: Hypertension or hypertensive medication, Low HDL cholesterol <40 mg/dL*, Family history of premature CHD in Male < 55 years: female <65 yearsFa, Age men > 45 years; women >/= 55 years Outcomes/Goals: Pt IDs own risk factors & lifestyle modifications by Session 10, Verbalizes symptoms of angina & response by session 3., Pt independently manages, Other Additional Outcomes/Goals: Intervention/Plan: Advocate for lipid panel cholesterol medication if applicable, Instruct on personal lipid levels & lipid goals/NCEP guidelines, Instruct on cholesterol, Other additional plan/int 30-day Reassessments:: Progressing - Weight Mgt (Other Care) Height: 5 ft 11 in Weight:: 107.048 kg BMI: 32.9 Outcomes/Goals: Pt sets, maintains & shows weight loss goal & trend during rehab, Other additional outcomes/goals Intervention/Plan: Instruct on ideal BMI & set weight loss goal w/patient, Assist pt to ID & incorporate diet changes for weight loss by S9, Refer to Structured Weight Loss program as appropriate, Encourage goal of using 250-300dcal per session for weight loss, Other additional plan/interventions 30 day Reassessments:: Progressing - Healthy Eating Habits Will attend diet classes:: Yes Outcomes/Goals:: Consume diet rich in vegs,fruits,whole grain/high fiber,fish,lean meat, Limit sat/trans fats,cholesterol & added salts & sugars, Other additional outcome/goals: Intervention/Plan:: Assess current eating habits, Other Additional plan/interventions 30-day Reassessments:: Progressing - Education Gave educational materials for:: Signs & symptoms of hypoglycemia, Signs & symptoms of hyperglycemia, Relate diabetes to coronary artery disease, Healthy eating Medical- 90-Day Assessment - Visit Date of Eval: 06/29/20 Session #:: 27 - Medication Compliance Preventative Medication(s):: Aspirin, Statin/lipid, Beta shad H/O mental health issues: depression, anxiety, or addiction?: Yes Doesn?t believe in the benefits of treatment?: No Believes medications are unnecessary or harmful?: No Has a concern about medication side effects?: No Expresses concern over the cost of medications?: No Outcomes/Goals: Verbalizes medications,desired effect & common side effects @ DC, Pt self-reports following medication regimen, Keeps card in wallet w/medications listed by DC, Other additional outcome/goals: Interventions/plans: Instruct on medication effects & side effects, Review medication list w/patient every two weeks, Instruct importance of taking meds as ordered & assist problem solving, Other additional 30-day Reassessments:: Progressing - Tobacco Use Tobacco Use: Non-smoker Do you use smokeless tobacco?: No 30-day Reassessments:: Progressing - Hypertension Hypertension Diagnosis:: Hypertension ICD-10 I10 Resting Blood Pressure:: 144/72 [place] [employer] Hypertension Guidelines: [place] [employer] Hypertension Guidelines. Normal BP Less than 120/80. Elevated BP 120/80. Hypertension Stage 1: BP 130-139/80-89. Hypertesnion Stage 2: BP 140 or higher/90 or higher. Hypertension Crisis: BP higher than 180/120 Peak Exercise Blood Pressure:: 158/80 Outcomes/Goals: Able to verbalize/achieve optimal blood pressure <130/80, Incorporates diet changes & exercise for blood pressure control by DC, Other additional outcomes/goals Interventions/plan: Instruct on optimal blood pressure, hypertension & medications, Instruct on effects of sodium, alcohol, stress, exercise &hypertension, Other additional plan/interventions 30 day Reassessments:: Progressing - Tobacco Cessation Referral Smoking Cessation Referral:: No Individual Education/Counseling:: No Education Schedule Given:: Yes Psychosocial - 90-Day Assess - VIsit Date of Eval: 06/29/20 Session #:: 27 History of previous Mental disease:: Yes History of Emotional Disorders: Anxious, Depression - Target Goals Target Goals: Assess presence or absence of depression. Using a valid screening tool, maximizes coping skills. Positive support system - Psychosocial Test phq-9 Severity: Severity. 1-4 Minimal Depression. 5-9 Mild Depression. 10-14 Moderate Depression. 15-19 Moderately Sever Depression. 20-27 Severe Depression. Rule: - Outcomes/Goals: See list Psychosocial Outcomes/Goals:: ID's personal stressors & 2 strategies to manage stress by discharge, Other Additional outcome/goals: - Intervention/Plan: See List Interventions/Plan:: Assess stressors,coping strategies & signs of derpression on admission, Instruct/assist pt to develop coping & personal stress Mgt strategies, Refer to Behavioral Health if appropriate, Refer to Physician if appropriate, Instruct patient to recognize signs & symptoms of depression, Instruct patient to recog, Other additional plan/intervention - 30-day Reassessments: 30 day Reassessments:: Progressing Patient Health Questionnaire 90-Day Re-eval Assessment 1. Little interest or pleasure in doing things: Several days 2. Feeling down, depressed, or hopeless: Not at all 3. Trouble falling or staying asleep, or sleeping too much: Not at all 4. Feeling tired or having little energy: More than half the days 5. Poor appetite or overeating: Not at all 6. Feeling bad about yourself -- or that you are a failure or have let yourself or your family down: Not at all 7. Trouble concentrating on things, such as reading the newspaper or watching television: Not at all 8. Moving or speaking so slowly that other people could have noticed. Or the opposite - being so fidgety or restless that you have been moving around a lot more than usual: Not at all 9. Thoughts that you would be better off , or of hurting yourself in some way: Not at all How difficult have these problems made it for you to do your work, take care of things at home, or get along with other people?: Somewhat difficult Total Score: 3 Self-Efficacy 90-Day Re-eval Assessment We would like to know how confident you are in doing certain activities. Please select your confidence level for:: Select your confidence level for the following using the scale 1-10 where 1 is not at all confident and 10 is totally confident. Your score is the average of all 6 responses. Fatigue: How confident are you that you can keep the fatigue caused by your disease from interfering with the things you want to do? Select Number: 7 Physical Discomfort or Pain: How confident are you that you can keep the physical discomfort or pain of your disease from interfering with the things you want to do? Emotional Distress: How confident are you that you can keep the emotional distress caused by your disease from interfering with the things you want to do? Select Number: 9 Other Symptoms or Health Problems: How confident are you that you can keep other symptoms or health problems from interfering with the things you want to do? Select Number: 9 Different Tasks and Activities: How confident are you that you can do the different tasks and activities needed to manage your health condition so as to reduce your need to see a doctor? Select Number: 10 Medication: How confident are you that you can do things other than just taking medication to reduce how much your illness affects your everyday life? Select Number: 10
[2020-06-29 14:15] VITALS: BP 144/72; BP 158/80; BMI 32.9
== END 2020-07-10 23:59 ==
LOC: CR 13:00
PROVIDERS: PCP Internal Medicine; Referring Provider Internal Medicine Cardiovascular Disease; Visit Provider Internal Medicine Cardiovascular Disease
DX: Z95.1 Presence of aortocoronary bypass graft (principal); I25.119 Atherosclerotic heart disease of native coronary artery with unspecified angina pectoris; I25.2 Old myocardial infarction; I10 Essential (primary) hypertension; E78.5 Hyperlipidemia, unspecified
CPT/HCPCS: 93798

== ENCOUNTER 2020-07-04 20:26 | Emergency (ER) | payer MEDICARE, OTHER, SELFPAY ==
[2020-03-31 10:38] VITALS: BMI 32.9
[2020-06-29 14:15] VITALS: BMI 32.9
[2020-07-04 20:27] VITALS: BP 198/105; PULSE 60; RESP 15; TEMP 36; O2SAT 96; BMI 32.6
--- NOTE | 2020-07-04 21:24 | CT_ITS ---
STUDY: CT BRAIN WITHOUT CONTRAST REASON FOR EXAM: Male, 80 years old. headache, htn RADIATION DOSAGE (If Supplied By Facility): CTDIvol = ( 44.99 ) mGy, DLP = ( 812.98 ) mGycm TECHNIQUE: Transaxial CT imaging of the brain was performed without administration of intravenous contrast material. Individualized dose optimization techniques were used for this CT. COMPARISON: No relevant priors. FINDINGS: Normal soft tissue structures. Normal calvarium. Normal size ventricles and extra-axial spaces for the patient''s age. Normal white matter tracts of the cerebral hemispheres. Normal basal ganglia and thalami. Normal brainstem. Normal cerebellum. There is no intracranial hemorrhage. There are no findings of an acute ischemic infarction. Normal visualized paranasal sinuses. CT/Brain/Head without Contrast IMPRESSION: Normal unenhanced CT scan of the brain. Electronically Signed: Cristobal Pollard MD at 22:35 EST , Service support ,
--- NOTE | 2020-07-04 21:24 | EKG12_ITS ---
Test Reason : HYPERTENSION Blood Pressure : / mmHG Vent. Rate : 059 BPM Atrial Rate : 059 BPM P-R Int : 188 ms QRS Dur : 100 ms QT Int : 448 ms P-R-T Axes : 053 008 -28 degrees QTc Int : 443 ms Sinus bradycardia Nonspecific T wave abnormality Abnormal ECG Confirmed by MUNA MONZON, KHANG ([id number]), primer expeditor and drier JESSY CONTRERAS ([id number]) on 07/06/2020 12:45:38 PM Referred By: BETY Confirmed By:KHANG TORO MD
--- NOTE | 2020-07-04 21:30 | RAD_ITS ---
STUDY: X-RAY CHEST REASON FOR EXAM: Male, 80 years old. PT STATES HIS BP WAS ELEVATED WHEN HE WENT TO CARDIAC REHAB TODAY. WENT HOME AND WAS TOLD BY DR TO TAKE AN EXTRA MEDICATION. STATES IT HASN''T IMPROVED. STATES DOES HAVE A HEADACHE TECHNIQUE: Single AP portable view of the chest. COMPARISON: 03/08/2020. FINDINGS: The lungs are clear and expanded. There is no demonstrated pleural abnormality. There is moderate cardiac enlargement. Previous CABG. Normal mediastinum and shant. Normal visualized pulmonary arteries. There is atherosclerotic tortuosity of the aortic arch and descending thoracic aorta. Normal visualized thoracic spine. There is degenerative osteoarthritis of the bilateral shoulders. There is no demonstrated abnormality of the visualized soft tissue structures of the upper abdomen. RAD/Chest 1 View (Portable) IMPRESSION: Moderate cardiomegaly. No definite acute chest disease. Electronically Signed: Cristobal Pollard MD at 22:18 EST , Service support ,
[2020-07-04 21:40] LABS: Absolute Lymphocyte Count 1.49 X10^3/uL (0.83-4.51); Absolute Neutrophil Count 2.5 X10^3/uL (2.0-7.7); Basophil# 0.05 X10^3/uL; Basophil% 0.9 % (0-1); Eosinophil# 0.45 X10^3/uL; Hematocrit 42.5 % (40-54); Hemoglobin 13.8 g/dL (13.0-16.5); Lymphocyte # 1.49 X10^3/ul (4.0); Lymphocyte % 26.5 % (19-41); Mean Corp Hgb Conc 32.5 g/dL (32-36); Mean Corpuscular Hgb 26.4 pg (27.0-32.0); Mean Corpuscular Volume 81.3 fL (80-94); Monocyte# 1.09 X10^3/uL; Monocyte% 19.4 % (0-10); NRBC Flagged by Analyzer 0 % (0-5); Neutrophil # 2.52 X10^3/uL (2.7-7.7); Neutrophil % 44.8 % (47-70); Platelet Count 173 K/mm3 (150-450); RBC Distribution Width CV 16.8 % (11.6-14.6); RBC Distribution Width SD 49.5 fl (35.1-43.9); Red Blood Count 5.23 M/mm3 (4.6-6.2); White Blood Count 5.6 K/mm3 (4.4-11.0)
[2020-07-04 21:54] LABS: Anion Gap 7 (5-15); BUN 17 mg/dL (7-18); BUN/Creat Ratio 18.8 RATIO (10-20); Calcium,Total 8.7 mg/dL (8.5-10.1); Chloride 100 mmol/L (98-107); Creatinine, Serum 0.91 mg/dL (0.70-1.30); EST Glomerular Filtration Rate 86 mL/min (>60); Est Glom Filt Rate - Afr Amer 104 mL/min (>60); Estimated Creatinine Clearance 71.25 ml/min; Glucose 85 mg/dL (74-106); Potassium 3.6 mmol/L (3.5-5.1); Sodium Level 133 mmol/L (136-145)
[2020-07-04 22:32] VITALS: PULSE 61; RESP 18; O2SAT 98
[2020-07-04 22:37] VITALS: BP 170/90
--- NOTE | 2020-07-04 23:20 | ED.VIS.GEN ---
History of Present Illness Chief Complaint: Hypertension Informant: Patient Onset: Today Context: Gradual Onset Timing: Intermittent Narrative: Male with history of hypertension as well as coronary artery disease status post CABG on February 24 presenting for high blood pressure and headache. Patient was at cardiac rehab today where his blood pressure was 170 systolic. When he checked his blood pressure at home it was 240/116 this evening. He did call his conference service coordinator earlier today who instructed to take an extra dose of his valsartan/HCTZ. Patient had this at 4 PM. His blood pressure continued to be elevated so he came to the emergency room to be evaluated further. He also notes he had a mild headache throughout the day today. It is over his forehead. He notes he took two Tylenol this morning and two more this evening. The headache has been gradual in onset and constant. He denies any associated photo or phonophobia. No neck pain or any reports of falls. Patient denies any associated chest pain or shortness of breath. No leg swelling. No other complaints at this time. Past Medical History - Allergies and Home Meds Allergies/Adverse Reactions: Allergies shellfish derived Allergy (Verified 07/04/20 20:26) NEEDS FOLLOW-UP Primary Care Physician: Priya Chin MD [Primary Care Provider] - Past Medical History: - - Coronary artery disease, hypertension Surgical History: coronary bypass surgery - Coronary vascular disease, hypertension, hyperlipidemia Smoking Status: Never smoker - Family History Maternal Family History: Family History (Last Reviewed 03/25/20 @ 15:[address] Juan Manuel Smiley MD) Mother CAD (coronary artery disease) Father CAD (coronary artery disease) Brother CAD (coronary artery disease) Family History: Reports: High Cholesterol, Heart Disease, Hypertension, - - Patient notes a significant maternal family history of heart disease, mother with initial bypass surgery at age 72 and eventually requiring an additional bypass cardiac surgery. Paternal Family History: Family History (Last Reviewed 03/25/20 @ 15:[address] Juan Manuel Smiley MD) Mother CAD (coronary artery disease) Father CAD (coronary artery disease) Brother CAD (coronary artery disease) Family History: Reports: High Cholesterol, Heart Disease, Hypertension, - - Patient notes a significant paternal family history of heart disease, father with initial bypass surgery at age 65 and eventually requiring an additional bypass cardiac surgery. Sibling Family History: Family History (Last Reviewed 03/25/20 @ 15:[address] Juan Manuel Smiley MD) Mother CAD (coronary artery disease) Father CAD (coronary artery disease) Brother CAD (coronary artery disease) Family History: Reports: High Cholesterol, Heart Disease, Hypertension, - - Patient notes brother with a significant heart disease history with initial heart attack and bypass surgery at age 55. Review of Systems General: Denies: Chills, Fever, Sweats Eyes: Denies: Visual changes - bilaterally, Diplopia ENT: Denies: Rhinorrhea, Sore throat Cardiovascular: Denies: Chest pain, Palpitations Respiratory: Denies: Dyspnea, Cough, Dyspnea on exertion Gastrointestinal: Denies: Abdominal pain, Nausea, Vomiting, Diarrhea, Melena, Hematochezia Genitourinary: Denies: Dysuria, Hematuria, Frequency Musculoskeletal: Denies: Back pain, Extremity Pain Skin: Denies: Rash, Wounds Neurological: Reports: Headache. Denies: Weakness, Numbness Physical Exam Vital Signs/Narrative: Vital Signs Temp Pulse Resp BP Pulse Ox 07/04/20 22:37 170/90 H 07/04/20 22:32 61 18 98 07/04/20 20:27 96.8 F L 60 15 198/105 H 96 Inital Vital Signs reviewed: Yes General: Well nourished, Well developed, No Acute Distress Head: Normocephalic, Atraumatic Eyes: Perrl, EOMI ENT: Moist mucous membranes, No rhinorrhea, TM's clear. Negative for: Nasal congestion Neck: Supple, Nontender, No JVD Cardiovascular: Regular rate, Regular rhythm, No murmurs Respiratory: No distress, CTA bilaterally, Chest nontender Abdomen: Soft, Nontender, Nondistended, Normal bowel sounds Back: Nontender, Normal Inspection Extremities: Nontender, No edema Skin: Normal color, No rash Neurological: Alert, Oriented x3, Cranial nerves II-XII grossly intact, Normal Strength, Normal Sensation Psychological: Normal affect, Normal Mood Diagnostic/Tx/Re-eval Chest X-Ray - ED: 1 View, Read by ED Physician, Read by Radiologist, No Acute Disease Clinical Impression(s) from Imaging Studies Brain CT 07/04/20 21:24 IMPRESSION: Normal unenhanced CT scan of the brain. Electronically Signed: Cristobal Pollard MD at 22:35 EST , Service support , Chest X-Ray 07/04/20 21:30 IMPRESSION: Moderate cardiomegaly. No definite acute chest disease. Electronically Signed: Cristobal Pollard MD at 22:18 EST , Service support , Laboratory Data 07/04/20 07/04/20 21:03 21:03 WBC 5.6 RBC 5.23 Hgb 13.8 Hct 42.5 MCV 81.3 MCH 26.4 L MCHC 32.5 RDW Std Deviation 49.5 H RDW Coeff of Tc 16.8 H Plt Count 173 MPV 10.0 Immature Gran % (Auto) 0.400 Neut % (Auto) 44.8 L Lymph % (Auto) 26.5 [place] % (Auto) 19.4 H Eos % (Auto) 8.0 H Baso % (Auto) 0.9 Absolute Neuts (auto) 2.5 Absolute Lymphs (auto) 1.49 Nucleated RBC % 0 Sodium 133 L Potassium 3.6 Chloride 100 Carbon Dioxide 26.0 Anion Gap 7 BUN 17 Creatinine 0.91 Estim Creat Clear Calc 71.25 Est GFR (MDRD) Af Amer 104 Est GFR (MDRD) Non-Af 86 BUN/Creatinine Ratio 18.8 Glucose 85 Calcium 8.7 Troponin I < 0.015 - Rhythm Strip Rhythm Strip: Sinus Rhythm Rate: 59 Ectopy: None - EKG Initial EKG Interpretation: Sinus Bradycardia, - - ?Bradycardia at a rate of 59 Normal axis Normal intervals Nonspecific T wave inversion in 2, 3 and aVF - Medical Decision Making Patient is a 80-year-old male presenting with concern for elevated blood pressure as well as mild headache. Patient appears nontoxic in no acute distress. He is hypertensive but has a normal neurologic exam. He does not have any findings consistent with a hypertensive emergency. His blood pressure slowly improving while in the ER. Patient did take an extra dose of his valsartan/HCTZ tonight per the instructions of his conference service coordinator. I did check screening labs looking for signs of endorgan damage from his hypertension. Everything came back at his baseline. Patient states he will take Motrin at home for his headache. Head CT did not show any acute intracranial process. Patient has a normal neurologic exam. Will follow up with his conference service coordinator for further blood pressure management recommendations. Patient is counseled on signs and symptoms requiring return to the emergency room. Patient verbalizes agreement and understand this plan. Patient discharged home in stable and improved condition. ED Disposition - Plan for ED Patient: Disposition: Home or Assisted Living Diagnosis: Headache, Hypertension Instructions: ED High Blood Pressure ..., ED Headache, Tension Referrals: Priya Chin MD [Primary Care Provider] - Juan Manuel Smiley MD [[facility]] -
[2020-07-04 23:37] VITALS: BP 171/78; PULSE 60; RESP 15; O2SAT 98
== END 2020-07-04 23:38 | disposition home or self-care (01) ==
PROVIDERS: Emergency Provider Emergency Medicine; PCP Internal Medicine
DX: R51.9 Headache, unspecified (principal); I10 Essential (primary) hypertension; I25.10 Atherosclerotic heart disease of native coronary artery without angina pectoris; Z95.1 Presence of aortocoronary bypass graft; Z79.899 Other long term (current) drug therapy; I25.119 Atherosclerotic heart disease of native coronary artery with unspecified angina pectoris; I25.2 Old myocardial infarction; E78.5 Hyperlipidemia, unspecified
CPT/HCPCS: 70450; 71045; 80048; 84484; 85025; 93005; 93798; 99285; A4216

== ENCOUNTER → 2020-07-13 08:53 | Outpatient (CLI) | payer MEDICARE, OTHER, SELFPAY ==
[2020-06-29 14:15] VITALS: BMI 32.9
[2020-07-04 20:27] VITALS: BMI 32.6
[2020-07-13 10:12] LABS: Hematocrit 45.1 % (40-54); Hemoglobin 14.4 g/dL (13.0-16.5); Mean Corp Hgb Conc 31.9 g/dL (32-36); Mean Corpuscular Volume 81.4 fL (80-94); Mean Platelet Vol. 10.1 fl (6.2-12.0); Platelet Count 161 K/mm3 (150-450); RBC Distribution Width CV 16.7 % (11.6-14.6); RBC Distribution Width SD 50.2 fl (35.1-43.9); Red Blood Count 5.54 M/mm3 (4.6-6.2); White Blood Count 4.8 K/mm3 (4.4-11.0)
[2020-07-13 10:27] LABS: Vitamin D,25 Hydroxy 50.7 ng/mL
[2020-07-13 10:42] LABS: ALB/GLOB Ratio 0.9 RATIO (0.9-2.4); AST(SGOT) 19 U/L (15-37); Alanine Aminotransfer ALT/SGPT 26 U/L (16-61); Albumin, Serum 3.5 g/dL (3.2-5.0); Alkaline Phosphatase 77 U/L (45-117); Anion Gap 7 (5-15); BUN 14 mg/dL (7-18); BUN/Creat Ratio 16.7 RATIO (10-20); CPK Total, Creatine Kinase 73 U/L (39-308); Calcium,Total 8.8 mg/dL (8.5-10.1); Chloride 98 mmol/L (98-107); Cholesterol 112 mg/dL (200); Creatinine, Serum 0.84 mg/dL (0.70-1.30); EST Glomerular Filtration Rate 94 mL/min (>60); Est Glom Filt Rate - Afr Amer 114 mL/min (>60); Globulin 3.9 g/dL (2.2-4.2); Glucose 101 mg/dL (74-106); High Density Lipoprotein 66 mg/dL; PSA,Total - Annual Screen 0.77 ng/mL (0.00-4.00); Potassium 3.8 mmol/L (3.5-5.1); Protein, Total 7.4 g/dL (6.4-8.2); Sodium Level 133 mmol/L (136-145); Thyroid Stim Hormone (TSH) 0.44 uIU/mL (0.358-3.74); Triglycerides 75 mg/dL; Uric Acid 4.9 mg/dL (3.5-7.2); Very Low Density Lipoprotein 15 mg/dL (5-40)
== END ==
PROVIDERS: PCP Internal Medicine; Referring Provider Internal Medicine; Visit Provider Internal Medicine
DX: I25.10 Atherosclerotic heart disease of native coronary artery without angina pectoris (principal); I10 Essential (primary) hypertension; M10.9 Gout, unspecified; R73.9 Hyperglycemia, unspecified; E78.5 Hyperlipidemia, unspecified; E03.9 Hypothyroidism, unspecified; G47.33 Obstructive sleep apnea (adult) (pediatric); E55.9 Vitamin D deficiency, unspecified; Z12.5 Encounter for screening for malignant neoplasm of prostate; I25.119 Atherosclerotic heart disease of native coronary artery with unspecified angina pectoris; I25.2 Old myocardial infarction; Z95.1 Presence of aortocoronary bypass graft
CPT/HCPCS: 36415; 80053; 80061; 82306; 82550; 83036; 84153; 84439; 84443; 84550; 85027; 93798; G0103

== ENCOUNTER 2020-07-13 13:00 | Outpatient (RCR) | payer MEDICARE, OTHER, SELFPAY ==
[2020-06-29 14:15] VITALS: BMI 32.9
[2020-07-11 00:28] VITALS: BP 144/72; BP 158/80
--- NOTE | 2020-07-27 11:17 | CR.ITP_ITS ---
Exercise - Final/Discharge - Visit Date of Eval: 07/27/20 Session #:: 33 - Physician Prescribed Exercise Modalities: Treadmill, Airdyne, NuStep Frequency: 3x/week for 12 weeks [36 sessions] Intensity: 60-80% of age predicted maximum heart rate reserve Current METSs:: 4 Target Heart Rate:: 93-120 Current RPE:: 13-14 Maximum Excercise HR:: 96 Resting Blood Pressure: 118/74 Maximum Exercise Blood Pressure: 148/84 EKG Type: SR with T wave inversion. Rare PVC and PAC - Outcomes & Goals Goals:: Verbalizes understanding of THR, RPE & goal METS by session 6, Documents in home exercise log/reports 30 min aerobic 5 day/wk by DC, Demonstrates accurate pulse taking by DC, Other additional outcome/goals: see below - Intervention & Plan Exercise Program Goals: Instruct on personal THR & RPE, Instruct on MET level & personal MET goal, Show patient to take own pulse /validate performance until accurate, Instruct on home exercise, Other additional plan/int - 30-day Reassessments 30 day Reassessments:: Met - Physical Activity Home Exercise Physical Activity - Home Exercise: Safe Exercise, Warm-up, Self-monitoring, Cool-Down, Home Exercise > 30 min Daily, Sitting Time <3 hours/daily - Outcomes & Goals Outcomes/Goals: Demonstrates correct Warm-up/exercise Cool-Down (S3) if = 2.5 METs, Verbalizes symptoms of exercise intolerance by Session 3 (S3), Demonstrate safe equipment use (S3) & follows exercise prescrition (6), Other: See below - Intervention & Plan Plan/Intervention: Instruct warm-up & cool-down if exercising at > 2 METs, Instruct on symptoms of exercise intolerance & actions to take, Instruct & monitor on saf, Assess intial functional capacity & safety risk, Other See below - 30-day Reassessments 30 day Reassessments:: Met Nutrition - Final Assessment - Program Goals Nutrition Program Goals: LDL <100 optimal. 100 - 129 Near optimal. 130 - 159 Borderline High. 160 - 189 High. Total Cholesterol <200 desirable. 200 - 239 Borderline High. >/= 240 High. HDL < 40 Low >/=60 High. Triglycerides <150 desirable. <199 optimal. VlDL 5 - 40. HgbA1C <7%. BMI <25 Patient has diagnosis of Hyperlipidemia (ICD E78)?: Yes - Visit Date of Assessment:: 07/27/20 Session #:: 33 - Cholesterol/Lipids Determine presence & major risk factors that modify LDL goal: Hypertension or hypertensive medication, Low HDL cholesterol <40 mg/dL*, Family history of premature CHD in Male < 55 years: female <65 yearsFa, Age men > 45 years; women >/= 55 years Outcomes/Goals: Pt IDs own risk factors & lifestyle modifications by Session 10, Verbalizes symptoms of angina & response by session 3., Pt independently manages, Other Additional Outcomes/Goals: Intervention/Plan: Advocate for lipid panel cholesterol medication if applicable, Instruct on personal lipid levels & lipid goals/NCEP guidelines, Instruct on cholesterol, Other additional plan/int 30-day Reassessments:: Met - Weight Mgt (Other Care) Height: 5 ft 11 in Weight:: 107.955 kg BMI: 33.2 Outcomes/Goals: Pt sets, maintains & shows weight loss goal & trend during rehab, Other additional outcomes/goals Intervention/Plan: Instruct on ideal BMI & set weight loss goal w/patient, As sist pt to ID & incorporate diet changes for weight loss by S9, Refer to Structured Weight Loss program as appropriate, Encourage goal of using 250- 300dcal per session for weight loss, Other additional plan/interventions 30 day Reassessments:: Progressing - Healthy Eating Habits Will attend diet classes:: Yes Outcomes/Goals:: Consume diet rich in vegs,fruits,whole grain/high fiber,fish,lean meat, Limit sat/trans fats,cholesterol & added salts & sugars, Other additional outcome/goals: Intervention/Plan:: Assess current eating habits, Other Additional plan/interventions 30-day Reassessments:: Progressing - Education Gave educational materials for:: Signs & symptoms of hypoglycemia, Signs & symptoms of hyperglycemia, Relate diabetes to coronary artery disease, Healthy eating Medical - Final Assessment - Visit Date of Eval: 07/27/20 Session #:: 33 - Medication Compliance Preventative Medication(s):: Aspirin, Statin/lipid, Beta shad H/O mental health issues: depression, anxiety, or addiction?: Yes Doesn?t believe in the benefits of treatment?: No Believes medications are unnecessary or harmful?: No Has a concern about medication side effects?: No Expresses concern over the cost of medications?: No Outcomes/Goals: Verbalizes medications,desired effect & common side effects @ DC, Pt self-reports following medication regimen, Keeps card in wallet w/medications listed by DC, Other additional outcome/goals: Interventions/plans: Instruct on medication effects & side effects, Review medication list w/patient every two weeks, Instruct importance of taking meds as ordered & assist problem solving, Other additional 30-day Reassessments:: Met - Tobacco Use Tobacco Use: Non-smoker Do you use smokeless tobacco?: No - Hypertension Hypertension Diagnosis:: Hypertension ICD-10 I10 Resting Blood Pressure:: 118/74 [place] [employer] Hypertension Guidelines: [place] [employer] Hypertension Guidelines. Normal BP Less than 120/80. Elevated BP 120/80. Hypertension Stage 1: BP 130-139/80-89. Hypertesnion Stage 2: BP 140 or higher/90 or higher. Hypertension Crisis: BP higher than 180/120 Peak Exercise Blood Pressure:: 148/84 Outcomes/Goals: Able to verbalize/achieve optimal blood pressure <130/80, Incorporates diet changes & exercise for blood pressure control by DC, Other additional outcomes/goals Interventions/plan: Instruct on optimal blood pressure, hypertension & medications, Instruct on effects of sodium, alcohol, stress, exercise &hypertension, Other additional plan/interventions 30 day Reassessments:: Met - Tobacco Cessation Referral Smoking Cessation Referral:: No Individual Education/Counseling:: No Education Schedule Given:: Yes Psychosocial - Final Assessmen - VIsit Date of Eval: 07/27/20 Session #:: 33 History of previous Mental disease:: Yes History of Emotional Disorders: Anxious, Depression - Target Goals Target Goals: Assess presence or absence of depression. Using a valid screening tool, maximizes coping skills. Positive support system - Psychosocial Test phq-9 Severity: Severity. 1-4 Minimal Depression. 5-9 Mild Depression. 10-14 Moderate Depression. 15-19 Moderately Sever Depression. 20-27 Severe Depression. Rule: - Outcomes/Goals: See list Psychosocial Outcomes/Goals:: ID's personal stressors & 2 strategies to manage stress by discharge, Other Additional outcome/goals: - Intervention/Plan: See List Interventions/Plan:: Assess stressors,coping strategies & signs of derpression on admission, Instruct/assist pt to develop coping & personal stress Mgt strategies, Refer to Behavioral Health if appropriate, Refer to Physician if appropriate, Instruct patient to recognize signs & symptoms of depression, Instruct patient to recog, Other additional plan/intervention - 30-day Reassessments: 30 day Reassessments:: Met Patient Health Questionnaire Discharge Assessment 1. Little interest or pleasure in doing things: Several days 2. Feeling down, depressed, or hopeless: Not at all 3. Trouble falling or staying asleep, or sleeping too much: Not at all 4. Feeling tired or having little energy: More than half the days 5. Poor appetite or overeating: Not at all 6. Feeling bad about yourself -- or that you are a failure or have let yourself or your family down: Not at all 7. Trouble concentrating on things, such as reading the newspaper or watching television: Not at all 8. Moving or speaking so slowly that other people could have noticed. Or the opposite - being so fidgety or restless that you have been moving around a lot more than usual: Not at all 9. Thoughts that you would be better off , or of hurting yourself in some way: Not at all How difficult have these problems made it for you to do your work, take care of things at home, or get along with other people?: Somewhat difficult Total Score: 3 SLIM-Q SV Test - Statements CAD is a disease of the arteries in the heart: False Examples of risk factors for heart disease: True Angina is chest pain or discomfort: True The benefits of resistance training include: True Eating more meat and dairy products: False Anti-platelet medications such as aspirin are important: True The only effective way to manage stress: False An exercise warm-up slowly increases heart rate: True Prepared, processed foods usually have high sodium: True Depression is common after a heart attack: True The statin medications lower cholesterol: True To control blood pressure, lower the amount of sodium: True If someone gets chest discomfort during walking: False Transfats are partially hydrogenated vegetable oils: True Sleep apnea that is not treated increases the risk: True To control cholesterol, one should become a vegetarian: True Someone knows if he/she is exercising at the right level: True Diabetes cannot be prevented with exercise & health eating: False Stress is a large risk for heart attack: True A diet that can help lower blood pressure is rich in: True - Total Score Total Correct Responses: 18 Self-Efficacy Discharge Assessment We would like to know how confident you are in doing certain activities. Please select your confidence level for:: Select your confidence level for the following using the scale 1-10 where 1 is not at all confident and 10 is totally confident. Your score is the average of all 6 responses. Fatigue: How confident are you that you can keep the fatigue caused by your disease from interfering with the things you want to do? Select Number: 8 Physical Discomfort or Pain: How confident are you that you can keep the physical discomfort or pain of your disease from interfering with the things you want to do? Select Number: 9 Emotional Distress: How confident are you that you can keep the emotional distress caused by your disease from interfering with the things you want to do? Select Number: 9 Other Symptoms or Health Problems: How confident are you that you can keep other symptoms or health problems from interfering with the things you want to do? Select Number: 10 Different Tasks and Activities: How confident are you that you can do the different tasks and activities needed to manage your health condition so as to reduce your need to see a doctor? Select Number: 10 Medication: How confident are you that you can do things other than just taking medication to reduce how much your illness affects your everyday life? Select Number: 10 Total Score:: 9 Nutrition Survey - Nutrition Survey Instructions Scoring Instructions: Scoring is as follows: Yes = 1 points. No = 0 point. Patient score that is >/=12 is considered to be at potential nutritional risk and could benefit from a referral to a registered dietitian. - Nutrition Survey Discharge Have you lost >10 lbs over the past 2 months without trying?: Yes Are you following a special diet at home for diabetes, low fat, or low salt?: No Are you interested in meeting with a dietitian for help understanding your diet?: No Do you eat less than 3 meals a day?: No Do you eat fatty meats (gomez, sausage, ribs, etc), fried foods, desserts, large amounts of salad dressings, margarine, butter, or cheese most days?: No Do you have food allergies? [Enter types in comment field]: Yes Do you eat in restaurants more than 3 times a week?: No Do you season food with salt, seasoning salt, or garlic salt?: No Do you used canned, boxed, frozen meals, or soups, seasoning packets?: No Total Score:: 2
[2020-07-27 11:30] VITALS: BP 118/74; BP 148/84; BMI 33.2
== END 2020-08-10 23:59 ==
LOC: CR 13:00
PROVIDERS: PCP Internal Medicine; Referring Provider Internal Medicine Cardiovascular Disease; Visit Provider Internal Medicine Cardiovascular Disease
DX: Z95.1 Presence of aortocoronary bypass graft (principal); I25.119 Atherosclerotic heart disease of native coronary artery with unspecified angina pectoris; I25.2 Old myocardial infarction; I10 Essential (primary) hypertension; E78.5 Hyperlipidemia, unspecified
CPT/HCPCS: 93798

== ENCOUNTER → 2020-09-07 15:38 | Outpatient (CLI) | payer MEDICARE, OTHER, SELFPAY ==
[2020-07-28 14:00] VITALS: BMI 33.3
[2020-09-07 18:30] LABS: Anion Gap 5 (5-15); BUN 21 mg/dL (7-18); BUN/Creat Ratio 18.9 RATIO (10-20); Calcium,Total 8.8 mg/dL (8.5-10.1); Chloride 98 mmol/L (98-107); Creatinine, Serum 1.11 mg/dL (0.70-1.30); EST Glomerular Filtration Rate 68 mL/min (>60); Est Glom Filt Rate - Afr Amer 82 mL/min (>60); Glucose 89 mg/dL (74-106); Potassium 3.8 mmol/L (3.5-5.1); Sodium Level 132 mmol/L (136-145)
== END ==
PROVIDERS: PCP Internal Medicine; Referring Provider Nurse Practitioner Family; Visit Provider Nurse Practitioner Family
DX: R60.9 Edema, unspecified (principal)
CPT/HCPCS: 36415; 80048

== ENCOUNTER → 2020-12-23 09:12 | Outpatient (CLI) | payer MEDICARE, OTHER, SELFPAY ==
[2020-07-28 14:00] VITALS: BMI 33.3
[2020-12-23 12:53] LABS: AST(SGOT) 27 U/L (15-37); Alanine Aminotransfer ALT/SGPT 38 U/L (16-61); Albumin, Serum 3.9 g/dL (3.2-5.0); Alkaline Phosphatase 68 U/L (45-117); Anion Gap 6 (5-15); BUN 16 mg/dL (7-18); BUN/Creat Ratio 16.1 RATIO (10-20); Calcium,Total 8.7 mg/dL (8.5-10.1); Chloride 98 mmol/L (98-107); Creatinine, Serum 0.99 mg/dL (0.70-1.30); EST Glomerular Filtration Rate 78 mL/min (>60); Est Glom Filt Rate - Afr Amer 94 mL/min (>60); Globulin 3.9 g/dL (2.2-4.2); Glucose 107 mg/dL (74-106); Potassium 3.5 mmol/L (3.5-5.1); Protein, Total 7.8 g/dL (6.4-8.2); Sodium Level 132 mmol/L (136-145); Thyroid Stim Hormone (TSH) 1.14 uIU/mL (0.358-3.74)
== END ==
PROVIDERS: PCP Internal Medicine; Referring Provider Internal Medicine Endocrinology, Diabetes & Metabolism; Visit Provider Internal Medicine Endocrinology, Diabetes & Metabolism
DX: E03.8 Other specified hypothyroidism (principal); E83.42 Hypomagnesemia
CPT/HCPCS: 36415; 80053; 83735; 84443

== ENCOUNTER → 2021-02-23 08:35 | Outpatient (CLI) | payer MEDICARE, OTHER, SELFPAY ==
[2021-02-23 10:38] LABS: Absolute Lymphocyte Count 1.77 X10^3/uL (0.83-4.51); Absolute Neutrophil Count 3.2 X10^3/uL (2.0-7.7); Basophil# 0.04 X10^3/uL; Basophil% 0.7 % (0-1); Eosinophil# 0.18 X10^3/uL; Eosinophils% 2.9 % (0-5); Hematocrit 42.2 % (40-54); Hemoglobin 14.3 g/dL (13.0-16.5); Lymphocyte # 1.77 X10^3/ul (0.83-4.51); Lymphocyte % 28.8 % (19-41); Mean Corp Hgb Conc 33.9 g/dL (32-36); Mean Corpuscular Hgb 29.5 pg (27.0-32.0); Mean Corpuscular Volume 87.2 fL (80-94); Mean Platelet Vol. 10.5 fl (6.2-12.0); Monocyte% 14.7 % (0-10); NRBC Flagged by Analyzer 0 % (0-5); Neutrophil # 3.24 X10^3/uL (2.7-7.7); Neutrophil % 52.7 % (47-70); Platelet Count 185 K/mm3 (150-450); RBC Distribution Width CV 13.7 % (11.6-14.6); RBC Distribution Width SD 43.8 fl (35.1-43.9); Red Blood Count 4.84 M/mm3 (4.6-6.2); White Blood Count 6.1 K/mm3 (4.4-11.0)
[2021-02-23 10:55] LABS: Vitamin D,25 Hydroxy 61.4 ng/mL
[2021-02-23 10:58] LABS: Hemoglobin A1c 5.9 % (3.8-5.6)
[2021-02-23 11:25] LABS: ALB/GLOB Ratio 0.9 RATIO (0.9-2.4); AST(SGOT) 21 U/L (15-37); Alanine Aminotransfer ALT/SGPT 35 U/L (16-61); Albumin, Serum 3.6 g/dL (3.2-5.0); Alkaline Phosphatase 74 U/L (45-117); Anion Gap 6 (5-15); BUN 25 mg/dL (7-18); BUN/Creat Ratio 25.8 RATIO (10-20); Calcium,Total 8.5 mg/dL (8.5-10.1); Chloride 100 mmol/L (98-107); Cholesterol 106 mg/dL (200); Creatinine, Serum 0.97 mg/dL (0.70-1.30); EST Glomerular Filtration Rate 80 mL/min (>60); Est Glom Filt Rate - Afr Amer 96 mL/min (>60); Glucose 106 mg/dL (74-106); High Density Lipoprotein 61 mg/dL; Potassium 3.6 mmol/L (3.5-5.1); Protein, Total 7.6 g/dL (6.4-8.2); Sodium Level 135 mmol/L (136-145); T4 Free Direct 1.13 ng/dL (0.76-1.46); Thyroid Stim Hormone (TSH) 0.78 uIU/mL (0.358-3.74); Triglycerides 67 mg/dL; Very Low Density Lipoprotein 13 mg/dL (5-40)
== END ==
PROVIDERS: PCP Internal Medicine; Referring Provider Internal Medicine; Visit Provider Internal Medicine
DX: Z00.00 Encounter for general adult medical examination without abnormal findings (principal); I10 Essential (primary) hypertension; R73.9 Hyperglycemia, unspecified; E78.5 Hyperlipidemia, unspecified; E03.9 Hypothyroidism, unspecified; E55.9 Vitamin D deficiency, unspecified; Z13.31 Encounter for screening for depression; Z13.9 Encounter for screening, unspecified
CPT/HCPCS: 36415; 80053; 80061; 82306; 83036; 84439; 84443; 85025

== ENCOUNTER 2021-06-13 10:00 | Outpatient (RCR) | payer SELFPAY | END 2021-06-13 19:00 | disposition home or self-care (01) | LOC: MASS 10:00 | PROVIDERS: Family Provider Internal Medicine; PCP Internal Medicine | DX: R69 Illness, unspecified (principal) ==

== ENCOUNTER 2021-08-04 11:14 | Outpatient (CLI) | payer MEDICARE, OTHER, SELFPAY ==
[2021-08-04 12:37] LABS: Vitamin D,25 Hydroxy 61.7 ng/mL
[2021-08-04 12:48] LABS: ALB/GLOB Ratio 0.9 RATIO (0.9-2.4); AST(SGOT) 22 U/L (15-37); Alanine Aminotransfer ALT/SGPT 29 U/L (16-61); Albumin, Serum 3.6 g/dL (3.2-5.0); Alkaline Phosphatase 82 U/L (45-117); Anion Gap 4 (5-15); BUN 22 mg/dL (7-18); BUN/Creat Ratio 21.6 RATIO (10-20); Calcium,Total 8.7 mg/dL (8.5-10.1); Chloride 103 mmol/L (98-107); Creatinine, Serum 1.02 mg/dL (0.70-1.30); EST Glomerular Filtration Rate 75 mL/min (>60); Est Glom Filt Rate - Afr Amer 91 mL/min (>60); Globulin 3.8 g/dL (2.2-4.2); Glucose 125 mg/dL (74-106); Potassium 3.8 mmol/L (3.5-5.1); Protein, Total 7.4 g/dL (6.4-8.2); Sodium Level 136 mmol/L (136-145)
== END 2021-08-04 23:59 | disposition home or self-care (01) ==
LOC: MTLAB 11:15
PROVIDERS: PCP Internal Medicine; Referring Provider Internal Medicine Endocrinology, Diabetes & Metabolism; Visit Provider Internal Medicine Endocrinology, Diabetes & Metabolism
DX: E03.8 Other specified hypothyroidism (principal); E55.9 Vitamin D deficiency, unspecified
CPT/HCPCS: 36415; 80053; 82306; 84443

== ENCOUNTER → 2022-01-25 | Outpatient (CLI) | payer MEDICARE, OTHER, SELFPAY ==
[2022-01-25 10:12] LABS: Absolute Lymphocyte Count 1.68 X10^3/uL (0.83-4.51); Absolute Neutrophil Count 3.7 X10^3/uL (2.0-7.7); Basophil# 0.04 X10^3/uL; Basophil% 0.6 % (0-1); Eosinophil# 0.34 X10^3/uL; Eosinophils% 5.1 % (0-5); Hematocrit 45.6 % (40-54); Hemoglobin 15.3 g/dL (13.0-16.5); Lymphocyte # 1.68 X10^3/ul (0.83-4.51); Mean Corp Hgb Conc 33.6 g/dL (32-36); Mean Corpuscular Hgb 29.7 pg (27.0-32.0); Mean Corpuscular Volume 88.5 fL (80-94); Mean Platelet Vol. 9.8 fl (6.2-12.0); Monocyte# 0.97 X10^3/uL; Monocyte% 14.5 % (0-10); NRBC Flagged by Analyzer 0 % (0-5); Neutrophil # 3.65 X10^3/uL (2.7-7.7); Neutrophil % 54.4 % (47-70); Platelet Count 199 K/mm3 (150-450); RBC Distribution Width CV 13.7 % (11.6-14.6); RBC Distribution Width SD 44.2 fl (35.1-43.9); Red Blood Count 5.15 M/mm3 (4.6-6.2); White Blood Count 6.7 K/mm3 (4.4-11.0)
[2022-01-25 10:27] LABS: PSA,Total - Annual Screen 0.68 ng/mL (0.00-4.00)
[2022-01-25 10:30] LABS: Hemoglobin A1c 6.2 % (3.8-5.6)
[2022-01-25 10:34] LABS: ALB/GLOB Ratio 0.9 RATIO (0.9-2.4); AST(SGOT) 23 U/L (15-37); Alanine Aminotransfer ALT/SGPT 40 U/L (16-61); Albumin, Serum 3.6 g/dL (3.2-5.0); Alkaline Phosphatase 85 U/L (45-117); Anion Gap 7 (5-15); BUN 21 mg/dL (7-18); BUN/Creat Ratio 21.6 RATIO (10-20); Calcium,Total 8.4 mg/dL (8.5-10.1); Chloride 101 mmol/L (98-107); Cholesterol 113 mg/dL (200); Creatinine, Serum 0.97 mg/dL (0.70-1.30); EST Glomerular Filtration Rate 79 mL/min (>60); Est Glom Filt Rate - Afr Amer 96 mL/min (>60); Globulin 3.8 g/dL (2.2-4.2); Glucose 111 mg/dL (74-106); High Density Lipoprotein 67 mg/dL; Potassium 3.9 mmol/L (3.5-5.1); Protein, Total 7.4 g/dL (6.4-8.2); Sodium Level 134 mmol/L (136-145); T4 Free Direct 1.02 ng/dL (0.76-1.46); Thyroid Stim Hormone (TSH) 1.19 uIU/mL (0.358-3.74); Triglycerides 84 mg/dL; Very Low Density Lipoprotein 17 mg/dL (5-40)
== END | disposition home or self-care (01) ==
PROVIDERS: PCP Internal Medicine; Referring Provider Internal Medicine; Visit Provider Internal Medicine
DX: R73.9 Hyperglycemia, unspecified (principal); E78.5 Hyperlipidemia, unspecified; E03.9 Hypothyroidism, unspecified; I10 Essential (primary) hypertension; Z12.5 Encounter for screening for malignant neoplasm of prostate
CPT/HCPCS: 36415; 80053; 80061; 83036; 84153; 84439; 84443; 85025; G0103

== ENCOUNTER → 2022-02-06 | Outpatient (CLI) | payer MEDICARE, OTHER, SELFPAY ==
--- NOTE | 2022-02-06 13:31 | ECHOCS_ITS ---
Reason For Study: Aortic Stenosis Procedure This was a 2D Doppler, Color Flow transthoracic echocardiogram. The study was technically difficult. Contrast injection was performed. Exam performed in department. Left Ventricle Normal LV size. Left ventricular systolic function is normal. The estimated ejection fraction is 55 %. Septal motion consistent with IVCD. Stage 1 diastolic dysfunction. No regional wall motion abnormalities noted. Right Ventricle Normal RV size. The right ventricle is normal in size, function, and thickness. Atria The left atrium is mildly enlarged. Normal right atrium. No doppler evidence for ASD. Mitral Valve There is mild to moderate mitral annular calcification. Normal mitral valve. Trivial mitral valve insufficiency. Tricuspid Valve Normal tricuspid valve. Mild to moderate (1-2+) tricuspid valve insufficiency. Right ventricular systolic pressure estimated to be 28 mmHg. Aortic Valve Trisinus/trileaflet aortic valve. Moderate focal aortic valve calcification. Mild aortic stenosis. Trivial aortic valve insufficiency. Pulmonic Valve The pulmonic valve is not well visualized. Great Vessels Borderline enlarged aortic root. Pericardium/Pleural No pericardial effusion. Medication 22 gauge I.V. with prn adaptor inserted into right arm. Diluted definity 2ml given slow IV push to enhance endocardial definition. MMode/2D Measurements & Calculations LVIDd: 6.0 cm IVSd: 0.95 cm LVOT diam: 2.2 cm LVIDs: 4.9 cm LVPWd: 0.81 cm RVDd: 3.4 cm FS: 18.3 % LVOT area: 3.9 cm2 Ao root diam: 3.9 cm LAV(MOD-bp): 105.4 ml LVAd ap4: 37.2 cm2 LAV(MOD-bp) Indexed: 44.9 ml/m2 LVLd ap4: 9.0 cm LAV(MOD-sp2): 72.3 ml EDV(MOD-sp4): 127.4 ml LAV(MOD-sp4): 137.0 ml EDV(sp4-el): 131.2 ml LVAs ap4: 20.8 cm2 LVLs ap4: 7.7 cm ESV(MOD-sp4): 49.5 ml ESV(sp4-el): 47.7 ml EF(MOD-sp4): 61.1 % EF(sp4-el): 63.6 % SV(MOD-sp4): 77.9 ml SV(sp4-el): 83.4 ml LA A4 area: 32.1 cm2 LA dimension(2D): 4.6 cm RA A4 area: 16.2 cm2 Time Measurements MV dec time: 0.21 sec Doppler Measurements & Calculations MV E max elia: 62.9 cm/sec Lat Peak E' Elia: 10.8 cm/sec Med Peak E' Elia: 3.9 cm/sec MV A max elia: 74.3 cm/sec E/E' lat: 5.8 E/E' med: 16.2 MV E/A: 0.85 MV V2 max: 58.0 cm/sec MV dec slope: 293.4 cm/sec2 Ao V2 max: 233.7 cm/sec MV max P.3 mmHg Ao max P.9 mmHg MV V2 mean: 31.0 cm/sec Ao V2 mean: 169.8 cm/sec MV mean P.50 mmHg Ao mean P.9 mmHg MV V2 VTI: 27.9 cm Ao V2 VTI: 56.4 cm MVA(VTI): 3.2 cm2 ANGELIQUE(I,D): 1.6 cm2 ANGELIQUE(V,D): 1.5 cm2 AI max elia: 347.1 cm/sec LV V1 max: 87.1 cm/sec SV(LVOT): 90.0 ml AI max P.2 mmHg LV V1 max P.0 mmHg LV V1 mean P.7 mmHg AI dec slope: 123.6 cm/sec2 LV V1 mean: 60.2 cm/sec AI P1/2t: 822.8 msec LV V1 VTI: 23.1 cm PA V2 max: 71.4 cm/sec TR max elia: 251.3 cm/sec PA V2 mean: 35.2 cm/sec TR max P.3 mmHg ECHO/Echo Complete W/ Contrast Interpretation Summary The study was technically difficult. Contrast injection was performed. Left ventricular systolic function is normal. The estimated ejection fraction is 55 %. Septal motion consistent with IVCD. The left atrium is mildly enlarged. There is mild to moderate mitral annular calcification. Trivial mitral valve insufficiency. Mild to moderate (1-2+) tricuspid valve insufficiency. Mild aortic stenosis. Trivial aortic valve insufficiency. Borderline enlarged aortic root. Stage 1 diastolic dysfunction. Ordering Physician: Priya Chin Referring Physician: Priya Chin Performed By: Luma Yee RCS
== END | disposition home or self-care (01) ==
LOC: CVS 13:29
PROVIDERS: PCP Internal Medicine; Referring Provider Internal Medicine; Visit Provider Internal Medicine
DX: I35.0 Nonrheumatic aortic (valve) stenosis (principal)
CPT/HCPCS: 93306; Q9957; A4216; C8929

== ENCOUNTER → 2022-04-30 | Outpatient (CLI) | payer MEDICARE, OTHER, SELFPAY ==
[2022-04-30 18:01] LABS: Vitamin D,25 Hydroxy 64.3 ng/mL
[2022-04-30 18:04] LABS: AST(SGOT) 25 U/L (15-37); Alanine Aminotransfer ALT/SGPT 42 U/L (16-61); Albumin, Serum 3.5 g/dL (3.2-5.0); Alkaline Phosphatase 82 U/L (45-117); Anion Gap 6 (5-15); BUN 29 mg/dL (7-18); BUN/Creat Ratio 24.2 RATIO (10-20); Calcium,Total 8.8 mg/dL (8.5-10.1); Chloride 107 mmol/L (98-107); EST Glomerular Filtration Rate 62 mL/min (>60); Est Glom Filt Rate - Afr Amer 75 mL/min (>60); Globulin 3.4 g/dL (2.2-4.2); Glucose 139 mg/dL (74-106); Potassium 3.7 mmol/L (3.5-5.1); Protein, Total 6.9 g/dL (6.4-8.2); Sodium Level 143 mmol/L (136-145); Thyroid Stim Hormone (TSH) 0.79 uIU/mL (0.358-3.74)
== END | disposition home or self-care (01) ==
LOC: MTLAB 15:58
PROVIDERS: PCP Internal Medicine; Referring Provider Internal Medicine Endocrinology, Diabetes & Metabolism; Visit Provider Internal Medicine Endocrinology, Diabetes & Metabolism
DX: E03.8 Other specified hypothyroidism (principal); E55.9 Vitamin D deficiency, unspecified
CPT/HCPCS: 36415; 80053; 82306; 84443

== ENCOUNTER → 2022-12-24 | Outpatient (CLI) | payer MEDICARE, OTHER, SELFPAY ==
[2022-12-24 15:41] LABS: Vitamin D,25 Hydroxy 88.1 ng/mL
[2022-12-24 15:45] LABS: ALB/GLOB Ratio 0.9 RATIO (0.9-2.4); AST(SGOT) 24 U/L (15-37); Alanine Aminotransfer ALT/SGPT 46 U/L (16-61); Albumin, Serum 3.5 g/dL (3.2-5.0); Alkaline Phosphatase 78 U/L (45-117); Anion Gap 6 (5-15); BUN 28 mg/dL (7-18); Calcium,Total 8.9 mg/dL (8.5-10.1); Chloride 103 mmol/L (98-107); EST Glomerular Filtration Rate 76 mL/min (>60); Est Glom Filt Rate - Afr Amer 92 mL/min (>60); Globulin 3.8 g/dL (2.2-4.2); Glucose 140 mg/dL (74-106); Magnesium 2.1 mg/dL (1.6-2.6); Potassium 3.5 mmol/L (3.5-5.1); Protein, Total 7.3 g/dL (6.4-8.2); Sodium Level 139 mmol/L (136-145); Thyroid Stim Hormone (TSH) 1.08 uIU/mL (0.358-3.74)
== END | disposition home or self-care (01) ==
LOC: MTLAB 14:03
PROVIDERS: PCP Internal Medicine; Referring Provider Nurse Practitioner Adult Health; Visit Provider Nurse Practitioner Adult Health
DX: E03.8 Other specified hypothyroidism (principal); E55.9 Vitamin D deficiency, unspecified
CPT/HCPCS: 36415; 80053; 82306; 83735; 84443

== ENCOUNTER → 2023-02-01 | Outpatient (CLI) | payer MEDICARE, OTHER, SELFPAY ==
[2023-02-01 12:23] LABS: Absolute Lymphocyte Count 1.58 X10^3/uL (0.83-4.51); Absolute Neutrophil Count 3.7 X10^3/uL (2.0-7.7); Basophil# 0.03 X10^3/uL; Basophil% 0.5 % (0-1); Eosinophil# 0.43 X10^3/uL; Eosinophils% 6.7 % (0-5); Hematocrit 42.6 % (40-54); Hemoglobin 14.2 g/dL (13.0-16.5); Lymphocyte # 1.58 X10^3/ul (0.83-4.51); Lymphocyte % 24.5 % (19-41); Mean Corp Hgb Conc 33.3 g/dL (32-36); Mean Corpuscular Volume 89.9 fL (80-94); Mean Platelet Vol. 10.9 fl (6.2-12.0); Monocyte# 0.74 X10^3/uL; Monocyte% 11.5 % (0-10); NRBC Flagged by Analyzer 0 % (0-5); Neutrophil # 3.65 X10^3/uL (2.7-7.7); Neutrophil % 56.5 % (47-70); Platelet Count 182 K/mm3 (150-450); RBC Distribution Width CV 14.2 % (11.6-14.6); RBC Distribution Width SD 46.8 fl (35.1-43.9); Red Blood Count 4.74 M/mm3 (4.6-6.2); White Blood Count 6.5 K/mm3 (4.4-11.0)
[2023-02-01 13:00] LABS: Hemoglobin A1c 6.3 % (3.8-5.6)
[2023-02-01 13:35] LABS: ALB/GLOB Ratio 0.9 RATIO (0.9-2.4); AST(SGOT) 32 U/L (15-37); Alanine Aminotransfer ALT/SGPT 49 U/L (16-61); Albumin, Serum 3.5 g/dL (3.2-5.0); Alkaline Phosphatase 63 U/L (45-117); Anion Gap 5 (5-15); BUN 28 mg/dL (7-18); BUN/Creat Ratio 27.2 RATIO (10-20); Calcium,Total 8.8 mg/dL (8.5-10.1); Chloride 106 mmol/L (98-107); Cholesterol 118 mg/dL (200); Creatinine, Serum 1.03 mg/dL (0.70-1.30); EST Glomerular Filtration Rate 74 mL/min (>60); Est Glom Filt Rate - Afr Amer 89 mL/min (>60); Globulin 3.8 g/dL (2.2-4.2); Glucose 128 mg/dL (74-106); High Density Lipoprotein 46 mg/dL; PSA,Total - Annual Screen 0.57 ng/mL (0.00-4.00); Potassium 3.2 mmol/L (3.5-5.1); Protein, Total 7.3 g/dL (6.4-8.2); Sodium Level 140 mmol/L (136-145); T4 Free Direct 0.99 ng/dL (0.76-1.46); Thyroid Stim Hormone (TSH) 0.85 uIU/mL (0.358-3.74); Triglycerides 111 mg/dL; Uric Acid 8.3 mg/dL (3.5-7.2); Very Low Density Lipoprotein 22 mg/dL (5-40)
== END | disposition home or self-care (01) ==
LOC: MTLAB 09:40
PROVIDERS: PCP Internal Medicine; Referring Provider Internal Medicine; Visit Provider Internal Medicine
DX: Z12.5 Encounter for screening for malignant neoplasm of prostate (principal); I10 Essential (primary) hypertension; E78.5 Hyperlipidemia, unspecified; E03.9 Hypothyroidism, unspecified; R73.9 Hyperglycemia, unspecified; E55.9 Vitamin D deficiency, unspecified; M10.9 Gout, unspecified
CPT/HCPCS: 36415; 80053; 80061; 82306; 83036; 84153; 84439; 84443; 84550; 85025; G0103

== ENCOUNTER → 2023-06-10 | Outpatient (CLI) | payer MEDICARE, OTHER, SELFPAY ==
[2023-06-10 07:19] LABS: Anion Gap 3 (5-15); BUN 23 mg/dL (7-18); BUN/Creat Ratio 20.7 RATIO (10-20); Calcium,Total 8.7 mg/dL (8.5-10.1); Chloride 109 mmol/L (98-107); Creatinine, Serum 1.11 mg/dL (0.70-1.30); EST Glomerular Filtration Rate 68 mL/min (>60); Est Glom Filt Rate - Afr Amer 82 mL/min (>60); Glucose 171 mg/dL (74-106); Potassium 3.8 mmol/L (3.5-5.1); Sodium Level 141 mmol/L (136-145)
[2023-06-10 08:20] LABS: Vitamin D,25 Hydroxy 78.8 ng/mL
[2023-06-10 08:22] LABS: Hemoglobin A1c 5.9 % (3.8-5.6)
== END | disposition home or self-care (01) ==
LOC: LAB 06:13
PROVIDERS: PCP Internal Medicine; Referring Provider Internal Medicine; Visit Provider Internal Medicine
DX: E87.6 Hypokalemia (principal); R73.9 Hyperglycemia, unspecified; M10.9 Gout, unspecified; E55.9 Vitamin D deficiency, unspecified
CPT/HCPCS: 36415; 80048; 82306; 83036; 84550

== ENCOUNTER → 2023-06-25 | Outpatient (CLI) | payer MEDICARE, OTHER, SELFPAY ==
--- NOTE | 2023-06-25 13:45 | RAD_ITS ---
INDICATION: radiculopathy affecting the lumbosacral region of the spine EXAMINATION/TECHNIQUE: X-RAY - XR Spine Lumbar Comp W/ Bending Min 6 Views COMPARISON: Not available FINDINGS: VERTEBRAE: Preserved vertebral body height. No fracture. There is grade 1 retrolisthesis of L2 on L3. Preservation of the normal lumbar lordosis. There is multilevel facet arthrosis. There is multilevel osteophyte formation. DISCS: There is multilevel disc space narrowing. INCLUDED ABDOMEN: Included bowel gas pattern is non-obstructive. RAD/L/S Spine Comp/w Bending Views IMPRESSION: Degenerative changes and spondylolisthesis as described. Electronically Signed: Hang Castellano, at 17:35 EST ,
== END | disposition home or self-care (01) ==
PROVIDERS: PCP Internal Medicine; Referring Provider Anesthesiology Pain Medicine; Visit Provider Anesthesiology Pain Medicine
DX: M54.17 Radiculopathy, lumbosacral region (principal)
CPT/HCPCS: 72114

== ENCOUNTER → 2023-08-07 | Outpatient (CLI) | payer MEDICARE, OTHER, SELFPAY ==
[2023-08-07 12:59] LABS: Vitamin D,25 Hydroxy 63.2 ng/mL
[2023-08-07 13:26] LABS: ALB/GLOB Ratio 0.9 RATIO (0.9-2.4); AST(SGOT) 39 U/L (15-37); Alanine Aminotransfer ALT/SGPT 62 U/L (16-61); Albumin, Serum 3.4 g/dL (3.2-5.0); Alkaline Phosphatase 74 U/L (45-117); Anion Gap 9 (5-15); BUN 23 mg/dL (7-18); BUN/Creat Ratio 21.3 RATIO (10-20); Calcium,Total 8.7 mg/dL (8.5-10.1); Chloride 104 mmol/L (98-107); Creatinine, Serum 1.08 mg/dL (0.70-1.30); EST Glomerular Filtration Rate 70 mL/min (>60); Est Glom Filt Rate - Afr Amer 84 mL/min (>60); Globulin 3.6 g/dL (2.2-4.2); Glucose 116 mg/dL (74-106); Potassium 3.6 mmol/L (3.5-5.1); Sodium Level 137 mmol/L (136-145); Thyroid Stim Hormone (TSH) 1.36 uIU/mL (0.358-3.74)
== END | disposition home or self-care (01) ==
LOC: MTLAB 10:48
PROVIDERS: PCP Internal Medicine; Referring Provider Internal Medicine Endocrinology, Diabetes & Metabolism; Visit Provider Internal Medicine Endocrinology, Diabetes & Metabolism
DX: E03.9 Hypothyroidism, unspecified (principal); E55.9 Vitamin D deficiency, unspecified
CPT/HCPCS: 36415; 80053; 82306; 84443

== ENCOUNTER → 2023-10-04 | Outpatient (CLI) | payer MEDICARE, OTHER, SELFPAY ==
[2023-10-04 10:36] LABS: Absolute Neutrophil Count 3.1 X10^3/uL (2.0-7.7); Basophil# 0.05 X10^3/uL; Basophil% 0.8 % (0-1); Eosinophil# 0.54 X10^3/uL; Eosinophils% 8.1 % (0-5); Hematocrit 42.2 % (40-54); Lymphocyte % 31.6 % (19-41); Mean Corp Hgb Conc 33.2 g/dL (32-36); Mean Corpuscular Hgb 29.3 pg (27.0-32.0); Mean Corpuscular Volume 88.3 fL (80-94); Mean Platelet Vol. 10.8 fl (6.2-12.0); Monocyte# 0.88 X10^3/uL; Monocyte% 13.2 % (0-10); NRBC Flagged by Analyzer 0 % (0-5); Neutrophil # 3.06 X10^3/uL (2.7-7.7); Platelet Count 181 K/mm3 (150-450); RBC Distribution Width SD 45.6 fl (35.1-43.9); Red Blood Count 4.78 M/mm3 (4.6-6.2); White Blood Count 6.7 K/mm3 (4.4-11.0)
[2023-10-04 10:58] LABS: Hemoglobin A1c 6.1 % (3.8-5.6)
[2023-10-04 11:14] LABS: AST(SGOT) 26 U/L (15-37); Alanine Aminotransfer ALT/SGPT 43 U/L (16-61); Albumin, Serum 3.5 g/dL (3.2-5.0); Alkaline Phosphatase 70 U/L (45-117); Anion Gap 8 (5-15); BUN 17 mg/dL (7-18); BUN/Creat Ratio 17.1 RATIO (10-20); Calcium,Total 8.9 mg/dL (8.5-10.1); Chloride 105 mmol/L (98-107); Cholesterol 122 mg/dL (200); EST Glomerular Filtration Rate 77 mL/min (>60); Est Glom Filt Rate - Afr Amer 93 mL/min (>60); Globulin 3.5 g/dL (2.2-4.2); Glucose 114 mg/dL (74-106); High Density Lipoprotein 57 mg/dL; Potassium 3.6 mmol/L (3.5-5.1); Sodium Level 136 mmol/L (136-145); T4 Free Direct 1.02 ng/dL (0.76-1.46); Thyroid Stim Hormone (TSH) 1.61 uIU/mL (0.358-3.74); Triglycerides 123 mg/dL; Uric Acid 7.4 mg/dL (3.5-7.2); Very Low Density Lipoprotein 25 mg/dL (5-40)
[2023-10-04 13:42] LABS: Vitamin D,25 Hydroxy 69.3 ng/mL
== END | disposition home or self-care (01) ==
LOC: MTLAB 08:29
PROVIDERS: PCP Internal Medicine; Referring Provider Internal Medicine; Visit Provider Internal Medicine
DX: I10 Essential (primary) hypertension (principal); E78.5 Hyperlipidemia, unspecified; E03.9 Hypothyroidism, unspecified; R73.9 Hyperglycemia, unspecified; M10.9 Gout, unspecified; E55.9 Vitamin D deficiency, unspecified
CPT/HCPCS: 36415; 80053; 80061; 82306; 83036; 84439; 84443; 84550; 85025

== ENCOUNTER → 2024-01-15 | Outpatient (CLI) | payer MEDICARE, OTHER, SELFPAY ==
[2024-01-15 10:50] LABS: Anion Gap 6 (5-15); BUN 13 mg/dL (7-18); BUN/Creat Ratio 12.4 RATIO (10-20); Calcium,Total 9.1 mg/dL (8.5-10.1); Chloride 101 mmol/L (98-107); Creatinine, Serum 1.05 mg/dL (0.70-1.30); EST Glomerular Filtration Rate 72 mL/min (>60); Est Glom Filt Rate - Afr Amer 87 mL/min (>60); Glucose 111 mg/dL (74-106); Sodium Level 135 mmol/L (136-145)
[2024-01-15 10:59] LABS: Hemoglobin A1c 5.7 % (3.8-5.6)
== END | disposition home or self-care (01) ==
LOC: MTLAB 08:34
PROVIDERS: PCP Internal Medicine; Referring Provider Internal Medicine; Visit Provider Internal Medicine
DX: R73.03 Prediabetes (principal)
CPT/HCPCS: 36415; 80048; 83036

== ENCOUNTER → 2024-02-24 | Outpatient (CLI) | payer MEDICARE, OTHER, SELFPAY ==
[2024-02-24 16:18] LABS: ALB/GLOB Ratio 0.9 RATIO (0.9-2.4); AST(SGOT) 32 U/L (15-37); Alanine Aminotransfer ALT/SGPT 36 U/L (16-61); Albumin, Serum 3.5 g/dL (3.2-5.0); Alkaline Phosphatase 87 U/L (45-117); Anion Gap 7 (5-15); BUN 16 mg/dL (7-18); BUN/Creat Ratio 15.1 RATIO (10-20); Calcium,Total 9.6 mg/dL (8.5-10.1); Chloride 105 mmol/L (98-107); Creatinine, Serum 1.06 mg/dL (0.70-1.30); EST Glomerular Filtration Rate 71 mL/min (>60); Est Glom Filt Rate - Afr Amer 86 mL/min (>60); Globulin 3.7 g/dL (2.2-4.2); Glucose 108 mg/dL (74-106); Magnesium 1.7 mg/dL (1.6-2.6); Potassium 3.9 mmol/L (3.5-5.1); Protein, Total 7.2 g/dL (6.4-8.2); Sodium Level 139 mmol/L (136-145)
== END | disposition home or self-care (01) ==
LOC: MTLAB 13:07
PROVIDERS: PCP Internal Medicine; Referring Provider Internal Medicine Endocrinology, Diabetes & Metabolism; Visit Provider Internal Medicine Endocrinology, Diabetes & Metabolism
DX: E03.8 Other specified hypothyroidism (principal); E83.42 Hypomagnesemia
CPT/HCPCS: 36415; 80053; 83735; 84443

== ENCOUNTER → 2024-08-10 | Outpatient (CLI) | payer MEDICARE, OTHER, SELFPAY ==
[2024-08-10 15:59] LABS: ALB/GLOB Ratio 1.4 RATIO (0.9-2.4); AST(SGOT) 31 U/L (<=37); Alanine Aminotransfer ALT/SGPT 33 U/L (<=46); Albumin, Serum 4.2 g/dL (3.4-4.8); Alkaline Phosphatase 93 U/L (40-129); Anion Gap 12 (5-15); BUN 18 mg/dL (4-19); BUN/Creat Ratio 19.2 RATIO (10-20); Calcium,Total 9.3 mg/dL (7.6-11.0); Carbon Dioxide 24.6 mmol/L (21.0-32.0); Chloride 99 mmol/L (98-108); Creatinine, Serum 0.93 mg/dL (0.70-1.20); EST Glomerular Filtration Rate 82 (>60); Glucose 90 mg/dL (70-99); Potassium 4.1 mmol/L (3.3-5.1); Protein, Total 7.2 g/dL (5.9-8.4); Sodium Level 135 mmol/L (133-145); Thyroid Stim Hormone (TSH) 0.988 uIU/mL (0.300-4.200); Total Bilirubin 0.42 mg/dL (0.00-1.30); Vitamin D,25 Hydroxy 39.5 ng/mL (30-100)
== END | disposition home or self-care (01) ==
LOC: MTLAB 13:10
PROVIDERS: PCP Internal Medicine; Referring Provider Internal Medicine Endocrinology, Diabetes & Metabolism; Visit Provider Internal Medicine Endocrinology, Diabetes & Metabolism
DX: E03.8 Other specified hypothyroidism (principal); E55.9 Vitamin D deficiency, unspecified
CPT/HCPCS: 36415; 80053; 82306; 84443

== ENCOUNTER → 2024-09-24 | Outpatient (CLI) | payer MEDICARE, OTHER, SELFPAY ==
[2024-09-24 13:05] LABS: Hemoglobin A1c 6.1 % (<=5.6)
[2024-09-24 13:14] LABS: ALB/GLOB Ratio 1.3 RATIO (0.9-2.4); AST(SGOT) 37 U/L (<=37); Alanine Aminotransfer ALT/SGPT 34 U/L (<=46); Albumin, Serum 4.1 g/dL (3.4-4.8); Alkaline Phosphatase 84 U/L (40-129); Anion Gap 12 (5-15); BUN 14 mg/dL (4-19); BUN/Creat Ratio 16.7 RATIO (10-20); Calcium,Total 9.1 mg/dL (7.6-11.0); Carbon Dioxide 22.4 mmol/L (21.0-32.0); Chloride 103 mmol/L (98-108); Cholesterol 116 mg/dL (<=200); Creatinine, Serum 0.85 mg/dL (0.70-1.20); EST Glomerular Filtration Rate 87 (>60); Globulin 3.1 g/dL (2.2-4.2); Glucose 113 mg/dL (70-99); High Density Lipoprotein 53 mg/dL; Low Density Lipoprotein Calc. 47 mg/dL; Potassium 4.2 mmol/L (3.3-5.1); Protein, Total 7.2 g/dL (5.9-8.4); Sodium Level 137 mmol/L (133-145); Thyroid Stim Hormone (TSH) 0.941 uIU/mL (0.300-4.200); Total Bilirubin 0.47 mg/dL (0.00-1.30); Triglycerides 80 mg/dL; Uric Acid 6.9 mg/dL (3.5-7.2); Very Low Density Lipoprotein 16 mg/dL (5-40); Vitamin D,25 Hydroxy 43.2 ng/mL (30-100); cholesterol:hdl ratio screen 2.21
== END | disposition home or self-care (01) ==
LOC: MTLAB 09:48
PROVIDERS: PCP Internal Medicine; Referring Provider Internal Medicine; Visit Provider Internal Medicine
DX: Z12.5 Encounter for screening for malignant neoplasm of prostate (principal); R73.03 Prediabetes; E03.9 Hypothyroidism, unspecified; E55.9 Vitamin D deficiency, unspecified; M10.9 Gout, unspecified; E78.5 Hyperlipidemia, unspecified
CPT/HCPCS: 36415; 80053; 80061; 82306; 83036; 84153; 84439; 84443; 84550; G0103

== ENCOUNTER 2024-11-18 12:30 | Outpatient (RCR) | payer MEDICARE, OTHER, SELFPAY ==
--- NOTE | 2024-10-21 15:13 | HP.PTEVAL_ITS ---
Patient's Visit Information Visit Information Visit Information: AVEL SANFORD is a 84 year old M referred to Physical Therapy by ZULEYMA Myers with a diagnosis of Right Ankle Instability. Date of Evaluation: 10/21/24 Physical Therapist: Kayleen Chance DPT Visit Plan Frequency: 1x/Week Duration: 4 Weeks Plan: Pt to perform an indep home exercise program of HR/TR, SLS, Tandem Stance bilateral, Gastroc Stretch with towel and get a good pair of inserts for good arch support. He will follow up with PT in 3 weeks and call if questions arise. Subjective Subjective: Once a week the right ankle will turn in on him and it takes him off balance. He has back problems so he has not been walking as much as he was- 4 miles a week but has not been doing it for about 3 months due to his back pain- he had an ablasion last week which is still pretty sore. No falls but feels that that its just unstable. 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 The surface does not matter- neither does the time of day. 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 He plans to get a stimulator in his back. No weakness in his legs with the back pain. No orthotics in his shoes. The shoes are not new that he was having the instability in it. PMHx/Meds: no changes. Objective Objective: Posture: forward head, rounded shoulders-can correct but does not maintain- guarded due to back pain HR/TR: able but reports discomfort with HR after 5 repetitions SLS: weight shift but unable to SLS without loss of balance, Tandem Stance: more instability leading with right LE. Observation: pes planus in stance ROM: DF: 5 degrees, PF: 60 degrees, Inver: 40 degrees Ever: 30 degrees. Strength: Ankle: 5/5, Knee: 5/5 Hip: 4+/5, Core: fair minus Flex: HS: severe, Gastroc: severe, Soleus: moderate Palpation: tender along peroneals, lateral malleolus Balance/Special Test Scores CATSIB Score (Max score 120 seconds): 65 Lower Extremity Functional Score: 44 Goals Goal 1:: Patient will be I with HEP and progression Goal Time Frame: 4-6 Weeks Goal 2:: Patient will HR/TR without pain Goal Time Frame: 4-6 Weeks Goal 3:: Patient will SLS for 5 seconds without LOB Goal Time Frame: 4-6 Weeks Goal 4:: Patient will report no instability. Goal Time Frame: 4-6 Weeks Goal 5:: Patient will report 80% improvement Goal Time Frame: 4-6 Weeks Rehabilitation Potential Physical Therapy Diagnosis: Patient presents with decreased LE and core strength/stabilization, flex, proprioception and muscular endurance leading to instability. Rehabilitation Potential: Good Anticipated Interventions Therapeutic Exercise to Include: Strength training, Balance training, Body mechanics, Postural training, Flexibilty training, Gait and locomotor training, Neuromotor development, Passive ROM, Active ROM, Dynamic Lumbar Stabilization and Scapular Strength/Stabilization For the Purpose of:: To improve muscle performance and motor function Text: Thank you for the opportunity to evaluate your patient. For Medicare and Medicare HMO plans, please review the plan of care and approve it. It will need to be FAXED BACK to us at [phone] for Medicare purposes. For Medicare only, by signing this I certify the plan of care. Please let me know if there are questions or concerns regarding this plan of care. Physician Signature: Date:
--- NOTE | 2024-11-18 13:08 | HP.PTDCSUM ---
Discharge Summary D/C summary: It has been my pleasure to treat AVEL SANFORD referred by ZULEYMA Myers, with the diagnosis of Right Ankle Instability for a total of 2 visit(s). Discharge Date: 11/18/24 Please see the following information for a summary of their discharge status. Subjective Subjective: PATIENT REPORTS HE ALMOST CANCELLED TODAY BECAUSE HE ISN'T HAVING A PROBLEM WITH HIS ANKLE ANYMORE. HE REPORTS THE EX'S WERE A SIMPLE CURE AND HE PLANS TO KEEP DOING THEM. HE STATES THE EX'S HAVE HELPED HIS BALANCE AND EVERYTHING AND HE HASN'T TURNED HIS ANKLE SINCE HE WAS HERE LAST. HE DENIES ANY FALLS AND HE DENIES PAIN. Overall Improvement % Improvement: 100 Objective Objective/Function: PATIENT WAS SEEN TODAY FOR RE-ASSESSMENT OF PROGRESS TOWARD THE SET PT GOALS AND THE NEED FOR FURTHER PHYSICAL THERAPY VS READINESS FOR DISCHARGE. UPON EXAM TODAY: HR/TR: ABLE X 5 PAINFREE SLS: TANDEM STANCE AND SLS X AT LEAST 5 SEC EA DOM WITHOUT UE ASSIST AND WITHOUT C/O PAIN. R LE ROM: DF: 8 degrees, PF: 63 degrees, Inver: 35 degrees Ever: 20 degrees. Strength: DOM LE'S 5/5. Palpation: NO R ANKLE TENDERNESS WITH PALPATION TODAY. Goals Goal 1:: Patient will be I with HEP and progression Goal Progress: Goal Met Goal 2:: Patient will HR/TR without pain Goal Progress: Goal Met Goal 3:: Patient will SLS for 5 seconds without LOB Goal Progress: Goal Met Goal 4:: Patient will report no instability. Goal Progress: Goal Met Goal 5:: Patient will report 80% improvement Goal Progress: Goal Met Plan Plan: D/C TO INDEP HEP. PATIENT AGREEABLE. D/C Information d/c sentence: If there are questions or concerns regarding this patient's physical therapy, please feel free to call me at [phone]. Thank you for the referral of this patient. Sincerely, Lyndsey Kiran, PT, Cert MDT Balance/Gait/Functional tests Balance/Special Test Scores CATSIB Score (Max score 120 seconds): 65 Lower Extremity Functional Score: 53 Improvement % Improvement: 100
== END 2024-11-18 19:00 | disposition home or self-care (01) ==
LOC: PT 12:30
PROVIDERS: PCP Internal Medicine; Referring Provider Physician Assistant Surgical; Visit Provider Physician Assistant Surgical
DX: M25.371 Other instability, right ankle (principal)
CPT/HCPCS: 97110; 97162; 97530

== ENCOUNTER 2024-12-18 14:32 | Emergency (ER) | payer MEDICARE, OTHER, SELFPAY ==
[2024-12-18 14:32] VITALS: BP 125/70; PULSE 60; RESP 16; TEMP 36.8; O2SAT 98; BMI 38.6
--- NOTE | 2024-12-18 15:52 | ED.VIS.BACK ---
HPI History of Present Illness Chief Complaint: Back Narrative Narrative: Chief complaint and HPI: Chronic back pain. 84-year-old male with past medical history of chronic back pain who follows with pain management presents for evaluation of chronic back pain. Patient states that he follows with Dr. Gill with pain management. He states he is currently on Percocet daily for his back pain. States that his back pain has progressively been worsening in which he was just started on a prednisone Dosepak and is scheduled to have a nerve stimulator placed. States his chronic back pain is lumbar and mostly located on the left. Denies numbness, weakness, urinary retention, stool or urinary incontinence, saddle anesthesia, fever, chills, nausea, vomiting. Patient states that he assumed the pain management clinic was closed today which is why he presents to the emergency department. He denies any new trauma. Review of systems: See HPI Medications: As listed on the chart Allergies: As listed on the chart PFSH: Per chart Vital signs: As listed on the chart. Reviewed. Physical exam: Gen: A&O x3, NAD Head: Normocephalic, atraumatic Eyes: No sclera icterus, conjunctiva clear ENT: Moist mucous membranes Neck: Trachea midline, No JVD, Nontender, full range of motion CV: RRR, no murmurs Resp: Lungs CTA BL, no w/r/c GI: Abd soft, non-distended, non-tender, no r/r/g Musc: Full ROM, no deformity, no spinal TTP, no archie step-offs, tenderness to palpation over the paraspinal musculature of the lumbar spine on the left-no signs of trauma or infection, strength +5/5 in all extremities, DP/PT pulses +2 bilaterally, normal gait Skin: Warm, dry, intact Neuro: Alert, oriented, grossly intact, sensation intact, no saddle paresthesias Psych: Cooperative, appropriate mood and affect [facility] Medical History History of non-ST elevation myocardial infarction (NSTEMI) (02/21/20) Postoperative atrial fibrillation (02/22/20) Hypothyroidism Atherosclerotic heart disease [place] coronary artery w/angina pectoris Essential (primary) hypertension Hypomagnesemia Hypertensive emergency Obesity (BMI 30.0-34.9) Anxiety and depression DEEPAK (obstructive sleep apnea) HLD (hyperlipidemia) Hyperglycemia Hypokalemia Hypertensive urgency Home Medications ?Medication ?Instructions ?Recorded ?Last Taken ?Type levothyroxine 50 mcg tablet 50 mcg PO DAILY thyroid 01/16/19 02/20/20 History 50 mcg furosemide 20 mg tablet 40 mg (2 x 20 mg) PO DAILY #180 06/29/22 Unknown Rx tabs fluoxetine 20 mg capsule 60 mg PO DAILY anxiety 03/21/23 Unknown History potassium chloride 20 mEq 20 meq PO DAILY 03/21/23 Unknown History tablet,extended release(part/cryst) (Klor-Con M) aspirin 81 mg tablet,delayed 81 mg PO DAILY 12/12/23 Unknown History release (Adult Low Dose Aspirin) cholecalciferol (vitamin D3) 1,250 50,000 unit PO Q2W deficency 12/12/23 Unknown History mcg (50,000 unit) capsule metformin 500 mg tablet,extended 500 mg PO QPM 12/12/23 Unknown History release 24 hr atorvastatin 80 mg tablet 80 mg PO QHS #90 tabs 04/02/24 Unknown Rx metoprolol tartrate 25 mg tablet 12.5 mg (1/2 x 25 mg) PO BID #45 08/27/24 Unknown Rx TABLETS valsartan 160 1 tab PO DAILY #90 tabs 08/27/24 Unknown Rx mg-hydrochlorothiazide 12.5 mg tablet amlodipine 5 mg tablet 5 mg PO DAILY #90 tabs 08/28/24 Unknown Rx Allergy/AdvReac Type Severity Reaction Status Date / Time shellfish derived Allergy Other Verified 12/18/24 14:34 Family History Mother CAD (coronary artery disease) Father CAD (coronary artery disease) Brother CAD (coronary artery disease) Surgical History H/O radiofrequency ablation (RFA) of nerve of lumbar spine (~11/2023) H/O prostatectomy (~06/2021) H/O coronary artery bypass surgery (02/22/20) History of left heart catheterization (02/22/20) Social History Smoking Status: Never smoker alcohol intake: current alcohol intake frequency: a few times a week Alcohol type: wine substance use type: does not use caffeine: Yes Type: coffee Number of servings: 2 EXAM Physical Exam Const Vital Signs: 12/18/24 14:32 Temperature 98.3 F Temperature Source Oral Pulse Rate 60 Respiratory Rate 16 Blood Pressure 125/70 H Blood Pressure Mean 88 Pulse Ox 98 Oxygen Delivery Method Room Air MDM MDM MDM Narrative Medical decision making narrative: 84-year-old male with past medical history of chronic back pain who follows with pain management presents for evaluation of chronic back pain. Patient states that he follows with Dr. Gill with pain management. He states he is currently on Percocet daily for his back pain. States that his back pain has progressively been worsening in which he was just started on a prednisone Dosepak and is scheduled to have a nerve stimulator placed. There has been no trauma. There is nothing to suggest any infectious etiology. There is no neurologic findings to suggest an acute cauda equina syndrome, infectious etiology, or any acute radiculopathy. At this point I do not feel any emergent imaging such as x-rays or MRI are warranted. Before patient's symptoms will be treated and given that patient follows with pain management, I did try to contact pain management specifically Dr. Gill. Pain management office is closed. Will give the patient IM morphine for pain relief. Offered lidocaine patches but declined states they do not work. States he will continue his home prednisone and Percocet. Return precautions were explained. He was told to follow-up with pain management. He confirmed understanding of the plan. Patient stable to discharge home. Impression: 1. Chronic lumbar back pain 2. Follows with pain management Discharge Plan Triage Chief Complaint: Back ED Provider: Aj Mohan Dx/Rx/DC Orders Prescriptions: No Action potassium chloride [Klor-Con M20] 20 mEq tablet,ER particles/crystals 20 meq PO DAILY Patient Comments: TAKE 1 TABLET BY MOUTH EVERY DAY metformin 500 mg tablet extended release 24 hr 500 mg PO QPM aspirin [Adult Low Dose Aspirin] 81 mg tablet,delayed release (DR/EC) 81 mg PO DAILY levothyroxine 50 MCG tablet 50 mcg PO DAILY fluoxetine 20 mg capsule 60 mg PO DAILY cholecalciferol (vitamin D3) 1,250 mcg (50,000 unit) capsule 50,000 unit PO Q2W furosemide 20 mg tablet 40 mg PO DAILY Qty: 180 3RF atorvastatin 80 mg tablet 80 mg PO QHS Qty: 90 3RF metoprolol tartrate 25 mg tablet 12.5 mg PO BID Qty: 45 3RF valsartan-hydrochlorothiazide 160-12.5 mg tablet 1 tab PO DAILY Qty: 90 3RF amlodipine 5 mg tablet 5 mg PO DAILY Qty: 90 3RF Primary Care Provider: Sally Valente Referrals: Sally Valente MD [Primary Care Provider] - Print Language: Turkish
[2024-12-18 16:21] VITALS: BP 151/76; PULSE 89; RESP 14; TEMP 37.1; O2SAT 99
== END 2024-12-18 16:50 | disposition home or self-care (01) ==
PROVIDERS: Emergency Provider Surgery; PCP Internal Medicine; Visit Provider Surgery
DX: M54.50 Low back pain, unspecified (principal); G89.29 Other chronic pain; I10 Essential (primary) hypertension; I25.10 Atherosclerotic heart disease of native coronary artery without angina pectoris; E78.5 Hyperlipidemia, unspecified
CPT/HCPCS: 96372; 99282

== ENCOUNTER → 2025-03-01 | Outpatient (CLI) | payer MEDICARE, OTHER, SELFPAY ==
--- NOTE | 2025-03-01 13:42 | ECHOD_ITS ---
Reason For Study Reason For Study: Murmur Procedure This was a 2D Doppler, Color Flow transthoracic echocardiogram. The study was technically difficult. Exam performed in department. Left Ventricle Normal LV size. The left ventricular ejection fraction is 55 %. No regional wall motion abnormalities noted. Right Ventricle Normal RV size. Normal systolic function. Atria The left atrium is severely enlarged. The right atrium is moderately enlarged. Mitral Valve Normal mitral valve. Mild (1+) eccentric mitral valve insufficiency. Tricuspid Valve Normal tricuspid valve. Mild (1+) tricuspid valve insufficiency. Pulmonary artery systolic pressure is 33 mmHg. Aortic Valve Trisinus/trileaflet aortic valve. Mild focal aortic valve calcification. Peak aortic valve gradient 27 mmHg. Mean aortic valve gradient 15 mmHg. Mild aortic stenosis. Pulmonic Valve Normal pulmonic valve. Great Vessels Normal aortic root. The pulmonary artery is normal size. Inferior vena cava collapse with respiration. Pericardium/Pleural No pericardial effusion. Medication 22 gauge I.V. with prn adaptor inserted into right arm. Diluted definity 1.0ml given slow IV push to enhance endocardial definition. MMode/2D Measurements & Calculations LVIDd: 6.4 cm IVSd: 1.4 cm LVOT diam: 2.2 cm LVIDs: 5.5 cm LVPWd: 0.80 cm RVDd: 4.6 cm FS: 14.4 % LVOT area: 3.9 cm2 Ao root diam: 3.4 cm LAV(MOD-bp): 109.5 ml LVAd ap4: 41.0 cm2 LAV(MOD-bp) Indexed: 46.5 ml/m2 LVLd ap4: 8.8 cm LAV(MOD-sp2): 97.9 ml EDV(MOD-sp4): 147.7 ml LAV(MOD-sp4): 115.9 ml EDV(sp4-el): 163.2 ml LVAs ap4: 25.7 cm2 LVLs ap4: 7.3 cm ESV(MOD-sp4): 74.0 ml ESV(sp4-el): 76.5 ml EF(MOD-sp4): 49.9 % EF(sp4-el): 53.1 % LVAd ap2: 38.8 cm2 SV(MOD-sp4): 73.7 ml SV(MOD-sp2): 75.9 ml LVLd ap2: 8.6 cm SI(MOD-sp4): 31.3 ml/m2 SI(MOD-sp2): 32.3 ml/m2 EDV(MOD-sp2): 145.8 ml EDV(sp2-el): 149.2 ml LVAs ap2: 24.1 cm2 LVLs ap2: 6.8 cm ESV(MOD-sp2): 69.9 ml ESV(sp2-el): 72.9 ml EF(MOD-sp2): 52.1 % SV(sp4-el): 86.7 ml LA dimension(2D): 4.8 cm LA A4 area: 30.2 cm2 RA A4 area: 27.8 cm2 TAPSE: 1.9 cm Time Measurements MV dec time: 0.23 sec Doppler Measurements & Calculations MV E max elia: 82.7 cm/sec Lat Peak E' Elia: 12.9 cm/sec Med Peak E' Elia: 5.0 cm/sec MV A max elia: 65.3 cm/sec E/E' lat: 6.4 E/E' med: 16.5 MV E/A: 1.3 Ao V2 max: 260.1 cm/sec AI max elia: 358.6 cm/sec MV dec slope: 359.2 cm/sec2 Ao max P.1 mmHg AI max P.5 mmHg Ao V2 mean: 185.6 cm/sec Ao mean P.3 mmHg AI dec slope: 154.8 cm/sec2 Ao V2 VTI: 59.6 cm AI P1/2t: 678.5 msec AV (velocity ratio): 0.49 ANGELIQUE(I,D): 1.9 cm2 ANGELIQUE(V,D): 2.0 cm2 LV V1 max: 129.9 cm/sec SV(LVOT): 113.8 ml PA V2 max: 96.5 cm/sec LV V1 max P.8 mmHg LV V1 mean P.9 mmHg LV V1 mean: 93.0 cm/sec LV V1 VTI: 29.0 cm TR max elia: 270.8 cm/sec TR max P.4 mmHg ECHO/Echo Complete W/ Contrast Interpretation Summary The left ventricular ejection fraction is 55 %. Normal LV size. Biatrial enlargement. Mild aortic stenosis. Mean aortic valve gradient 15 mmHg. Contrast injection was performed. Ordering Physician: Juan Manuel Smiley Referring Physician: Sally Valente Performed By: Princess De RDCS
== END | disposition home or self-care (01) ==
LOC: CVS 13:42
PROVIDERS: PCP Internal Medicine; Referring Provider Internal Medicine Cardiovascular Disease; Visit Provider Internal Medicine Cardiovascular Disease
DX: I35.0 Nonrheumatic aortic (valve) stenosis (principal); R01.1 Cardiac murmur, unspecified
CPT/HCPCS: 93306; Q9957; A4216; C8929

== ENCOUNTER → 2025-03-09 | Outpatient (CLI) | payer MEDICARE, OTHER, SELFPAY ==
[2025-03-09 10:29] LABS: AST(SGOT) 30 U/L (<=37); Alanine Aminotransfer ALT/SGPT 26 U/L (<=46); Albumin, Serum 4.1 g/dL (3.4-4.8); Alkaline Phosphatase 81 U/L (40-129); Anion Gap 11 (5-15); BUN 16 mg/dL (4-19); BUN/Creat Ratio 14.8 RATIO (10-20); Calcium,Total 9.3 mg/dL (7.6-11.0); Carbon Dioxide 26.4 mmol/L (21.0-32.0); Chloride 102 mmol/L (98-108); Globulin 3.1 g/dL (2.2-4.2); Glucose 128 mg/dL (70-99); Magnesium 2.0 mg/dL (1.5-2.2); Potassium 3.7 mmol/L (3.3-5.1)
== END | disposition home or self-care (01) ==
LOC: MTLAB 09:03
PROVIDERS: PCP Internal Medicine; Referring Provider Nurse Practitioner Adult Health; Visit Provider Nurse Practitioner Adult Health
DX: E03.9 Hypothyroidism, unspecified (principal); E83.42 Hypomagnesemia
CPT/HCPCS: 36415; 80053; 83735; 84443